=== PATIENT | female | born 1945 | race Caucasian/White ===

== ENCOUNTER 2016-05-02 00:48 | Inpatient (IN) | payer MEDICARE, BC ==
[~2016-05-02] VITALS: Ht 157.5 cm; Wt 67.0 kg
[~2016-05-02 00:48] MED LIST: ALUM5LIQ PO; CHOL50006 PO; CYAN1000P IM; ESTR1TAB PO; FENT100D TD; FENT25DI TD; LEVO137T2 PO; LORTA5 PO; SERT-129 PO
[2016-05-02 00:53] VITALS: BP 225/103; PULSE 70; RESP 16; TEMP 98.1; O2SAT 98
[2016-05-02] MEDS ORDERED: DIATRIZOATE MEGLUM/DIATRIZOATE SOD 9 ML CUP ONE (02:18)
[2016-05-02] MEDS ORDERED: ONDANSETRON HCL 4 MG/2 ML VIAL IVP ONE (02:45)
[2016-05-02] MEDS ORDERED: MORPHINE SULFATE 4 MG/ML INJ IV ONE (02:45)
--- NOTE | 2016-05-02 02:46 | PD ---
HPI Chief Complaint: GI Complaint Time Seen by Provider: 02:13 Travel History International Travel<30 days: No Contact w/Intl Traveler<30days: No Traveled to known affect area: No History of Present Illness HPI 70-year-old female presents with nausea and sharp abdominal pain. Location is central [place]. She states this feels like prior abdominal blockage. She states she's had frequent history of this with last couple months ago. She states all of her hospitalizations have been through our hospital. Quality pain is sharp. Severity is severe. She denies specific modifying factors. She denies other concurrent complaints. 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)) Cardiovascular Problems: Yes (HX OF TACHYCARDIA) Chemotherapy: Yes (last chemo -/GETS HYDRATION THERAPY) Chest Pain: No Congestive Heart Failure: No COPD: No Cerebrovascular Accident: No Diabetes: No Diminished Hearing: No Endocrine: Yes Gastrointestinal Disorders: Yes (HX OF COLON CA, ILEOSTOMY/ DEHYDRATION, CHRONIC IRRITATION ILEOSTOMY SITE) GERD: No Genitourinary: Yes (HX BLADDER CANCER/"KIDNEY FUNCTION ABOUT 25% NORMAL", HOA NEPHROSTOMY TUBES) Headaches: No Hepatitis: No Hiatal Hernia: No Heparin Induced Thrombocytopen: No Hypertension: No Immune Disorder: No Implanted Vascular Access Dvce: Yes (RIGHT SIDED POWER PORT) Kidney Stones: No Medical other: Yes (ANEMIA) Musculoskeletal: Yes (C5-6 HNP, ARTHRITIS) Neurologic: No Psychiatric: No (HX OF DEPRESSION, ANXIETY) Reproductive: No Respiratory: No Immunizations Current: Yes Migraines: No Radiation Therapy: Yes () Renal Failure: Yes (HX OF DIALYSIS PRIOR TO NEPHROSTOMY TUBES ) Seizures: No Sickle Cell Disease: No Sleep Apnea: No Thyroid Disease: Yes (HX OF THYROID CA,TOTAL THYROIDECTOMY 2003) Ulcer: No Tetanus Vaccination: < 5 Years Influenza Vaccination: Yes Menopausal: Yes : 0 Para: 0 Miscarriage: 0 : 0 Past Surgical History Abdominal Surgery: Yes (COLON CA SX/COLOSTOMY 1994,BOWEL OBSTRUCTION ", SACRAL MASS , CHEMO/RAD) AICD: No Appendectomy: Yes Arteriovenous Shunt: No Body Medical Devices: NEPHROSTOMY TUBES, POWER PORT Cardiac Surgery: No Ear Surgery: No Endocrine Surgery: Yes (THYROIDECTOMY 2004, IMPLANTED PARATHYROID IN L UPPER ARM) Eye Surgery: No Genitourinary Surgery: Yes (URETER STENTS -->NEPHROSTOMY TUBES 2010) Gynecologic Surgery: Yes (HYSTERECTOMY) Hysterectomy: Yes Insulin Pump: No Joint Replacement: No Neurologic Surgery: No Oral Surgery: No Pacemaker: No Thoracic Surgery: No Other Surgery: Yes (SKIN CANCER REMOVAL, RIGHT SIDE PORT) Social History Alcohol Use: Yes (SOCIALLY) Tobacco Use: No Substance Use: No Allergies-Medications (Allergen,Severity, Reaction): Coded Allergies: No Known Allergies (Unverified , 05/02/16) Reported Meds & Prescriptions Reported Meds & Active Scripts Active Reported Sertraline (Sertraline HCl) 100 Mg Tab 100 Mg PO HS Levothyroxine (Levothyroxine Sodium) 125 Mcg Tab 125 Mcg PO DAILY [place] (Hydrocodone-Acetaminophen) 5-325 mg Tab 1 Tab PO Q4H PRN Estradiol 1 Mg Tab 1 Mg PO HS Cyanocobalamin Inj (Cyanocobalamin) 1,000 Mcg/Ml Inj 1,000 Mcg IM Q30D Calcitriol 0.25 Mcg Cap 0.25 Mcg PO DAILY Vitamin D (Cholecalciferol) 1,000 Unit Tab 5,000 Units PO DAILY Fentanyl Patch 72 HR (Fentanyl) 25 Mcg/Hr Patch 25 Mcg T-DERMAL Q72H Fentanyl Patch 72 HR (Fentanyl) 100 Mcg/Hr Patch 100 Mcg T-DERMAL Q72H Remove old patch when new one placed. Review of Systems Except as stated in HPI: all other systems reviewed are Neg Physical Exam Narrative GENERAL: Well-nourished, well-developed patient. SKIN: Warm and dry. HEAD: Normocephalic and atraumatic. EYES: No injection or drainage. ENT: No nasal drainage noted. NECK: Supple, trachea midline. CARDIOVASCULAR: Regular rate and rhythm RESPIRATORY: Breath sounds equal bilaterally. No accessory muscle use. GASTROINTESTINAL: Abdomen soft, diffusely tender, nondistended. Colostomy noted NEUROLOGICAL: Awake. Motor and sensory grossly within normal limits. Normal speech. Data Data Last Documented VS Vital Signs Date Time Temp Pulse Resp B/P Pulse Ox O2 Delivery O2 Flow Rate FiO2 05/02/16 03:46 64 18 125/67 97 Room Air 05/02/16 00:53 98.1 Orders Complete Blood Count With Diff (05/02/16 02:13) Comprehensive Metabolic Panel (05/02/16 02:13) Urinalysis - C+S If Indicated (05/02/16 02:13) Lipase (05/02/16 02:13) Iv Access Insert/Monitor (05/02/16 02:13) Oximetry (05/02/16 02:13) Oral Contrast - Adult (05/02/16 02:15) Diatrizoate Liq ( Gastroquirino Liq) (05/02/16 02:18) Morphine Inj (Morphine Inj) (05/02/16 02:45) Ondansetron Inj (Zofran Inj) (05/02/16 02:45) Sodium Chlor 0.9% 1000 Ml Inj (Ns 1000 M (05/02/16 03:30) Ct Abd/Pel W/O Iv Contrast (05/02/16 ) Admit Order (Ed Use Only) (05/02/16 05:02) Consult Colorectal Surgery (05/02/16 ) Consult Urology (05/02/16 ) Labs Laboratory Tests Test 05/02/16 05/02/16 02:35 04:57 White Blood Count 10.2 TH/MM3 Red Blood Count 3.36 MIL/MM3 Hemoglobin 10.5 GM/DL Hematocrit 31.4 % Mean Corpuscular Volume 93.2 FL Mean Corpuscular Hemoglobin 31.3 PG Mean Corpuscular Hemoglobin 33.6 % Concent Red Cell Distribution Width 13.5 % Platelet Count 235 TH/MM3 Mean Platelet Volume 8.7 FL Neutrophils (%) (Auto) 92.2 % Lymphocytes (%) (Auto) 4.4 % Monocytes (%) (Auto) 2.9 % Eosinophils (%) (Auto) 0.1 % Basophils (%) (Auto) 0.4 % Neutrophils # (Auto) 9.4 TH/MM3 Lymphocytes # (Auto) 0.5 TH/MM3 Monocytes # (Auto) 0.3 TH/MM3 Eosinophils # (Auto) 0.0 TH/MM3 Basophils # (Auto) 0.0 TH/MM3 CBC Comment DIFF FINAL Differential Comment Sodium Level 144 MEQ/L Potassium Level 4.3 MEQ/L Chloride Level 113 MEQ/L Carbon Dioxide Level 19.9 MEQ/L Anion Gap 11 MEQ/L Blood Urea Nitrogen 31 MG/DL Creatinine 2.87 MG/DL Estimat Glomerular Filtration 16 ML/MIN Rate Random Glucose 111 MG/DL Calcium Level 8.8 MG/DL Total Bilirubin 0.3 MG/DL Aspartate Amino Transf 16 U/L (AST/SGOT) Alanine Aminotransferase 12 U/L (ALT/SGPT) Alkaline Phosphatase 90 U/L Total Protein 7.7 GM/DL Albumin 2.9 GM/DL Lipase 152 U/L Urine Color LIGHT-YELLOW Urine Turbidity HAZY Urine pH 5.0 Urine Specific [place] 1.010 Urine Protein 30 mg/dL Urine Glucose (UA) NEG mg/dL Urine Ketones NEG mg/dL Urine Occult Blood MOD Urine Nitrite NEG Urine Bilirubin NEG Urine Urobilinogen LESS THAN 2.0 MG/DL Urine Leukocyte Esterase LARGE Urine RBC 6 /hpf Urine WBC 180 /hpf Urine WBC Clumps FEW Urine Squamous Epithelial <1 /hpf Cells Urine Bacteria OCC /hpf Urine Yeast (Budding) RARE Microscopic Urinalysis Comment CULTURE INDICATED MDM Medical Decision Making Medical Screen Exam Complete: Yes Emergency Medical Condition: Yes Medical Record Reviewed: Yes (past history confirmed) Interpretation(s) CBC & BMP Diagram 05/02/16 02:35 Last 24 hours Impressions Abdomen/Pelvis CT 05/02/16 0000 Signed Impressions: Service Date/Time: Monday, May 02, 2016 03:26 - CONCLUSION: Prominent bilateral hydronephrosis. Mild nonspecific distention of small bowel are and small volume of free peritoneal fluid. Small lower abdominal incisional hernia defect containing a knuckle of small bowel. Spencer Sandoval MD ua with uti Differential Diagnosis Obstruction, stone, colitis, diverticulitis, adhesions... Narrative Course Will check blood work, urinalysis, CT scan and dose with morphine and Zofran and reevaluate ed workup with acute renal failure, UTI, hydronephrosis, incisional hernia defect without bowel obstruction, will discuss with her specialist and admit to the hospital Physician Communication Physician Communication spencer de anda states to admit to dr lucy gil states to admit with iv antibiotics and consult IR for percutaneous drain on right later today as she can't wait to have done tuesday now Diagnosis Primary Impression: Acute renal failure Qualified Code: N17.9 - Acute renal failure, unspecified acute renal failure type Additional Impressions: Hydronephrosis Qualified Code: N13.30 - Hydronephrosis, unspecified hydronephrosis type UTI (urinary tract infection) Qualified Code: N39.0 - Urinary tract infection without hematuria, site unspecified Incisional hernia Qualified Code: K43.2 - Incisional hernia, without obstruction or gangrene Admitting Information Admitting Physician Requests: it Omayra Rider MD May 02, 2016 02:46
[2016-05-02 02:50] LABS: AUTOMATED NEUTROPHIL # 9.4 TH/MM3 (1.8-7.7); BASOPHIL % 0.4 % (0.0-2.0); EOSINOPHIL % 0.1 % (0.0-4.0); HEMATOCRIT 31.4 % (35.0-46.0); HEMO FLAGS DIFF FINAL; LYMPH % 4.4 % (9.0-44.0); LYMPHOCYTE # 0.5 TH/MM3 (1.0-4.8); MEAN CELL VOLUME 93.2 FL (80.0-100.0); MEAN CORPUSCULAR HEMOGLOBIN 31.3 PG (27.0-34.0); MEAN CORPUSCULAR HGB CONC 33.6 % (32.0-36.0); MONO % 2.9 % (0.0-8.0); NEUT % 92.2 % (16.0-70.0); PLATELET COUNT 235 TH/MM3 (150-450); RED BLOOD COUNT 3.36 MIL/MM3 (4.00-5.30); RED CELL DISTRIBUTION WIDTH 13.5 % (11.6-17.2); WHITE BLOOD COUNT 10.2 TH/MM3 (4.0-11.0)
[2016-05-02 03:10] LABS: ALT (GPT) 12 U/L (10-53); ANION GAP 11 MEQ/L (5-15); AST (GOT) 16 U/L (15-37); BICARBONATE 19.9 MEQ/L (21.0-32.0); BLOOD UREA NITROGEN 31 MG/DL (7-18); CHLORIDE 113 MEQ/L (98-107); GLOMERULAR FILTRATION RATE 16 ML/MIN (>89); POTASSIUM 4.3 MEQ/L (3.5-5.1); SODIUM (NA) 144 MEQ/L (136-145)
[2016-05-02 03:12] LABS: ALKALINE PHOSPHATASE 90 U/L (45-117); TOTAL BILIRUBIN ADULT 0.3 MG/DL (0.2-1.0)
[2016-05-02] MEDS ORDERED: SODIUM CHLOR 0.9% 1000 ML INJ 1,000 ML IV ONE (03:30)
[2016-05-02 03:46] VITALS: BP 125/67; PULSE 64; RESP 18; O2SAT 97
[2016-05-02] MEDS ORDERED: FENT25DI T-DERMAL (04:44)
[2016-05-02] MEDS ORDERED: FENT100D T-DERMAL (04:44)
--- NOTE | 2016-05-02 04:52 | RADRPT ---
EXAM DATE/TIME: 05/02/2016 03:26 [facility] COMPARISON: CT ABDOMEN & PELVIS W/O CONTRAST, July 06, 2014, 20:20. CT ABDOMEN W/O CONTRAST, October 07, 2015, 17: 58. INDICATIONS : Patient complains of abdominal pain, nausea, and vomiting. ORAL CONTRAST: Prescribed oral contrast ingested. RADIATION DOSE: 8.90 CTDIvol (mGy) MEDICAL HISTORY : Carcinoma, bladder. Carcinoma, colon. Carcinoma, thyroid.Renal failure SURGICAL HISTORY : Thyroidectomy. Appendectomy.Hysterectomy.Ileostomy, nephrostomy tubes ENCOUNTER: Initial ACUITY: 1 day PAIN SCALE: 8/10 LOCATION: Bilateral abdomen TECHNIQUE: Volumetric scanning of the abdomen and pelvis was performed. Using automated exposure control and ad justment of the mA and/or kV according to patient size, radiation dose was kept as low as reasonably achievable to obtain optimal diagnostic quality images. FINDINGS: There is prominent bilateral hydronephrosis and hydroureter. A ureteral stent is present on the right side appears to be in satisfactory position. Urinary bladder is minimally distended. The liver, spleen, pancreas and adrenals are stable and benign. A left lower quadrant ostomy is present. A small hernia defect is present along the inferior aspect o f a midline incision. The defect contains a knuckle of small bowel. There is mild distention of small bowel throughout the abdomen. The colon is nondilated. There is a small volume of nonspecific free p eritoneal fluid best seen in the right paracolic gutter. No evidence of pneumoperitoneum. Presacral surgical clips, scarring and calcification is unchanged. The vascular structures are normal in caliber. There is no retroperitoneal adenopathy. Bony elements are stable and benign. CONCLUSION: Prominent bilateral hydronephrosis. Mild nonspecific distention of small bowel are and small volume of free peritoneal fluid. Small lower abdominal incisional hernia defect containing a knuckle of small bowel. Joseluis Sandoval MD on May 02, 2016 at 4:37 Board Certified Radiologist. This report was verified electronically.
[2016-05-02] MEDS ORDERED: NALOXONE HCL 0.4 MG/ML AMP IV PRN (05:15)
[2016-05-02] MEDS ORDERED: ONDANSETRON HCL 4 MG/2 ML VIAL IVP PRN (05:15)
[2016-05-02] MEDS ORDERED: ACETAMINOPHEN 325 MG TAB PO PRN (05:15)
[2016-05-02] MEDS ORDERED: MORPHINE SULFATE 4 MG/ML INJ IV PRN (05:15)
[2016-05-02 05:21] LABS: BACTERIA, URINE OCC /hpf; BLOOD, URINE MOD (NEG); COMMENT (UR) CULTURE INDICATED; CULTURE IF INDICATED CULTURE INDICATED; GLUCOSE,URINE NEG (NEG); KETONE, URINE NEG (NEG); NITRITE,URINE NEG (NEG); SQUAMOUS EPITHELIAL CELL URINE <1 /hpf (0-5); URINE COLOR LIGHT-YELLOW (YELLW/STRAW)
[2016-05-02] MEDS ORDERED: SERT-129 PO (05:41)
[2016-05-02] MEDS ORDERED: CYAN1000P IM (05:41)
[2016-05-02] MEDS ORDERED: LEVO125T4 PO (05:41)
[2016-05-02] MEDS ORDERED: CALC0.25 PO (05:41)
[2016-05-02] MEDS ORDERED: NORC5TAB PO (05:41)
[2016-05-02] MEDS ORDERED: ESTR1TAB PO (05:41)
[2016-05-02] MEDS ORDERED: VITA100064 PO (05:41)
[2016-05-02] MEDS ORDERED: cefTRIAXone INJ 1,000 MG in SODIUM CHLORIDE 0.9% INJ 100 ML IV ONE (05:45)
[2016-05-02] MEDS: SODIUM CHLOR 0.9% 1000 ML INJ 1,000 ML IV SCH ×3 (06:22→15:24)
[2016-05-02 06:33] LABS: APTT (PATIENT) 30.3 SEC (24.3-30.1); PROTHROMBIN TIME - PATIENT 11.5 SEC (9.8-11.6)
[2016-05-02] MEDS: HEPARIN SODIUM - SQ 10,000 UNITS/ML VIAL SQ SCH ×2 (06:43→17:14)
[2016-05-02 08:00] VITALS: BP 136/69; PULSE 59; RESP 17; TEMP 98.1; O2SAT 99
[2016-05-02] MEDS: SODIUM CHLORIDE 0.9% FLUSH 5 ML FLUSH FLUSH SCH ×3 (08:25→21:00)
[2016-05-02] MEDS: SODIUM CHLORIDE 0.9% FLUSH 5 ML FLUSH FLUSH PRN ×2 (08:59→18:34)
[2016-05-02] MEDS: MORPHINE SULFATE 4 MG/ML INJ IV PRN ×5 (08:59→21:44)
--- NOTE | 2016-05-02 11:04 | MB ---
cc: MARCUS BUNN MD DATE OF CONSULTATION: 05/02/2016 REASON FOR CONSULTATION: HISTORY OF PRESENT ILLNESS: The patient is a 70 year-old with a complex surgical history including abdominal perineal resection years ago for rectal cancer. The surgery was performed elsewhere. She developed local recurrence and was treated with a second resection combined with radiation and chemotherapy. 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 She has had subsequent surgeries with creation of ileostomy and then reversal of the ileostomy. She continues to have poorly formed stools and has chronic dehydration and receives intravenous fluids three times a week as an outpatient. 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 She has an indwelling stent in the right kidney. The left kidney is unstented. Her creatinine is chronically elevated. She is followed by Dr. Kitchen. In the past three days she has developed onset of crampy abdominal pain which feels like obstructions that she has had in the past. Her stomal output ceased. She had nausea and vomiting. Since coming to the hospital last evening she has felt better. She has less cramping. No vomiting, and some stool has moved into her ostomy bag this morning. CT scan on admission showed some moderately dilated small bowel and stomach extending to the site of the ventral hernia and and the low midline incision which contained a loop of small bowel. The bowel appears to be collapsed distal to the hernia. On exam she is alert without distress. She is afebrile. Normal vital signs. Her respirations are normal. Skin is warm and dry. Abdomen is soft. There is some mild tenderness around the hernia site in the lower abdomen. The hernia is not tense at this time. It feels as though it may be reduced. The stoma is normal in appearance. The stool is light colored and mushy. Digital exam of the stoma reveals a parastomal hernia. LABORATORY DATA: Normal white blood cell count. Creatinine is chronically elevated at 2.8. Urinalysis shows urinary tract infection. ASSESSMENT: Episode of small bowel obstruction which may be due to a small bowel hernia in her midline incision. The symptoms appear to be resolving at this time. The patient does have a urinary tract infection. PLAN The patient is admitted to hospital for IV fluids and antibiotics for UTI. She does not have an NG tube at this time, but if there is further vomiting an NG may be required. MD FADY Barrett/POLLO /9:48 AM /10:44 AM TIM
[2016-05-02 12:00] VITALS: BP 134/68; PULSE 58; RESP 16; TEMP 96.3; O2SAT 99
--- NOTE | 2016-05-02 12:58 | HHI.HP ---
HPI Service [facility] Primary Care Physician Addy Oakley MD Admission Diagnosis renal failure, hydronephrosis Diagnoses: Travel History International Travel<30 Days: No Contact w/Intl Traveler <30 Da: No Traveled to Known Affected Are: No History of Present Illness This is a 70 year old female known to the undersigned from previous admission with history significant for colorectal cancer with colostomy reversal and ileostomy, she's had recurrence of cancer and had a second resection combined radiation chemotherapy. She had subsequent complications secondary to surgery. On July 11, 2014 she underwent exploratory lap with lysis of adhesions resection ileostomy and ileocolostomy per Dr. Douglas. Prior to that she had an ileostomy revision on June 19, 2014. She's has continued to have problems with her ostomy, and dehydration. She goes for weekly hydration therapy at Dr. Swanson's office her oncologist at [facility]. 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 She's had indwelling stents to the right kidney, which she had replaced on February 10, 2016 per . According to the patient this was a catheter that is better for long-term. Renal function has been monitored very closely. According to the patient, she had been in to see her urologist this past Tuesday as her creatinine had been increasing and she was concerned that her stent needed to be revised. She was actually scheduled to have procedure done in interventional radiology and the plan was to externalize stent to monitor output. Yesterday she started to have subjective fever, no chills. A few days ago she started to have sharp mid abdominal pain that worsened yesterday associated with nausea and vomiting. Indicates vomitus was foamy, no blood. She's had very little intake. Her ostomy output decreased. She has noted decrease in urine output as well. She presented to the hospital for evaluation. In the emergency room, she had laboratory workup completed. CBC was unremarkable other than chronic anemia. No WBC elevation. She was noted with the line of 31, creatinine of 2.87 and GFR of 16. Which appears worse than in previous admissions. Urinalysis was positive for leukocyte esterase and WBC. Blood pressure was noted initially in the 200s which has now stabilized. She had an abdomen and pelvis CT that show prominent bilateral hydronephrosis, mild nonspecific distention small bowel and small volume of free peritoneal fluid. Small lower abdominal incisional hernia defect containing a knuckle of small bowel. Urologist Dr. Manning was called from the emergency room and requested the patient be admitted for IV antibiotics and to consult interventional radiology for percutaneous drain of the right ureter later today. Patient is not evaluated, complains of mid abdominal discomfort that has improved. She's no longer having any nausea or vomiting. She has been evaluated by Dr. Vergara who is covering for Dr. Douglas. At this time the plan is to continue with conservative management and Dr. Douglas will follow up with her in the morning. Patient is admitted for further evaluation and treatment Review of Systems Constitutional: COMPLAINS OF: Fever (subjective fever ), Chills, DENIES: Diaphoretic episodes, Fatigue, Weight gain, Weight loss, Dizziness, Change in appetite, Night Sweats Endocrine: DENIES: Abnorml menstrual pattern, Heat/cold intolerance, Polydipsia , Polyuria, Polyphagia Eyes: DENIES: Blurred vision, Diplopia, Eye inflammation, Eye pain, Vision loss , Photosensitivity, Double Vision Ears, nose, mouth, throat: DENIES: Tinnitus, Hearing loss, Vertigo, Nasal discharge, Oral lesions, Throat pain, Hoarseness, Ear Pain, Running Nose, Epistaxis, Sinus Pain, Toothache, Odynophagia Respiratory: DENIES: Apneas, Cough, Snoring, Wheezing, Hemoptysis, Sputum production, Shortness of breath Cardiovascular: DENIES: Chest pain, Palpitations, Syncope, Dyspnea on Exertion , PND, Lower Extremity Edema, Orthopnea, Claudication Gastrointestinal: COMPLAINS OF: Abdominal pain, Nausea, Vomiting, DENIES: Black stools, Bloody stools, Constipation, Diarrhea, Difficulty Swallowing, Anorexia Genitourinary: DENIES: Abnormal vaginal bleeding, Dysmenorrhea, Dyspareunia, Sexual dysfunction, Urinary frequency, Urinary incontinence, Urgency, Hematuria , Dysuria, Nocturia, Vaginal discharge Musculoskeletal: DENIES: Joint pain, Muscle aches, Stiffness, Joint Swelling, Back pain, Neck pain Integumentary: DENIES: Abnormal pigmentation, Pruritus, Rash, Nail changes, Breast masses, Breast skin changes, Nipple discharge Hematologic/lymphatic: DENIES: Bruising, Lymphadenopathy Immunologic/allergic: DENIES: Eczema, Urticaria Neurologic: DENIES: Abnormal gait, Headache, Localized weakness, Paresthesias, Seizures, Speech Problems, Tremor, Poor Balance Psychiatric: DENIES: Anxiety, Confusion, Mood changes, Depression, Hallucinations, Agitation, Suicidal Ideation, Homicidal Ideation, Delusions Past Family Social History Past Medical History 1. Colorectal cancer diagnosed in 1994 with recurrence to the sacrum in 1996. She underwent chemotherapy, radiation and resection. Colostomy reversed and had an ileostomy created in 2010. 2. Prior admission for dehydration. 3. Bowel obstruction. 4. 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 5. Hypothyroidism. 6. Depression. 7. Skin cancer. 8. Thyroid cancer 2003. 9. Bladder cancer. 10. Gout. 11. Indwelling bilateral nephro-ureteral catheters secondary to bilateral ureteral strictures, placed October of [address] Villalta, with recent exchanged in December 2013 and February 2014. 12. Recurrent urinary tract infections, currently being treated for Pseudomonas in the urine with Zosyn and Cipro. 13. PORT-A-CATH insertion. 14. Tachycardia. 15. Hysterectomy. 16. Appendectomy. 17. Previous dialysis. 18. Hydration therapy which she has done frequently at Dr. Swanson's office. 19. Thyroidectomy. 20. Bowel obstruction that did not require surgical intervention. 21. Status post ileostomy revision 06/19/2014 22. Status post exploratory lap, lysis of adhesions, resection of ileostomy and ileocolostomy July 11, 2014 23. Left nephrostomy tube removal 24. Right nephrostomy tube exchange February 10, 2016 Reported Medications Reported Meds & Active Scripts Active Reported Sertraline (Sertraline HCl) 100 Mg Tab 100 Mg PO HS Levothyroxine (Levothyroxine Sodium) 125 Mcg Tab 125 Mcg PO DAILY [place] (Hydrocodone-Acetaminophen) 5-325 mg Tab 1 Tab PO Q4H PRN Estradiol 1 Mg Tab 1 Mg PO HS Cyanocobalamin Inj (Cyanocobalamin) 1,000 Mcg/Ml Inj 1,000 Mcg IM Q30D Calcitriol 0.25 Mcg Cap 0.25 Mcg PO DAILY Vitamin D (Cholecalciferol) 1,000 Unit Tab 5,000 Units PO DAILY Fentanyl Patch 72 HR (Fentanyl) 25 Mcg/Hr Patch 25 Mcg T-DERMAL Q72H Fentanyl Patch 72 HR (Fentanyl) 100 Mcg/Hr Patch 100 Mcg T-DERMAL Q72H Remove old patch when new one placed. Allergies: Coded Allergies: No Known Allergies (Unverified , 05/02/16) Active Ordered Medications Inpatient Medications Acetaminophen (Tylenol) 650 mg Q6H PRN PO PAIN SCALE 1 TO 2; Start 05/02/16 at 05:15 Ceftriaxone Sodium/Sodium Chloride (Rocephin Inj/NS Inj) 100 ml @ 200 mls/hr ONCE ONCE IV Last administered on 05/02/16 06:22; Start 05/02/16 at 05:45; Stop 05/02/16 at 06:14; Status DC Heparin Sodium (Porcine) (Heparin Inj) 5,000 units Q12H SQ Last administered on 05/02/16 06:43; Start 05/02/16 at 05:15 IV Flush (NS Flush) 2 ml BID FLUSH Last administered on 05/02/16 08:27; Start 05/02/16 at 09:00 Morphine Sulfate (Morphine Inj) 4 mg Q3H PRN IV Pain 6-10;if unable to take PO Last administered on 05/02/16 12:22; Start 05/02/16 at 05:15 Naloxone HCl 0.4 mg 0.4 mg UNSCH PRN IV SEE LABEL COMMENTS; Start 05/02/16 at 05 :15 Ondansetron HCl (Zofran Inj) 4 mg Q6H PRN IVP NAUSEA OR VOMITING Last administered on 05/02/16 08:27; Start 05/02/16 at 05:15 Ondansetron HCl 4 mg 4 mg ONCE ONCE IVP Last administered on 05/02/16 03:25; Start 05/02/16 at 02:45; Stop 05/02/16 at 02:46; Status DC Sodium Chloride (NS 1000 ml Inj) 1,000 ml @ 125 mls/hr Q8H IV Last administered on 05/02/16 12:23; Start 05/02/16 at 05:06 Family History Reviewed and noncontributory. Social History The patient is , has no children. 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 There is no tobacco, very rare alcohol use. No substance abuse. Physical Exam Vital Signs Vital Signs Date Time Temp Pulse Resp B/P Pulse Ox O2 Delivery O2 Flow Rate FiO2 05/02/16 12:00 96.3 58 16 134/68 99 05/02/16 08:00 98.1 59 17 136/69 99 05/02/16 03:46 64 18 125/67 97 Room Air 05/02/16 00:53 98.1 70 16 225/103 98 Physical Exam GENERAL: This is a well-nourished, well-developed patient, in no apparent distress. SKIN: No rashes, ecchymoses or lesions. Cool and dry. HEAD: Atraumatic. Normocephalic. No temporal or scalp tenderness. EYES: Pupils equal round and reactive. Extraocular motions intact. No scleral icterus. No injection or drainage. ENT: Nose without bleeding, purulent drainage or septal hematoma. Throat without erythema, tonsillar hypertrophy or exudate. Uvula midline. Airway patent. NECK: Trachea midline. No JVD or lymphadenopathy. Supple, nontender, no meningeal signs. CARDIOVASCULAR: Regular rate and rhythm without murmurs, gallops, or rubs. Port noted to right chest wall. RESPIRATORY: Clear to auscultation. Breath sounds equal bilaterally. No wheezes , rales, or rhonchi. GASTROINTESTINAL: Abdomen soft, mildly tender to mid abdomen. Small hernia noted mid abdomen, soft. She has a colostomy to the left lower abdomen with small amount of soft, mushy stool. MUSCULOSKELETAL: Extremities without clubbing, cyanosis, or edema. No joint tenderness, effusion, or edema noted. No calf tenderness. Negative Homans sign bilaterally. NEUROLOGICAL: Awake and alert. Cranial nerves II through XII intact. Motor and sensory grossly within normal limits. Five out of 5 muscle strength in all muscle groups. Normal speech. Laboratory Laboratory Tests Test 05/02/16 05/02/16 05/02/16 02:35 04:57 06:17 White Blood Count 10.2 Red Blood Count 3.36 Hemoglobin 10.5 Hematocrit 31.4 Mean Corpuscular Volume 93.2 Mean Corpuscular Hemoglobin 31.3 Mean Corpuscular Hemoglobin 33.6 Concent Red Cell Distribution Width 13.5 Platelet Count 235 Mean Platelet Volume 8.7 Neutrophils (%) (Auto) 92.2 Lymphocytes (%) (Auto) 4.4 Monocytes (%) (Auto) 2.9 Eosinophils (%) (Auto) 0.1 Basophils (%) (Auto) 0.4 Neutrophils # (Auto) 9.4 Lymphocytes # (Auto) 0.5 Monocytes # (Auto) 0.3 Eosinophils # (Auto) 0.0 Basophils # (Auto) 0.0 CBC Comment DIFF FINAL Differential Comment Sodium Level 144 Potassium Level 4.3 Chloride Level 113 Carbon Dioxide Level 19.9 Anion Gap 11 Blood Urea Nitrogen 31 Creatinine 2.87 Estimat Glomerular Filtration 16 Rate Random Glucose 111 Calcium Level 8.8 Total Bilirubin 0.3 Aspartate Amino Transf 16 (AST/SGOT) Alanine Aminotransferase 12 (ALT/SGPT) Alkaline Phosphatase 90 Total Protein 7.7 Albumin 2.9 Lipase 152 Urine Color LIGHT-YELLOW Urine Turbidity HAZY Urine pH 5.0 Urine Specific [place] 1.010 Urine Protein 30 Urine Glucose (UA) NEG Urine Ketones NEG Urine Occult Blood MOD Urine Nitrite NEG Urine Bilirubin NEG Urine Urobilinogen LESS THAN 2.0 Urine Leukocyte Esterase LARGE Urine RBC 6 Urine WBC 180 Urine WBC Clumps FEW Urine Squamous Epithelial <1 Cells Urine Bacteria OCC Urine Yeast (Budding) RARE Microscopic Urinalysis Comment CULTURE INDICATED Prothrombin Time 11.5 Prothromb Time International 1.0 Ratio Activated Partial 30.3 Thromboplast Time Date/Time Procedure Status Source Growth 05/02/16 04:57 Urine Culture Received Urine Clean Catch Pending Result Diagram: 05/02/16 0235 05/02/16 0235 Imaging Last Impressions Abdomen/Pelvis CT 05/02/16 0000 Signed Impressions: Service Date/Time: Monday, May 02, 2016 03:26 - CONCLUSION: Prominent bilateral hydronephrosis. Mild nonspecific distention of small bowel are and small volume of free peritoneal fluid. Small lower abdominal incisional hernia defect containing a knuckle of small bowel. Joseluis Sandoval MD Assessment and Plan Problem List: (1) SBO (small bowel obstruction) (2) Hydronephrosis (3) Incisional hernia (4) UTI (urinary tract infection) (5) Acute renal failure (6) Chronic bilateral ureteral strictures (7) CKD (chronic kidney disease) (8) History of colorectal cancer (9) Nephrostomy tubes, chronic Plan: only has one left now in the right (10) Chronic pain Assessment and Plan Admit to Dr. White 70-year-old female with history of multiple bowel surgeries secondary to colon cancer, with colostomy reversal and ileostomy. 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 She had subsequent complications secondary to surgery. 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 Has an indwelling right nephrostomy tube in place. Presented to the emergency room with complaint of abdominal pain nausea vomiting decreased ostomy output. CT findings of small bowel obstruction with a small lower abdominal incisional hernia defect. -Consult colorectal surgeon, Dr. Douglas. Patient has been evaluated per Dr. Vergara. Continue with conservative management at this time. 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 Has indwelling right nephrostomy tube in place. Noted were worsening kidney function. -Urology has been consulted for evaluation, the plan is for interventional radiology to place a percutaneous drain to the right Acute on chronic kidney disease, patient is usually stage III -Continue with IV fluids Repeat BMP in the morning Avoid nephrotoxic agents Recurrent UTI Continue with antibiotics -Follow urine culture Chronic pain Resume home medications, patient on fentanyl patch Home medications reviewed, initiated as indicated SCDs/Heparin for DVT prophylaxis Plan of care has been discussed with the patient, attending and registered nurse. Further management of the patient will be dependent on the hospital course This patient was seen by myself and Dr. White, this H&P is written on her behalf Physician Certification 2 Midnight Certification Type: Admission for Inpatient Services Order for Inpatient Services The services are ordered in accordance with Medicare regulations or non- Medicare payer requirements, as applicable. In the case of services not specified as inpatient-only, they are appropriately provided as inpatient services in accordance with the 2-midnight benchmark. Estimated LOS (days): 2 2 days is the estimated time the patient will need to remain in the hospital, assuming treatment plan goals are met and no additional complications. Post-Hospital Plan: Home Problem Qualifiers (1) Hydronephrosis: Qualified Code: N13.30 - Hydronephrosis, unspecified hydronephrosis type (2) Incisional hernia: Qualified Code: K43.2 - Incisional hernia, without obstruction or gangrene (3) UTI (urinary tract infection): Qualified Code: N39.0 - Urinary tract infection without hematuria, site unspecified (4) Acute renal failure: Qualified Code: N17.9 - Acute renal failure, unspecified acute renal failure type (5) CKD (chronic kidney disease): Qualified Code: N18.3 - CKD (chronic kidney disease), stage 3 (moderate) (6) Chronic pain: Qualified Code: G89.4 - Chronic pain syndrome Briseida Don May 02, 2016 12:58
[2016-05-02 16:00] VITALS: BP 132/67; PULSE 58; RESP 17; TEMP 96.8; O2SAT 98
[2016-05-02] MEDS ORDERED: fentaNYL 100 MCG/HR PATCH TD SCH (17:00)
[2016-05-02] MEDS ORDERED: fentaNYL 25 MCG/HR PATCH TD SCH (17:00)
[2016-05-02 20:00] VITALS: BP 125/65; PULSE 65; RESP 20; TEMP 98.7; O2SAT 98
[2016-05-02] MEDS: SERTRALINE HCL 100 MG TAB PO SCH (21:00)
[2016-05-02] MEDS: ESTRADIOL 1 MG TAB PO SCH (21:00)
[2016-05-03 02:45] VITALS: BP 125/58; PULSE 57; RESP 18; TEMP 99; O2SAT 96
[2016-05-03] MEDS: LEVOTHYROXINE SODIUM 125 MCG TAB PO SCH (06:11)
[2016-05-03] MEDS: SODIUM CHLOR 0.9% 1000 ML INJ 1,000 ML IV SCH ×3 (06:13→20:35)
[2016-05-03] MEDS: HEPARIN SODIUM - SQ 10,000 UNITS/ML VIAL SQ SCH (06:13)
[2016-05-03 06:38] LABS: AUTOMATED NEUTROPHIL # 5.4 TH/MM3 (1.8-7.7); BASOPHIL % 0.4 % (0.0-2.0); EOSINOPHIL # 0.1 TH/MM3 (0-0.4); EOSINOPHIL % 1.8 % (0.0-4.0); HEMATOCRIT 27.1 % (35.0-46.0); HEMO FLAGS DIFF FINAL; LYMPH % 13.1 % (9.0-44.0); LYMPHOCYTE # 0.9 TH/MM3 (1.0-4.8); MEAN CELL VOLUME 94.1 FL (80.0-100.0); MEAN CORPUSCULAR HEMOGLOBIN 31.8 PG (27.0-34.0); MEAN CORPUSCULAR HGB CONC 33.8 % (32.0-36.0); MONO % 6.7 % (0.0-8.0); PLATELET COUNT 198 TH/MM3 (150-450); RED BLOOD COUNT 2.88 MIL/MM3 (4.00-5.30); RED CELL DISTRIBUTION WIDTH 13.6 % (11.6-17.2); WHITE BLOOD COUNT 6.9 TH/MM3 (4.0-11.0)
[2016-05-03 07:24] LABS: BICARBONATE 18.4 MEQ/L (21.0-32.0); POTASSIUM 4.1 MEQ/L (3.5-5.1)
[2016-05-03] MEDS: CHOLECALCIFEROL (VIT D3) 5000 UNIT CAP PO SCH (07:57)
[2016-05-03] MEDS: SODIUM CHLORIDE 0.9% FLUSH 5 ML FLUSH FLUSH SCH ×2 (07:57→20:35)
[2016-05-03] MEDS: CALCITRIOL 0.25 MCG CAP PO SCH (07:57)
[2016-05-03 08:00] VITALS: BP 128/60; PULSE 62; RESP 16; TEMP 97.7; O2SAT 95
[2016-05-03] MEDS: MORPHINE SULFATE 4 MG/ML INJ IV PRN ×3 (11:24→21:48)
[2016-05-03 12:00] VITALS: BP 134/65; PULSE 61; RESP 16; TEMP 96.7; O2SAT 96
--- NOTE | 2016-05-03 12:21 | HHI.PR ---
Subjective Remarks anxious to leave, wants to get procedure done and be discharged no cp no sob minimal abd. discomfort passing gas very little ostomy output no n/v afebrile Objective Objective Results - Vital Signs Date Time Temp Pulse Resp B/P Pulse Ox O2 Delivery O2 Flow Rate FiO2 05/03/16 08:00 97.7 62 16 128/60 95 05/03/16 02:45 99.0 57 18 125/58 96 05/02/16 20:00 98.7 65 20 125/65 98 05/02/16 16:00 96.8 58 17 132/67 98 05/02/16 15:31 16 I/O 05/02/16 05/02/16 05/02/16 05/03/16 05/03/16 05/03/16 07:00 15:00 23:00 07:00 15:00 23:00 Intake Total 1125 ml 817 ml 556 ml Output Total 250 ml 600 ml 700 ml Balance 875 ml 217 ml -144 ml Intake Oral 120 ml 120 ml 0 ml IV Total 1005 ml 697 ml 556 ml Output Urine Total 250 ml 600 ml 700 ml # Bowel Movements 0 Result Diagram: 05/03/16 0620 05/03/16 0620 Imaging Last Impressions Abdomen/Pelvis CT 05/02/16 0000 Signed Impressions: Service Date/Time: Monday, May 02, 2016 03:26 - CONCLUSION: Prominent bilateral hydronephrosis. Mild nonspecific distention of small bowel are and small volume of free peritoneal fluid. Small lower abdominal incisional hernia defect containing a knuckle of small bowel. Joseluis Sandoval MD Other Results Laboratory Tests Test 05/03/16 06:20 White Blood Count 6.9 Red Blood Count 2.88 Hemoglobin 9.2 Hematocrit 27.1 Mean Corpuscular Volume 94.1 Mean Corpuscular Hemoglobin 31.8 Mean Corpuscular Hemoglobin 33.8 Concent Red Cell Distribution Width 13.6 Platelet Count 198 Mean Platelet Volume 8.8 Neutrophils (%) (Auto) 78.0 Lymphocytes (%) (Auto) 13.1 Monocytes (%) (Auto) 6.7 Eosinophils (%) (Auto) 1.8 Basophils (%) (Auto) 0.4 Neutrophils # (Auto) 5.4 Lymphocytes # (Auto) 0.9 Monocytes # (Auto) 0.5 Eosinophils # (Auto) 0.1 Basophils # (Auto) 0.0 CBC Comment DIFF FINAL Differential Comment Sodium Level 144 Potassium Level 4.1 Chloride Level 115 Carbon Dioxide Level 18.4 Anion Gap 11 Blood Urea Nitrogen 25 Creatinine 2.74 Estimat Glomerular Filtration 17 Rate Random Glucose 64 Calcium Level 7.5 Date/Time Procedure Status Source Growth 05/02/16 04:57 Urine Culture - Final Complete Urine Clean Catch 50-100,000 CFU/ML MIXED GRAM POSITIVE... ROS General: No: Fatigue, Weakness HEENT: No: Sore Throat, Dysphagia Cardiac: No: Chest Pain, Edema, Palpitations Pulmonary: No: Cough, SOB, Wheezing GI: Abdominal Pain, No: BM, Diarrhea, N/V, Other /HALAL BUTCHER: No: Dysuria, Urgency Neuro/MS: No: Lightheaded, Confusion Psych: No: Anxiety, Depression Skin: No: Itching, Rash Physical Exam Physical Exam PHYSICAL EXAMINATION GENERAL: This is a well-developed, well-nourished female who appears to be in no acute distress. She is alert and awake, []. HEAD: Normocephalic without any lesion or mass noted. Facial features appear symmetric. EYES: Perrla, Normal eye movement, [] Icterus. [] Conj congestion. OROPHARYNGEAL: Oropharynx without erythema or edema. MOUTH/THROAT: Tongue midline []. Buccal mucosa is moist []. NECK: Supple. No nuchal rigidity or lymphadenopathy. Trachea midline without deviation. Thyroid not palpable, no bruits appreciated. CARDIAC: Regular rhythm, regular rate, S1 and S2 are heard. Murmur []; no gallops or rubs. LUNGS: Clear to auscultation bilaterally. [] wheeze, [] rhonchi or [] rale. No use of accessory muscles on inspiration or expiration. ABDOMEN: Soft, nontender, no organomegaly or masses. Bowel sounds are heard in all four quadrants. No rebound. No guarding. EXTREMITIES: [] edema. Pulses equal bilateral. [] cyanosis. NEUROLOGICAL: Patient mood and affect appropriate. Cranial nerves II through XII grossly intact. Muscle strength 5/5 in the upper and lower extremities bilaterally. Deep tendon reflexes are 2+ in the upper and lower extremities bilaterally. SKIN:Warm and moist PSYCH: Mood and affect appropriate Urinary Catheter: No Vascular Central Line Catheter: No A/P Diagnosis: (1) SBO (small bowel obstruction) (2) Hydronephrosis (3) Incisional hernia (4) UTI (urinary tract infection) (5) Acute renal failure (6) Chronic bilateral ureteral strictures (7) CKD (chronic kidney disease) (8) History of colorectal cancer (9) Nephrostomy tubes, chronic Plan: only has one left now in the right (10) Chronic pain Assessment and Plan 70-year-old female with history of multiple bowel surgeries secondary to colon cancer, with colostomy reversal and ileostomy. 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 She had subsequent complications secondary to surgery. 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 Has an indwelling right nephrostomy tube in place. Presented to the emergency room with complaint of abdominal pain nausea vomiting decreased ostomy output. CT findings of small bowel obstruction with a small lower abdominal incisional hernia defect. -Consult colorectal surgeon, Dr. Douglas. Patient has been evaluated per Dr. Vergara. Continue with conservative management at this time. 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 Has indwelling right nephrostomy tube in place. Noted were worsening kidney function. -Urology has been consulted for evaluation, the plan is for interventional radiology to place a percutaneous drain to the right today -waiting to go Acute on chronic kidney disease, patient is usually stage III -Continue with IV fluids Repeat BMP in the morning Avoid nephrotoxic agents Recurrent UTI -states she follows up with ID as OP, urine is chronically dirty, but she's asymptomatic, no fever, no chills Continue with antibiotics -Follow urine culture-mixed GPC Chronic pain -Continue home medications, patient on fentanyl patch SCDs/Heparin for DVT prophylaxis Appears improving in regards to inc. hernia, continue as above for drain today Labs reviewed D/W RN D/W pt D/W Dr. Adame This patient was seen by myself and Dr. Adame, this note is written on her behalf Problem Qualifiers (1) Hydronephrosis: Qualified Code: N13.30 - Hydronephrosis, unspecified hydronephrosis type (2) Incisional hernia: Qualified Code: K43.2 - Incisional hernia, without obstruction or gangrene (3) UTI (urinary tract infection): Qualified Code: N39.0 - Urinary tract infection without hematuria, site unspecified (4) Acute renal failure: Qualified Code: N17.9 - Acute renal failure, unspecified acute renal failure type (5) CKD (chronic kidney disease): Qualified Code: N18.3 - CKD (chronic kidney disease), stage 3 (moderate) (6) Chronic pain: Qualified Code: G89.4 - Chronic pain syndrome Briseida Don [facility] May 03, 2016 12:20
[2016-05-03 16:00] VITALS: BP 131/66; PULSE 75; RESP 16; TEMP 95.6; O2SAT 99
--- NOTE | 2016-05-03 16:05 | HHI.PR ---
Subjective Remarks C/R Surg afebrile, VSS UO good stoma little Objective - Vital Signs Date Time Temp Pulse Resp B/P Pulse Ox O2 Delivery O2 Flow Rate FiO2 05/03/16 15:38 20 05/03/16 12:00 96.7 61 134/65 96 05/02/16 03:46 Room Air Result Diagram: 05/03/16 0620 05/03/16 0620 Objective Remarks PE alert Abd - soft, no tympany, non-tender, hernia reduced A/P Assessment and Plan Imp: incr PO OOB renal stent/percut tube to be placed Daniel Douglas MD May 03, 2016 16:05
[2016-05-03 20:00] VITALS: BP 154/71; PULSE 71; RESP 21; TEMP 96.2; O2SAT 99
[2016-05-03] MEDS: SERTRALINE HCL 100 MG TAB PO SCH (20:35)
[2016-05-03] MEDS: ESTRADIOL 1 MG TAB PO SCH (20:35)
[2016-05-04] VITALS (7 sets, daily range): BP systolic 122–178; BP diastolic 63–96; PULSE 65–89; RESP 16–20; TEMP 97.3–98.8; O2SAT 94–99
[2016-05-04] MEDS: SODIUM CHLOR 0.9% 1000 ML INJ 1,000 ML IV SCH ×2 (05:20→13:21)
[2016-05-04] MEDS: LEVOTHYROXINE SODIUM 125 MCG TAB PO SCH (05:20)
[2016-05-04] MEDS: SODIUM CHLORIDE 0.9% FLUSH 5 ML FLUSH FLUSH SCH (08:59)
[2016-05-04] MEDS: CALCITRIOL 0.25 MCG CAP PO SCH (08:59)
[2016-05-04] MEDS: CHOLECALCIFEROL (VIT D3) 5000 UNIT CAP PO SCH (08:59)
[2016-05-04] MEDS ORDERED: fentaNYL CITRATE 250 MCG/5 ML AMP ONE (10:12)
[2016-05-04] MEDS ORDERED: ceFAZolin 2 GM PREMIX 50 ML ONE (10:12)
[2016-05-04] MEDS ORDERED: MIDAZOLAM HCL 5 MG/5 ML VIAL ONE (10:12)
--- NOTE | 2016-05-04 11:12 | PD.RAD ---
Post Procedure Progress Note Pre Procedure Diagnosis: (1) Acute renal failure Post Procedure Diagnosis: (1) Acute on chronic kidney disease, stage 3 Procedure Date: May 04, 2016 Supervising Radiologist: Pro Perez Proceduralist/Assist: Kimmie Xiao, RT(R)(CV), Isabelle Dan RT(R) Anesthesia: Conscious Sedation Plan of Activity Patient to Unit: Nursing Unit Patient Condition: Good See PACS Report for procedural detail/treatment Drainage Procedure Procedure 1 Side: Right Procedure Type: Nephrostomy Procedure: Placement Fluid Description: Pro Tejeda MD May 04, 2016 11:12
[2016-05-04] MEDS ORDERED: IOHEXOL 350 MG/ML 50 ML BTL (for RAD DIAG) ONE (11:16)
[2016-05-04] MEDS: MORPHINE SULFATE 4 MG/ML INJ IV PRN (13:15)
--- NOTE | 2016-05-04 16:23 | HHI.PR ---
Subjective Remarks had perc nephro tube placed anxious to go home no pain, no abd pain no n/v no fever draining well from drain Objective Objective Results - Vital Signs Date Time Temp Pulse Resp B/P Pulse Ox O2 Delivery O2 Flow Rate FiO2 05/04/16 16:00 98.8 89 19 178/81 99 05/04/16 13:20 17 05/04/16 12:25 70 18 160/78 97 05/04/16 12:00 77 16 168/88 98 05/04/16 12:00 97.3 78 18 176/90 97 05/04/16 11:30 65 16 122/63 95 05/04/16 11:15 98.4 82 18 163/96 94 05/04/16 08:00 97.8 68 17 128/69 96 05/04/16 00:00 98.7 76 20 166/89 96 05/03/16 20:00 96.2 71 21 154/71 99 I/O 05/03/16 05/03/16 05/03/16 05/04/16 05/04/16 05/04/16 07:00 15:00 23:00 07:00 15:00 23:00 Intake Total 556 ml 815 ml 885 ml 1214 ml 863 ml Output Total 700 ml 800 ml 566 ml Balance -144 ml 15 ml 885 ml 1214 ml 297 ml Intake Oral 0 ml 570 ml 120 ml 120 ml 300 ml IV Total 556 ml 245 ml 765 ml 1094 ml 563 ml Output Urine Total 700 ml 800 ml Drainage Total 566 ml # Voids 2 2 1 # Bowel Movements 0 1 0 0 Result Diagram: 05/03/16 0620 05/03/16 0620 Imaging Last Impressions Abdomen/Pelvis CT 05/02/16 0000 Signed Impressions: Service Date/Time: Monday, May 02, 2016 03:26 - CONCLUSION: Prominent bilateral hydronephrosis. Mild nonspecific distention of small bowel are and small volume of free peritoneal fluid. Small lower abdominal incisional hernia defect containing a knuckle of small bowel. Joseluis Sandoval MD Other Results Date/Time Procedure Status Source Growth 05/02/16 04:57 Urine Culture - Final Complete Urine Clean Catch 50-100,000 CFU/ML MIXED GRAM POSITIVE... ROS General: No: Fatigue, Weakness HEENT: No: Sore Throat, Dysphagia Cardiac: No: Chest Pain, Edema, Palpitations Pulmonary: No: Cough, SOB, Wheezing GI: No: Abdominal Pain, BM, Diarrhea, N/V /VEHICLE DAMAGE APPRAISER: No: Dysuria, Urgency Neuro/MS: No: Lightheaded, Confusion Psych: No: Anxiety, Depression Skin: No: Itching, Rash Physical Exam Physical Exam GENERAL: This is a well-nourished, well-developed patient, in no apparent distress. SKIN: No rashes, ecchymoses or lesions. Cool and dry. HEAD: Atraumatic. Normocephalic. No temporal or scalp tenderness. EYES: Pupils equal round and reactive. Extraocular motions intact. No scleral icterus. No injection or drainage. ENT: Nose without bleeding, purulent drainage or septal hematoma. Throat without erythema, tonsillar hypertrophy or exudate. Uvula midline. Airway patent. NECK: Trachea midline. No JVD or lymphadenopathy. Supple, nontender, no meningeal signs. CARDIOVASCULAR: Regular rate and rhythm without murmurs, gallops, or rubs. Port noted to right chest wall. RESPIRATORY: Clear to auscultation. Breath sounds equal bilaterally. No wheezes , rales, or rhonchi. GASTROINTESTINAL: Abdomen soft, mildly tender to mid abdomen. Small hernia noted mid abdomen, soft. She has a colostomy to the left lower abdomen with small amount of soft, mushy stool. : Right ext. nephro tube with tam urine, draining well MUSCULOSKELETAL: Extremities without clubbing, cyanosis, or edema. No joint tenderness, effusion, or edema noted. No calf tenderness. Negative Homans sign bilaterally. NEUROLOGICAL: Awake and alert. Cranial nerves II through XII intact. Motor and sensory grossly within normal limits. Five out of 5 muscle strength in all muscle groups. Normal speech. Urinary Catheter: No Vascular Central Line Catheter: No A/P Diagnosis: (1) SBO (small bowel obstruction) (2) Hydronephrosis (3) Incisional hernia (4) UTI (urinary tract infection) (5) Acute renal failure (6) Chronic bilateral ureteral strictures (7) CKD (chronic kidney disease) (8) History of colorectal cancer (9) Nephrostomy tubes, chronic Plan: only has one left now in the right (10) Chronic pain Assessment and Plan 70-year-old female with history of multiple bowel surgeries secondary to colon cancer, with colostomy reversal and ileostomy. 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 She had subsequent complications secondary to surgery. 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 Has an indwelling right nephrostomy tube in place. Presented to the emergency room with complaint of abdominal pain nausea vomiting decreased ostomy output. CT findings of small bowel obstruction with a small lower abdominal incisional hernia defect. -Consult colorectal surgeon, Dr. Douglas. Conservative tx -Adv regular diet -Continue with IV fluid -Monitor ostomy output -Pain management Hydronephrosis secondary to chronic bilateral ureteral stricture secondary to radiation. Has indwelling right nephrostomy tube in place. Noted were worsening kidney function. -S/P placement of right nephro tube per IR 05/04, tolerated well Acute on chronic kidney disease, patient is usually stage III -IVF -renal function same Avoid nephrotoxic agents Recurrent UTI -states she follows up with ID as OP, urine is chronically dirty, but she's asymptomatic, no fever, no chills Continue with antibiotics -Follow urine culture-mixed GPC Chronic pain -Continue home medications, patient on fentanyl patch SCDs/Heparin for DVT prophylaxis will see how she tolerates diet, if she does well-discharge today F/U Dr Manning, Oncology, PCP Diet-as tolerated Activity-as tolerated D/W RN D/W pt D/W Dr. Adame This patient was seen by myself and Dr. Adame, this note is written on her behalf Problem Qualifiers (1) Hydronephrosis: Qualified Code: N13.30 - Hydronephrosis, unspecified hydronephrosis type (2) Incisional hernia: Qualified Code: K43.2 - Incisional hernia, without obstruction or gangrene (3) UTI (urinary tract infection): Qualified Code: N39.0 - Urinary tract infection without hematuria, site unspecified (4) Acute renal failure: Qualified Code: N17.9 - Acute renal failure, unspecified acute renal failure type (5) CKD (chronic kidney disease): Qualified Code: N18.3 - CKD (chronic kidney disease), stage 3 (moderate) (6) Chronic pain: Qualified Code: G89.4 - Chronic pain syndrome Briseida Don 7, 2017 16:23
[2016-05-04] MEDS ORDERED: cloNIDine HCL 0.1 MG TAB PO PRN (16:30)
--- NOTE | 2016-05-04 18:02 | HHI.PR ---
Subjective Remarks C/R Surg afebrile, VSS UO good - percut tube placed stoma better output Objective - Vital Signs Date Time Temp Pulse Resp B/P Pulse Ox O2 Delivery O2 Flow Rate FiO2 05/04/16 16:00 98.8 89 19 178/81 99 05/02/16 03:46 Room Air Result Diagram: 05/03/16 0620 05/03/16 0620 Objective Remarks PE alert Abd - soft, no tympany, non-tender, hernia reduced A/P Assessment and Plan Imp: incr PO OOB renal stent/percut tube placed dc later today Daniel Douglas MD May 04, 2016 18:02
--- NOTE | 2016-05-05 14:09 | RADRPT ---
EXAM DATE/TIME: 05/04/2016 10:25 [facility] COMPARISON: NEPHROSTOMY, RIGHT, August 07, 2014, 15:04. INDICATIONS : Patient complains of abdominal pain,nausea and vomiting. MEDICAL HISTORY : 1.Bladder carcinoma, 2. Colon cancer 3. Thyroid cancer 4. Renal cancer SURGICAL HISTORY : 1. Thro;idectomy 2. Appendectomy 3. Hysterectomy 4. Ileostomy 5. Nephrostomy tubes ENCOUNTER: Subsequent ACUITY: >1 year PAIN SCORE: 3/10 LOCATION: Right lower quadrant FLUORO TIME: 4.8 minutes IMAGE SERIES: 1 SEDATION TIME: 30 minutes CONTRAST: 40 cc Omnipaque (iohexol) 350 MEDICATION(S): 1.) 5 mg midazolam (Versed) IV 2.) 250 mcg fentanyl (Sublimaze) IV Prophylactic antibiotics were administered with appropriate pre-procedure timing. DEVICE(S): 1.) 8 Nepali nephrostomy catheter PROCEDURE : 1. Ultrasound-guided puncture of the kidney. 2. Antegrade percutaneous pyelogram. 3. Percutaneous nephrostomy placement. 4. Conscious sedation with continuous EKG and oximetry monitoring. The risks, benefits and alternatives to the procedure were explained and verbal and written consent w as obtained. The site was prepped in sterile fashion. Full sterile technique was used, including ca p, mask, sterile gloves and gown and a large sterile sheet. Hand hygiene and 2% chlorhexidine and/or betadine/alcohol prep was utilized per protocol for cutaneous antisepsis. The skin and subcutaneous tissues were infiltrated with local anesthetic solution. With ultrasound and fluoroscopic guidance the selected kidney was punctured and a percutaneous antegr jan pyelogram was performed demonstrating a dilated collecting system. Serial dilatation was perform ed and a prescribed nephrostomy tube was placed within the renal pelvis and sutured in place. Images demonstrate good position of the catheter with a internal stent in place extending from the ut eropelvic junction to the bladder. Conscious sedation was performed with the prescribed dosages and duration as above in the presence of an independent trained radiology nurse to assist in the monitoring of the patient. EKG and oximetry remained stable throughout the procedure. The patient tolerated the procedure well and there were n o complications. The patient was sent to post anesthesia recovery in stable condition. CONCLUSION: Uncomplicated nephrostomy tube placement as above. Pro Perez MD on May 05, 2016 at 14:07 Board Certified Radiologist. This report was verified electronically.
[2016-05-05] MEDS ORDERED: REMOVE OLD DURAGESIC (FENTANYL) PATCH TD SCH (17:00)
--- NOTE | 2016-06-01 22:26 | HHI.DS ---
Discharge Summary Admission Date May 02, 2016 at 05:04 Discharge Date: May 04, 2016 Admitting Diagnosis renal failure, hydronephrosis (1) SBO (small bowel obstruction) (2) Hydronephrosis (3) Incisional hernia (4) UTI (urinary tract infection) (5) Acute renal failure (6) Chronic bilateral ureteral strictures (7) CKD (chronic kidney disease) (8) History of colorectal cancer (9) Nephrostomy tubes, chronic (10) Chronic pain Imaging Last Impressions Nephrostomy 05/04/16 0000 Signed Impressions: Service Date/Time: Wednesday, May 04, 2016 10:25 - CONCLUSION: Uncomplicated nephrostomy tube placement as above. Pro Perez MD Abdomen/Pelvis CT 05/02/16 0000 Signed Impressions: Service Date/Time: Monday, May 02, 2016 03:26 - CONCLUSION: Prominent bilateral hydronephrosis. Mild nonspecific distention of small bowel are and small volume of free peritoneal fluid. Small lower abdominal incisional hernia defect containing a knuckle of small bowel. Joseluis Sandoval MD Hospital Course This is a 70 year old female known to the undersigned from previous admission with history significant for colorectal cancer with colostomy reversal and ileostomy, she's had recurrence of cancer and had a second resection combined radiation chemotherapy. She had subsequent complications secondary to surgery. On July 11, 2014 she underwent exploratory lap with lysis of adhesions resection ileostomy and ileocolostomy per Dr. Douglas. Prior to that she had an ileostomy revision on June 19, 2014. She's has continued to have problems with her ostomy, and dehydration. She goes for weekly hydration therapy at Dr. Swanson's office her oncologist at [facility]. 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 She's had indwelling stents to the right kidney, which she had replaced on February 10, 2016 per . According to the patient this was a catheter that is better for long-term. Renal function has been monitored very closely. According to the patient, she had been in to see her urologist this past Tuesday as her creatinine had been increasing and she was concerned that her stent needed to be revised. She was actually scheduled to have procedure done in interventional radiology and the plan was to externalize stent to monitor output. Yesterday she started to have subjective fever, no chills. A few days ago she started to have sharp mid abdominal pain that worsened yesterday associated with nausea and vomiting. Indicates vomitus was foamy, no blood. She's had very little intake. Her ostomy output decreased. She has noted decrease in urine output as well. She presented to the hospital for evaluation. In the emergency room, she had laboratory workup completed. CBC was unremarkable other than chronic anemia. No WBC elevation. She was noted with the line of 31, creatinine of 2.87 and GFR of 16. Which appears worse than in previous admissions. Urinalysis was positive for leukocyte esterase and WBC. Blood pressure was noted initially in the 200s which has now stabilized. She had an abdomen and pelvis CT that show prominent bilateral hydronephrosis, mild nonspecific distention small bowel and small volume of free peritoneal fluid. Small lower abdominal incisional hernia defect containing a knuckle of small bowel. Urologist Dr. Manning was called from the emergency room and requested the patient be admitted for IV antibiotics and to consult interventional radiology for percutaneous drain of the right ureter later today. Patient was evaluated, complained of mid abdominal discomfort that had improved. She was no longer having any nausea or vomiting. She had been evaluated by Dr. Vergara who was covering for Dr. Douglas. Patient was admitted for further evaluation and treatment for: (1) SBO (small bowel obstruction) (2) Hydronephrosis (3) Incisional hernia (4) UTI (urinary tract infection) (5) Acute renal failure (6) Chronic bilateral ureteral strictures (7) CKD (chronic kidney disease) (8) History of colorectal cancer (9) Nephrostomy tubes, chronic Plan: only has one left now in the right (10) Chronic pain During the course of the hospitalization, the following took place: 70-year-old female with history of multiple bowel surgeries secondary to colon cancer, with colostomy reversal and ileostomy. 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 She had subsequent complications secondary to surgery. 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 Has an indwelling right nephrostomy tube in place. Presented to the emergency room with complaint of abdominal pain nausea vomiting decreased ostomy output. CT findings of small bowel obstruction with a small lower abdominal incisional hernia defect. -Consulted colorectal surgeon, Dr. Douglas. Conservative tx recommended -Adv regular diet, tolerated -put on IV fluid -Monitored ostomy output -Pain management ordered. Hydronephrosis secondary to chronic bilateral ureteral stricture secondary to radiation. Has indwelling right nephrostomy tube in place. Noted with worsening kidney function. -S/P placement of right nephro tube per IR 05/04, tolerated well -Renal functioned monitored Acute on chronic kidney disease, patient is usually stage III -IVF given -renal function same Avoided nephrotoxic agents Recurrent UTI -stated she follows up with ID as OP, urine is chronically dirty, but she's asymptomatic, no fever, no chills Continued with antibiotics -Followed urine culture-mixed GPC Chronic pain -Continued home medications, patient on fentanyl patch SCDs/Heparin for DVT prophylaxis after procedure, she did well. Tolerated diet. cleared for discharge Instructed to: F/U Dr Manning, Oncology, PCP Diet-as tolerated Activity-as tolerated Pt Condition on Discharge: Stable Discharge Disposition: Discharge Home Discharge Instructions DIET: Follow Instructions for: As Tolerated, No Restrictions Activities you can perform: Weight Bearing as Patrica Follow up Referrals: Urology - 3 Weeks with Butch Kitchen MD Continued Medications: Calcitriol (Calcitriol) 0.25 Mcg Cap 0.25 MCG PO DAILY Calcium Supplement #30 Ref 0 CAP Cholecalciferol (Vitamin D) 1,000 Unit Tab 5000 UNITS PO DAILY Nutritional Supplement #1 Ref 0 BOTTLE Cyanocobalamin Inj (Cyanocobalamin Inj) 1,000 Mcg/Ml Inj 1000 MCG IM Q30D #1 Ref 0 VIAL Estradiol (Estradiol) 1 Mg Tab 1 MG PO HS Estrogen Supplements #30 Ref 0 TAB Fentanyl Patch 72 HR (Fentanyl Patch 72 HR) 100 Mcg/Hr Patch 100 MCG T-DERMAL Q72H Remove old patch when new one placed. Pain Management #10 Ref 0 PATCH Fentanyl Patch 72 HR (Fentanyl Patch 72 HR) 25 Mcg/Hr Patch 25 MCG T-DERMAL Q72H Pain Management #10 Ref 0 PATCH Hydrocodone-Acetaminophen (Towaco) 5-325 mg Tab 1 TAB PO Q4H PRN PAIN Ref 0 TAB Levothyroxine (Levothyroxine) 125 Mcg Tab 125 MCG PO DAILY Thyroid #30 Ref 0 TAB Sertraline (Sertraline) 100 Mg Tab 100 MG PO HS #30 Ref 0 TAB Briseida Don [facility] Jun 01, 2016 22:26
== END 2016-05-04 17:37 | disposition home or self-care (01) | DRG 660 ==
LOC: NEPE 00:48 → NEDA 05:04 → N07A 06:29
PROVIDERS: ADMIT Specialist; ATTEND Specialist
PROC: 0T133JD Bypass Right Kidney Pelvis to Cutaneous with Synthetic Substitute, Percutaneous Approach (ICD-10-PCS; principal; 2016-05-04)
DX: N13.39 Other hydronephrosis (principal); K43.0 Incisional hernia with obstruction, without gangrene; N17.9 Acute kidney failure, unspecified; N39.0 Urinary tract infection, site not specified; N13.5 Crossing vessel and stricture of ureter without hydronephrosis; Z93.6 Other artificial openings of urinary tract status; Y63.3 Inadvertent exposure of patient to radiation during medical care; M10.9 Gout, unspecified; Z93.2 Ileostomy status; N18.3 Chronic kidney disease, stage 3 (moderate); G89.29 Other chronic pain
CPT/HCPCS: 50432; 74176; 80048; 80053; 81001; 83690; 85025; 85610; 85730; 87086; 96361; 96374; 96375; 99152; 99153; C1729; C1769; C1894; J0690; J0696; J1642; J1644; J2250; J2270; J2405; J3010; J7030; Q9963; Q9967

== ENCOUNTER 2016-05-06 09:13 | Day surgery (SDC) | payer MEDICARE, BC ==
[~2016-05-06] VITALS: Ht 157.5 cm; Wt 67.3 kg
[~2016-05-06 09:13] MED LIST changes: -ALUM5LIQ PO; +CALC0.25 PO; -CHOL50006 PO; +FENT100D T-DERMAL; -FENT100D TD; +FENT25DI T-DERMAL; -FENT25DI TD; +LEVO125T4 PO; -LEVO137T2 PO; -LORTA5 PO; +NORC5TAB PO; +VITA100064 PO
[2016-05-06 09:37] VITALS: BP 133/71; PULSE 63; RESP 20; TEMP 98.5; O2SAT 99
[2016-05-06] MEDS ORDERED: Infusaport/Implanted VAD PRN NS Lock Flush IVF (10:30)
[2016-05-06] MEDS ORDERED: SODIUM CHLORIDE 0.9% 1000 ML IV SCH (10:30)
[2016-05-06] MEDS ORDERED: ONDANSETRON HCL 4 MG/2 ML VIAL ONE (11:24)
[2016-05-06] MEDS ORDERED: fentaNYL CITRATE 250 MCG/5 ML AMP ONE (11:24)
[2016-05-06] MEDS ORDERED: MIDAZOLAM HCL 5 MG/5 ML VIAL ONE (11:24)
[2016-05-06] MEDS ORDERED: MIDAZOLAM HCL 2 MG/2 ML VIAL ONE (12:38)
[2016-05-06] MEDS ORDERED: IOHEXOL 350 MG/ML 50 ML BTL (for RAD DIAG) ONE (13:16)
[2016-05-06 13:22] VITALS: BP 180/78; PULSE 52; RESP 18; TEMP 97.5; O2SAT 98
--- NOTE | 2016-05-06 13:24 | PD.RAD ---
Post Procedure Progress Note Pre Procedure Diagnosis: (1) Hydronephrosis Post Procedure Diagnosis: (1) Hydronephrosis Procedure Date: May 06, 2016 Supervising Radiologist: Pro Perez Proceduralist/Assist: Wero Jack RT(R), RT [place](R)() Anesthesia: Conscious Sedation Plan of Activity Patient to Unit: Nursing Unit Patient Condition: Good See PACS Report for procedural detail/treatment Pro Perez MD May 06, 2016 13:24
[2016-05-06 13:37] VITALS: BP 172/80; PULSE 59; RESP 19; O2SAT 97
[2016-05-06 14:07] VITALS: BP 123/74; PULSE 59; RESP 18; O2SAT 99
[2016-05-06 14:37] VITALS: BP 127/79; PULSE 62; RESP 19; O2SAT 99
--- NOTE | 2016-05-06 17:50 | RADRPT ---
EXAM DATE/TIME: 05/06/2016 11:36 [facility] COMPARISON: NEPHROSTOMY, RIGHT, May 04, 2016, 10:25. INDICATIONS : Patient is in need of placement of a right sided neprhostomy tube due to patient pulling it out accid entally. MEDICAL HISTORY : 1.Bladder carcinoma, 2. Colon cancer 3. Thyroid cancer 4. Renal cancer SURGICAL HISTORY : 1. Thyroidectomy 2. Appendectomy 3. Hysterectomy 4. Ileostomy 5. Nephrostomy tubes ENCOUNTER: Subsequent ACUITY: >1 year PAIN SCORE: 4/10 LOCATION: Right lower quadrant FLUORO TIME: 13.2 minutes IMAGE SERIES: 2 SEDATION TIME: 75 minutes CONTRAST: 20 cc Omnipaque (iohexol) 350 MEDICATION(S): 1.) 7 mg midazolam (Versed) IV 2.) 350 mcg fentanyl (Sublimaze) IV 3.) 4 mg ondansetron (Zofran) IV DEVICE(S): 1.) 8 Thai 25cm nephrostomy catheter Flexima PROCEDURE : 1. Ultrasound-guided puncture of the kidney. 2. Antegrade percutaneous pyelogram. 3. Percutaneous nephrostomy placement. 4. Conscious sedation with continuous EKG and oximetry monitoring. The risks, benefits and alternatives to the procedure were explained and verbal and written consent w as obtained. The site was prepped in sterile fashion. Full sterile technique was used, including ca p, mask, sterile gloves and gown and a large sterile sheet. Hand hygiene and 2% chlorhexidine and/or betadine/alcohol prep was utilized per protocol for cutaneous antisepsis. The skin and subcutaneous tissues were infiltrated with local anesthetic solution. With ultrasound and fluoroscopic guidance the selected kidney was punctured and a percutaneous antegr jan pyelogram was performed demonstrating a dilated collecting system. Serial dilatation was perform ed and a prescribed nephrostomy tube was placed within the renal pelvis and sutured in place. Injection of contrast demonstrates good position of the catheter within the renal pelvis. The uretera l stent remains in place Conscious sedation was performed with the prescribed dosages and duration as above in the presence of an independent trained radiology nurse to assist in the monitoring of the patient. EKG and oximetry remained stable throughout the procedure. The patient tolerated the procedure well and there were n o complications. The patient was sent to post anesthesia recovery in stable condition. CONCLUSION: Uncomplicated nephrostomy tube placement as above. Pro Perez MD on May 06, 2016 at 17:48 Board Certified Radiologist. This report was verified electronically.
== END 2016-05-06 15:15 | disposition home or self-care (01) ==
LOC: HROP 09:13 → HRIP 09:14 → HROP 15:15
PROVIDERS: ATTEND Urology
DX: Z46.82 Encounter for fitting and adjustment of non-vascular catheter (principal); N13.30 Unspecified hydronephrosis; Z85.51 Personal history of malignant neoplasm of bladder; Z85.528 Personal history of other malignant neoplasm of kidney; Z85.038 Personal history of other malignant neoplasm of large intestine; Z85.850 Personal history of malignant neoplasm of thyroid
CPT/HCPCS: 50432; 99152; 99153; C1729; C1769; C1894; J2250; J2405; J3010; J7030; Q9967

== ENCOUNTER 2016-06-01 08:32 | Day surgery (SDC) | payer MEDICARE, BC ==
[~2016-06-01] VITALS: Ht 154.9 cm; Wt 67.7 kg
[2016-06-01 08:44] VITALS: BP 139/92; PULSE 77; RESP 20; TEMP 98; O2SAT 96
[2016-06-01] MEDS ORDERED: SODIUM CHLORIDE 0.9% 1000 ML IV SCH (10:00)
[2016-06-01] MEDS ORDERED: LEVOFLOXACIN 500 MG PREMIX 100 ML - nephrostomy tube insertion or exchange IV SCH (10:00)
[2016-06-01] MEDS ORDERED: LEVOFLOXACIN 500 MG TAB PO ONE (10:15)
[2016-06-01 11:10] VITALS: BP 150/93; PULSE 81; RESP 18; TEMP 98.6; O2SAT 98
[2016-06-01] MEDS ORDERED: IOHEXOL 350 MG/ML 50 ML BTL (for RAD DIAG) ONE (11:19)
--- NOTE | 2016-06-01 12:40 | PD.RAD ---
Post Procedure Progress Note Pre Procedure Diagnosis: (1) Nephrostomy tubes, chronic Post Procedure Diagnosis: (1) Nephrostomy tubes, chronic Procedure Date: Jun 01, 2016 Supervising Radiologist: Usama Lopez Proceduralist/Assist: Isabelle Dan, RT(R), Betsey Johnson RT(R)() Plan of Activity Patient to Unit: [facility] Patient Condition: Good See PACS Report for procedural detail/treatment Drainage Procedure Procedure 1 Imaging Guidance: Fluoroscopy Side: Right Procedure Type: Nephrostomy Procedure: Removal, Evaluation Yoruba: 8 Findings: Nephrostomy in good position. No appreciable drainage through double-j stent into bladder. Pt states right kidney poorly functioning and there has been no output from nephrostomy over past few weeks. Patient wanted tube removed. Plan Patient will call if symptoms of obstruction or infection return. Usama Lopez MD Jun 01, 2016 12:40
--- NOTE | 2016-06-02 10:31 | RADRPT ---
EXAM DATE/TIME: 06/01/2016 09:41 [facility] COMPARISON: NEPHROSTOMY TUBE REMOVAL, W/FLUORO, RIGHT, October 15, 2015, 9:49. INDICATIONS : Patient is in need of evlauation and removal of existing right nephrostomy tube. MEDICAL HISTORY : History of colorectal cancer, bladder cancer, thyroid cancer, bilateral ureteral strictures, gout, ta chycardia, bowel obstruction, hypothyroidism. SURGICAL HISTORY : History of colostomy, ileostomy, thyroidectomy, hysterectomy, appendectomy, port placement, bilateral nephrostomy tubes, right ureteral stent. ENCOUNTER: Subsequent ACUITY: >1 year PAIN SCORE: 0/10 FLUORO TIME: 3.6 minutes IMAGE SERIES: 4 CONTRAST: 10 cc Omnipaque (iohexol) 350 PROCEDURE : 1. Antegrade pyelogram. 2. Nephrostomy tube removal. The risks, benefits and alternatives to the procedure were explained and verbal and written consent w as obtained. The site was prepped in sterile fashion. Full sterile technique was used, including ca p, mask, sterile gloves and gown and a large sterile sheet. Hand hygiene and 2% chlorhexidine and/or betadine/alcohol prep was utilized per protocol for cutaneous antisepsis. The skin and subcutaneous tissues were infiltrated with local anesthetic solution. With fluoroscopic guidance, the existing nephrostomy catheter was injected. Contrast injection shows the collecting system to be mildly dilated with a double J stent bridging the right ureter. I did no t see a significant amount of contrast traversing the stent into the bladder. Patient insisted that w e perform the evaluation without anesthetic or sedation and therefore, she was a completely awake for the procedure. I explained to Ms. Lopez that the double J stent appears to be poorly or nonfunctioning however, she insisted that the p ercutaneous access be removed as she has left this drainage catheter capped over the last week and sanchez s been asymptomatic. She claims that the function of the right kidney is extremely limited and she no longer wants the tube. Per the patient's request, the tube was removed after the collecting system w as aspirated dry. She was instructed to call the interventional department or her urologist if she ex periences increasing right flank pain or temperature. There were no complications and the patient was sent to post anesthesia recovery in stable condition. CONCLUSION: Uncomplicated nephrostomy tube removal as above. Usama Lopez MD on June 02, 2016 at 10:24 Board Certified Radiologist. This report was verified electronically.
== END 2016-06-01 11:20 | disposition home or self-care (01) ==
LOC: HROP 08:32 → HRIP 08:35 → HROP 11:20
PROVIDERS: ATTEND Urology
DX: Z43.6 Encounter for attention to other artificial openings of urinary tract (principal); N13.8 Other obstructive and reflux uropathy; M10.9 Gout, unspecified; E03.9 Hypothyroidism, unspecified; Z85.51 Personal history of malignant neoplasm of bladder; Z85.038 Personal history of other malignant neoplasm of large intestine; Z85.850 Personal history of malignant neoplasm of thyroid
CPT/HCPCS: 50389; 50431; Q9967

== ENCOUNTER 2016-08-26 07:50 | Emergency (ER) | payer MEDICARE, BC ==
[~2016-08-26] VITALS: Ht 157.5 cm; Wt 70.0 kg
[2016-08-26 07:52] VITALS: BP 177/99; PULSE 91; RESP 22; TEMP 98.9; O2SAT 99
[2016-08-26] MEDS ORDERED: RANITIDINE HCL SYRUP 150 MG/10 ML UDC PO ONE (08:15)
[2016-08-26] MEDS ORDERED: methylPREDNISolone SOD SUCC 125 MG/2 ML VIAL IM ONE (08:15)
--- NOTE | 2016-08-26 08:18 | PD ---
HPI Chief Complaint: Allergic/Adverse Reaction Time Seen by Provider: 08:18 Travel History International Travel<30 days: No Contact w/Intl Traveler<30days: No Traveled to known affect area: No History of Present Illness HPI 70-year-old female presents to the emergency department complaining of redness and burning sensation to bilateral eyelids, nares, and tingling sensation to the tip of her tongue after trimming a Euphorbia milii plant last night. She does not recall touching her face and only can relate the onset of symptoms to the plant. Denies swelling of the tongue. Denies airway edema, irritation, wheezing, stridor, shortness of breath, cough. Reports clear drainage from bilateral eyes. Denies change in vision. Reports runny nose. Denies fever, vomiting. Has not taken any medications to alleviate her symptoms. Has tried washing her face with soap and water and apply Neosporin with no relief of symptoms. History of chronic kidney disease. No known allergies. Has no other medical complaints. No other modifying factors or associated signs and symptoms. 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)) Cardiovascular Problems: Yes (HX OF TACHYCARDIA) Chemotherapy: Yes (last chemo -/GETS HYDRATION THERAPY) Chest Pain: No Congestive Heart Failure: No COPD: No Cerebrovascular Accident: No Diabetes: No Diminished Hearing: No Endocrine: Yes Gastrointestinal Disorders: Yes (HX OF COLON CA, ILEOSTOMY/ DEHYDRATION, CHRONIC IRRITATION ILEOSTOMY SITE) GERD: No Genitourinary: Yes (HX BLADDER CANCER/"KIDNEY FUNCTION ABOUT 25% NORMAL", HOA NEPHROSTOMY TUBES) Headaches: No Hepatitis: No Hiatal Hernia: No Heparin Induced Thrombocytopen: No Hypertension: No Immune Disorder: No Implanted Vascular Access Dvce: Yes (RIGHT SIDED POWER PORT) Kidney Stones: No Musculoskeletal: Yes (C5-6 HNP, ARTHRITIS) Neurologic: No Psychiatric: No (HX OF DEPRESSION, ANXIETY) Reproductive: No Respiratory: No Immunizations Current: Yes Migraines: No Radiation Therapy: Yes () Renal Failure: Yes (HX OF DIALYSIS PRIOR TO NEPHROSTOMY TUBES ) Seizures: No Sickle Cell Disease: No Sleep Apnea: No Thyroid Disease: Yes (HX OF THYROID CA,TOTAL THYROIDECTOMY 2003) Ulcer: No Menopausal: Yes : 0 Para: 0 Miscarriage: 0 : 0 Past Surgical History Abdominal Surgery: Yes (COLON CA SX/COLOSTOMY 1994,BOWEL OBSTRUCTION ", SACRAL MASS ', CHEMO/RAD) AICD: No Appendectomy: Yes Arteriovenous Shunt: No Body Medical Devices: NEPHROSTOMY TUBES, POWER PORT Cardiac Surgery: No Ear Surgery: No Endocrine Surgery: Yes (THYROIDECTOMY 2003, IMPLANTED PARATHYROID IN L UPPER ARM) Eye Surgery: No Genitourinary Surgery: Yes (URETER STENTS -->NEPHROSTOMY TUBES 2010) Gynecologic Surgery: Yes (HYSTERECTOMY) Hysterectomy: Yes Insulin Pump: No Joint Replacement: No Neurologic Surgery: No Oral Surgery: No Pacemaker: No Thoracic Surgery: No Other Surgery: Yes (SKIN CANCER REMOVAL, RIGHT SIDE PORT) Social History Alcohol Use: Yes (SOCIALLY) Tobacco Use: No Substance Use: No Allergies-Medications (Allergen,Severity, Reaction): Coded Allergies: No Known Allergies (Unverified , 08/26/16) Reported Meds & Prescriptions Reported Meds & Active Scripts Active Zantac (Ranitidine HCl) 150 Mg Tab 150 Mg PO DAILY 5 Days Deltasone (Prednisone) 20 Mg Tab 40 Mg PO DAILY 5 Days start 08/27/2016 Reported Sertraline (Sertraline HCl) 100 Mg Tab 100 Mg PO HS Levothyroxine (Levothyroxine Sodium) 125 Mcg Tab 125 Mcg PO DAILY [place] (Hydrocodone-Acetaminophen) 5-325 mg Tab 1 Tab PO Q4H PRN Estradiol 1 Mg Tab 1 Mg PO HS Cyanocobalamin Inj (Cyanocobalamin) 1,000 Mcg/Ml Inj 1,000 Mcg IM WEEKLY Calcitriol 0.25 Mcg Cap 0.25 Mcg PO DAILY Vitamin D (Cholecalciferol) 1,000 Unit Tab 5,000 Units PO DAILY Fentanyl Patch 72 HR (Fentanyl) 25 Mcg/Hr Patch 25 Mcg T-DERMAL Q72H Fentanyl Patch 72 HR (Fentanyl) 100 Mcg/Hr Patch 100 Mcg T-DERMAL Q72H Remove old patch when new one placed. Review of Systems Except as stated in HPI: all other systems reviewed are Neg Physical Exam Narrative GENERAL: Well-nourished, well-developed female patient, in no acute distress; afebrile, nontoxic-appearing SKIN: Warm and dry. Mild erythema noted to bilateral upper eyelids, bilateral nares. HEAD: Atraumatic. Normocephalic. EYES: Pupils equal and round at 3 mm with brisk reaction. PERRLA. EOMI. bilateral eye without scleral erythema; with bilateral upper mild lid edema and mild erythema. No orbital tenderness, erythema or cellulitis. Bilateral eye without photophobia. No consensual photophobia. No scleral icterus. Clear drainage. Right eye PH 7. Left eye PH 8; pH 7 after normal saline irrigation ENT: Mucosa pink and moist. No erythema or exudates. No uvular edema. No uvular , palatal, or tonsillar deviation. Airway patent. Nasal turbinates appear normal without nasal blood, purulent drainage or septal hematoma. MOUTH: Mucous membranes moist, no lesions, tongue and gums appear normal. Tongue does not appear swollen. NECK: Trachea midline. No lymphadenopathy. CARDIOVASCULAR: Regular rate and rhythm without murmur. RESPIRATORY: No accessory muscle use. Breath sounds clear and equal bilaterally. No wheezing. No retractions or tachypnea. GASTROINTESTINAL: Abdomen soft, non-tender, nondistended. Positive bowel sounds. No hepato-splenomegaly, or palpable masses. No guarding. NEUROLOGICAL: Awake and alert. Oriented 3. No obvious cranial nerve deficits. Motor grossly within normal limits. Normal speech. PSYCHIATRIC: Appropriate mood and affect; insight and judgment normal. Data Data Last Documented VS Vital Signs Date Time Temp Pulse Resp B/P Pulse Ox O2 Delivery O2 Flow Rate FiO2 08/26/16 07:52 98.9 91 22 177/99 99 Room Air Orders Methylprednisolone So Succ Inj (Solumedr (08/26/16 08:15) Ranitidine Liq (Zantac Liq) (08/26/16 08:15) Call Poison Control (08/26/16 08:35) Acetaminophen (Tylenol) (08/26/16 09:00) MDM Medical Decision Making Medical Screen Exam Complete: Yes Emergency Medical Condition: Yes Medical Record Reviewed: Yes Differential Diagnosis Allergic reaction, contact dermatitis, allergic rhinitis Narrative Course 70-year-old female with allergic reaction, with inspection to allergic reaction to Euphorbia Milii. Without retractions or tachypnea. Denies airway edema. Oxygen saturation is 99% on room air. Solu-Medrol, Zantac, Tylenol administered in the ER. Patient is driving and she will take Benadryl at home. Call to poison control ordered. 0845: Poison Control called and they recommended symptom management and to check the pH of bilateral eyes. PH checked and left eye irrigated with a pink normal saline bullet. PH of bilateral eyes 7 after left eye irrigation. See my procedure note for irrigation of left eye. Patient feels comfortable going home. Deltasone, Zantac prescribed for home. Instructed patient to take Benadryl as directed and as needed for rash. Discussed reasons to return to the emergency department. Patient verbalizes understanding and agreement with treatment plan. Patient is medically cleared and stable for discharge. Instructed patient to follow up with primary care provider. Patient agrees with treatment plan. The patients vital signs are stable and the patient is stable for outpatient follow-up and treatment. Patient discharged home, stable and in no acute distress. Diagnosis Primary Impression: Allergic reaction Qualified Code: T78.40XA - Allergic reaction, initial encounter Referrals: Primary Care Physician Patient Instructions: General Allergic Reaction (ED), General Instructions Additional Instructions: Take oral steroids as prescribed [id number] topicals to reduce itch Benadryl as directed and as needed to reduce itch/rash Follow-up with your primary care provider Follow-up with resilient tile installer as needed Return to the emergency department immediately with worsening of symptoms Med/Other Pt SpecificInfo: Prescription(s) given Scripts Ranitidine (Zantac)150 Mg Ovx133 Mg PO DAILY 5 Days Ref 0 Prov:Mayuri Cheung 08/26/16 Prednisone (Deltasone)20 Mg Tab40 Mg PO DAILY 5 Days Ref 0 start 08/27/2016 Prov:Mayuri Cheung 08/26/16 Disposition: DISCHARGE HOME Condition: Stable Mayuri Cheung Aug 26, 2016 08:18
[2016-08-26] MEDS ORDERED: ZANT150T2 PO (08:30)
[2016-08-26] MEDS ORDERED: PRED-503 PO (08:30)
[2016-08-26] MEDS ORDERED: ACETAMINOPHEN 325 MG TAB PO ONE (09:00)
== END 2016-08-26 09:05 | disposition home or self-care (01) ==
LOC: NEPK 07:50
DX: T78.40XA Allergy, unspecified, initial encounter (principal); R20.2 Paresthesia of skin; N18.9 Chronic kidney disease, unspecified; F32.9 Major depressive disorder, single episode, unspecified; Z79.899 Other long term (current) drug therapy
CPT/HCPCS: 96372; 99284; J2930

== ENCOUNTER 2016-09-08 07:29 | Day surgery (SDC) | payer MEDICARE, BC ==
[~2016-09-08] VITALS: Ht 154.9 cm; Wt 67.2 kg
[~2016-09-08 07:29] MED LIST changes: +PRED-503 PO; +ZANT150T2 PO
[2016-09-08 07:57] VITALS: BP 143/85; PULSE 75; RESP 20; TEMP 98.5; O2SAT 97
[2016-09-08 08:23] LABS: AUTOMATED NEUTROPHIL # 8.5 TH/MM3 (1.8-7.7); BASOPHIL % 0.2 % (0.0-2.0); EOSINOPHIL # 0.2 TH/MM3 (0-0.4); EOSINOPHIL % 2.1 % (0.0-4.0); HEMATOCRIT 29.9 % (35.0-46.0); HEMO FLAGS DIFF FINAL; LYMPH % 8.8 % (9.0-44.0); LYMPHOCYTE # 0.9 TH/MM3 (1.0-4.8); MEAN CORPUSCULAR HEMOGLOBIN 29.7 PG (27.0-34.0); MEAN CORPUSCULAR HGB CONC 31.6 % (32.0-36.0); MONO % 8.7 % (0.0-8.0); NEUT % 80.2 % (16.0-70.0); PLATELET COUNT 199 TH/MM3 (150-450); RED BLOOD COUNT 3.18 MIL/MM3 (4.00-5.30); RED CELL DISTRIBUTION WIDTH 14.6 % (11.6-17.2); WHITE BLOOD COUNT 10.7 TH/MM3 (4.0-11.0)
[2016-09-08] MEDS ORDERED: LEVOFLOXACIN 500 MG PREMIX 100 ML - nephrostomy tube insertion or exchange IV SCH (08:30)
[2016-09-08] MEDS ORDERED: SODIUM CHLORIDE 0.9% 1000 ML IV SCH (08:30)
[2016-09-08 08:35] LABS: APTT (PATIENT) 64.6 SEC (24.3-30.1); PROTHROMBIN TIME - PATIENT 10.7 SEC (9.8-11.6)
[2016-09-08 08:53] LABS: BICARBONATE 18.4 MEQ/L (21.0-32.0); POTASSIUM 4.1 MEQ/L (3.5-5.1)
[2016-09-08 09:28] LABS: APTT (PATIENT) 31.3 SEC (24.3-30.1)
[2016-09-08] MEDS ORDERED: MIDAZOLAM HCL 5 MG/5 ML VIAL ONE (09:34)
[2016-09-08] MEDS ORDERED: fentaNYL CITRATE 250 MCG/5 ML AMP ONE (09:34)
[2016-09-08] MEDS ORDERED: ONDANSETRON HCL 4 MG/2 ML VIAL ONE (10:27)
[2016-09-08] MEDS ORDERED: HYDROmorphone HCL PF 2 MG/ML VIAL ONE ×2 (10:27→10:34)
[2016-09-08] MEDS ORDERED: MIDAZOLAM HCL 2 MG/2 ML VIAL ONE (10:50)
--- NOTE | 2016-09-08 11:01 | PD.RAD ---
Post Procedure Progress Note Pre Procedure Diagnosis: (1) CKD (chronic kidney disease) (2) Hydronephrosis Post Procedure Diagnosis: (1) CKD (chronic kidney disease) (2) Hydronephrosis Procedure Date: Sep 08, 2016 Supervising Radiologist: Eirk Berry JR Proceduralist/Assist: Wero Jack, RT(R), Loree Infante RT(R), Daphney Bell RT(R)() Anesthesia: Conscious Sedation Plan of Activity Patient to Unit: ROPU Patient Condition: Good See PACS Report for procedural detail/treatment Drainage Procedure Procedure 1 Imaging Guidance: Fluoroscopy, Ultrasound Side: Bilateral Procedure Type: Nephrostomy Procedure: Placement Vincentian: 8 Drainage: [place] drainage Fluid Description: Clear Findings: Bilateral distal ureteral obstruction. Right sided double J stent allows very little drainage into the bladder. Bilateral PCNs placed without difficulty. Jr. Jamal,Erik Weaver MD Sep 08, 2016 11:01
[2016-09-08 11:10] VITALS: BP 130/78; PULSE 73; RESP 18; TEMP 98.5; O2SAT 98
[2016-09-08] MEDS ORDERED: IOHEXOL 350 MG/ML 50 ML BTL (for RAD DIAG) ONE (11:16)
[2016-09-08 11:25] VITALS: BP 147/86; PULSE 73; RESP 18; O2SAT 97
[2016-09-08 11:55] VITALS: BP 147/87; PULSE 81; RESP 18; O2SAT 97
[2016-09-08 12:25] VITALS: BP 140/94; PULSE 80; RESP 16; O2SAT 99
--- NOTE | 2016-09-08 12:33 | RADRPT ---
EXAM DATE/TIME: 09/08/2016 09:25 [facility] COMPARISON: No previous studies available for comparison. INDICATIONS : Patient with history of bladder cancer in need of bilateral nephrostomy tube placement. MEDICAL HISTORY : 1.Bladder carcinoma 2. Colon cancer 3. Thyroid cancer 4. Renal cancer SURGICAL HISTORY : 1. Thyroidectomy 2. Appendectomy 3. Hysterectomy 4. Ileostomy 5. Nephrostomy tubes ENCOUNTER: Subsequent ACUITY: >1 year PAIN SCORE: 0/10 FLUORO TIME: 4.0 minutes IMAGE SERIES: 1 SEDATION TIME: 60 minutes CONTRAST: 45 cc Omnipaque (iohexol) 350 MEDICATION(S): 1.) 6 mg midazolam (Versed) IV 2.) 250 mcg fentanyl (Sublimaze) IV 3.) 3 mg hydromorphone (Dilaudid) IV DEVICE(S): 1.) 8 [place] nephrostomy catheter PROCEDURE : 1. Ultrasound-guided puncture of the kidney. 2. Antegrade percutaneous pyelogram. 3. Percutaneous left nephrostomy placement. 4. Conscious sedation with continuous EKG and oximetry monitoring. The risks, benefits and alternatives to the procedure were explained and verbal and written consent w as obtained. The site was prepped in sterile fashion. Full sterile technique was used, including ca p, mask, sterile gloves and gown and a large sterile sheet. Hand hygiene and 2% chlorhexidine and/or betadine/alcohol prep was utilized per protocol for cutaneous antisepsis. The skin and subcutaneous tissues were infiltrated with local anesthetic solution. With ultrasound and fluoroscopic guidance the left kidney was punctured and a percutaneous antegrade pyelogram was performed demonstrating a dilated collecting system. Serial dilatation was performed a nd a prescribed nephrostomy tube was placed within the renal pelvis and sutured in place. Conscious sedation was performed with the prescribed dosages and duration as above in the presence of an independent trained radiology nurse to assist in the monitoring of the patient. EKG and oximetry remained stable throughout the procedure. The patient tolerated the procedure well and there were n o complications. The patient was sent to post anesthesia recovery in stable condition. CONCLUSION: Uncomplicated left nephrostomy tube placement as above. Erik Berry Jr., MD on September 08, 2016 at 12:31 Board Certified Radiologist. This report was verified electronically.
--- NOTE | 2016-09-08 12:33 | RADRPT ---
EXAM DATE/TIME: 09/08/2016 09:25 [facility] COMPARISON: No previous studies available for comparison. INDICATIONS : Patient with history of bladder cancer in need of bilateral nephrostomy tube placement. Has bilateral hydronephrosis despite right-sided double J stent. MEDICAL HISTORY : 1.Bladder carcinoma 2. Colon cancer 3. Thyroid cancer 4. Renal cancer SURGICAL HISTORY : 1. Thyroidectomy 2. Appendectomy 3. Hysterectomy 4. Ileostomy 5. Nephrostomy tubes ENCOUNTER: Subsequent ACUITY: >1 year PAIN SCORE: 0/10 FLUORO TIME: 4.0 minutes IMAGE SERIES: 1 SEDATION TIME: 60 minutes CONTRAST: 45 cc Omnipaque (iohexol) 350 MEDICATION(S): 1.) 6 mg midazolam (Versed) IV 2.) 250 mcg fentanyl (Sublimaze) IV 3.) 3 mg hydromorphone (Dilaudid) IV DEVICE(S): 1.) 8 [place] nephrostomy catheter PROCEDURE : 1. Ultrasound-guided puncture of the kidney. 2. Antegrade percutaneous pyelogram. 3. Percutaneous right nephrostomy placement. 4. Conscious sedation with continuous EKG and oximetry monitoring. The risks, benefits and alternatives to the procedure were explained and verbal and written consent w as obtained. The site was prepped in sterile fashion. Full sterile technique was used, including ca p, mask, sterile gloves and gown and a large sterile sheet. Hand hygiene and 2% chlorhexidine and/or betadine/alcohol prep was utilized per protocol for cutaneous antisepsis. The skin and subcutaneous tissues were infiltrated with local anesthetic solution. With ultrasound and fluoroscopic guidance the right kidney was punctured and a percutaneous antegrade pyelogram was performed demonstrating a dilated collecting system. The double J stent is largely occ luded. A minimal amount of contrast is seen coursing to the urinary bladder. Serial dilatation was pe rformed and a prescribed nephrostomy tube was placed within the renal pelvis and sutured in place. Conscious sedation was performed with the prescribed dosages and duration as above in the presence of an independent trained radiology nurse to assist in the monitoring of the patient. EKG and oximetry remained stable throughout the procedure. The patient tolerated the procedure well and there were n o complications. The patient was sent to post anesthesia recovery in stable condition. CONCLUSION: Uncomplicated right nephrostomy tube placement as above. The existing double J stent only allows mini mal amounts of contrast to the urinary bladder. Erik Berry Jr., MD on September 08, 2016 at 11:53 Board Certified Radiologist. This report was verified electronically.
== END 2016-09-08 13:15 | disposition home or self-care (01) ==
LOC: HROP 07:29 → HRIP 07:32 → HROP 13:15
PROVIDERS: ATTEND Urology
DX: N13.30 Unspecified hydronephrosis (principal); N18.9 Chronic kidney disease, unspecified; Z85.038 Personal history of other malignant neoplasm of large intestine; Z85.850 Personal history of malignant neoplasm of thyroid; Z85.528 Personal history of other malignant neoplasm of kidney; Z01.818 Encounter for other preprocedural examination
CPT/HCPCS: 50432; 80048; 85025; 85610; 85730; 99152; 99153; C1729; C1769; C1894; J1170; J1642; J2250; J2405; J3010; J7030; Q9967

== ENCOUNTER 2016-10-08 09:31 | Day surgery (SDC) | payer MEDICARE, BC ==
[~2016-10-08] VITALS: Ht 154.9 cm; Wt 66.0 kg
[~2016-10-08 09:31] MED LIST changes: -PRED-503 PO; -ZANT150T2 PO
[2016-10-08 09:44] VITALS: BP 142/85; PULSE 95; RESP 20; TEMP 97.9; O2SAT 97
[2016-10-08] MEDS ORDERED: LEVOFLOXACIN 500 MG PREMIX 100 ML - nephrostomy tube insertion or exchange IV SCH (10:00)
[2016-10-08] MEDS ORDERED: SODIUM CHLORIDE 0.9% 1000 ML IV SCH (10:00)
[2016-10-08] MEDS ORDERED: fentaNYL CITRATE 250 MCG/5 ML AMP ONE (11:10)
[2016-10-08] MEDS ORDERED: MIDAZOLAM HCL 2 MG/2 ML VIAL ONE ×3 (11:10→11:44)
[2016-10-08 12:15] VITALS: BP 123/75; PULSE 81; RESP 16; TEMP 97.8; O2SAT 98
[2016-10-08 12:17] VITALS: BP 127/84; PULSE 72; RESP 18; TEMP 97.8; O2SAT 98
[2016-10-08 12:30] VITALS: BP 122/75; PULSE 81; RESP 16; O2SAT 98
[2016-10-08 13:00] VITALS: BP 137/72; PULSE 80; RESP 16; O2SAT 98
--- NOTE | 2016-10-08 13:08 | PD.RAD ---
Post Procedure Progress Note Pre Procedure Diagnosis: (1) Nephrostomy tubes, chronic Post Procedure Diagnosis: (1) Nephrostomy tubes, chronic Procedure Date: Oct 08, 2016 Supervising Radiologist: Usama Lopez Proceduralist/Assist: Wero Jack RT(R), Berny Daniels RT(R) Anesthesia: Local, Analgesia, Conscious Sedation Plan of Activity Patient to Unit: ROPU Patient Condition: Good See PACS Report for procedural detail/treatment Drainage Procedure Procedure 1 Imaging Guidance: Fluoroscopy Side: Bilateral Procedure Type: Nephrostomy Procedure: Replacement [place]: 8 Drainage: [place] drainage Fluid Description: Usama Ibarra MD Oct 08, 2016 13:08
[2016-10-08 13:30] VITALS: BP 132/72; PULSE 76; RESP 16; O2SAT 98
[2016-10-08] MEDS ORDERED: IOHEXOL 350 MG/ML 50 ML BTL (for RAD DIAG) OTHER ONE (16:48)
--- NOTE | 2016-10-14 23:05 | RADRPT ---
EXAM DATE/TIME: 10/08/2016 11:14 [facility] COMPARISON: CHANGE OF NEPHROSTOMY CATH, RT, December 04, 2014, 8:23.wwq INDICATIONS : Patient with a history of bladder cancer, needs nephrostomy tubes changed. MEDICAL HISTORY : Colorectal cancer diagnosed in 1994 Bowel obstruction. 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 Hypothyroidism. Depression. Skin cancer. Thyroid cancer 2003. Bladder cancer. Gout. Recurrent urinary tract infections Tachycardia. Previous dialysis. Hydration therapy Bowel obstruction that did not require surgical intervention. SURGICAL HISTORY : She underwent chemotherapy, radiation and resection Colostomy reversed and had an ileostomy created in 2010. Indwelling bilateral nephro-ureteral catheters PORT-A-CATH insertion. Hysterectomy. Appendectomy. Thyroidectomy. Status post exploratory lap, lysis of adhesions, resection of ileostomy and ileocolostomy July 11 Left nephrostomy Right nephrostomy ENCOUNTER: Subsequent ACUITY: >1 year PAIN SCORE: 0/10 FLUORO TIME: 3.0 minutes IMAGE SERIES: 3 SEDATION TIME: 45 minutes CONTRAST: 25 cc Omnipaque (iohexol) 350 MEDICATION(S): 1.) 5 mg midazolam (Versed) IV 2.) 250 mcg fentanyl (Sublimaze) IV DEVICE(S): 1.) 8 [place] nephrostomy catheter PROCEDURE : 1. Antegrade pyelogram. 2. Nephrostomy tube exchange. 3. Conscious sedation with continuous EKG and oximetry monitoring. The risks, benefits and alternatives to the procedure were explained and verbal and written consent w as obtained. The site was prepped in sterile fashion. Full sterile technique was used, including ca p, mask, sterile gloves and gown and a large sterile sheet. Hand hygiene and 2% chlorhexidine and/or betadine/alcohol prep was utilized per protocol for cutaneous antisepsis. The skin and subcutaneous tissues were infiltrated with local anesthetic solution. With fluoroscopic guidance antegrade pyelo gram was performed. Over a guidewire the prescribed nephrostomy tube was placed. Injection of positive contrast demonstra sly good position of the catheter within the collecting system. Conscious sedation was performed with the prescribed dosages and duration as above in the presence of an independent trained radiology nurse to assist in the monitoring of the patient. EKG and oximetry remained stable throughout the procedure. The patient tolerated the procedure well and there were n o complications. The patient was sent to post anesthesia recovery in stable condition. CONCLUSION: Uncomplicated nephrostomy tube exchange as above. Usama Lopez MD on October 14, 2016 at 23:03 Board Certified Radiologist. This report was verified electronically.
--- NOTE | 2016-10-14 23:06 | RADRPT ---
EXAM DATE/TIME: 10/08/2016 11:14 [facility] COMPARISON: CHANGE OF NEPHROSTOMY CATH, LT, May 29, 2014, 12:01. INDICATIONS : Patient with a history of bladder cancer, needs nephrostomy tubes changed. MEDICAL HISTORY : Colorectal cancer diagnosed in 1994 Bowel obstruction. 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 Hypothyroidism. Depression. Skin cancer. Thyroid cancer 2003. Bladder cancer. Gout. Recurrent urinary tract infections Tachycardia. Previous dialysis. Hydration therapy Bowel obstruction that did not require surgical intervention. SURGICAL HISTORY : She underwent chemotherapy, radiation and resection. Colostomy reversed and had an ileostomy created in 2010. Indwelling bilateral nephro-ureteral catheters secondary to bilateral ureteral strictures PORT-A-CATH insertion. Tachycardia. Hysterectomy. Appendectomy. Thyroidectomy. Bowel obstruction that did not require surgical intervention. Status post ileostomy revision 06/19/2014 Status post exploratory lap, lysis of adhesions, resection of ileostomy and ileocolostomy July 11 5 Left nephrostomy tube removal Right nephrostomy tube exchange February 10, 2016 Reported Medications ENCOUNTER: Subsequent ACUITY: >1 year PAIN SCORE: 0/10 FLUORO TIME: 3.0 minutes IMAGE SERIES: 3 SEDATION TIME: 45 minutes CONTRAST: 25 cc Omnipaque (iohexol) 350 MEDICATION(S): 1.) 5 mg midazolam (Versed) IV 2.) 250 mcg fentanyl (Sublimaze) IV DEVICE(S): 1.) 8 [place] nephrostomy catheter PROCEDURE : 1. Antegrade pyelogram. 2. Nephrostomy tube exchange. 3. Conscious sedation with continuous EKG and oximetry monitoring. The risks, benefits and alternatives to the procedure were explained and verbal and written consent w as obtained. The site was prepped in sterile fashion. Full sterile technique was used, including ca p, mask, sterile gloves and gown and a large sterile sheet. Hand hygiene and 2% chlorhexidine and/or betadine/alcohol prep was utilized per protocol for cutaneous antisepsis. The skin and subcutaneous tissues were infiltrated with local anesthetic solution. With fluoroscopic guidance antegrade pyelo gram was performed. Over a guidewire the prescribed nephrostomy tube was placed. Injection of positive contrast demonstra sly good position of the catheter within the collecting system. Conscious sedation was performed with the prescribed dosages and duration as above in the presence of an independent trained radiology nurse to assist in the monitoring of the patient. EKG and oximetry remained stable throughout the procedure. The patient tolerated the procedure well and there were n o complications. The patient was sent to post anesthesia recovery in stable condition. CONCLUSION: Uncomplicated nephrostomy tube exchange as above. Usama Lopez MD on October 14, 2016 at 23:04 Board Certified Radiologist. This report was verified electronically.
== END 2016-10-08 14:00 | disposition home or self-care (01) ==
LOC: HRIP 09:31 → HROP 09:31
PROVIDERS: ATTEND Urology
DX: Z43.6 Encounter for attention to other artificial openings of urinary tract (principal); Z85.51 Personal history of malignant neoplasm of bladder; Z85.528 Personal history of other malignant neoplasm of kidney
CPT/HCPCS: 50435; 99152; 99153; C1729; C1769; C1887; J1642; J1956; J2250; J3010; J7030; Q9967

== ENCOUNTER 2016-11-30 06:53 | Day surgery (SDC) | payer MEDICARE, BC ==
[~2016-11-30] VITALS: Ht 154.9 cm; Wt 67.3 kg
[2016-11-30] MEDS ORDERED: IOHEXOL 350 MG/ML 50 ML BTL (for RAD DIAG) OTHER ONE (06:54)
[2016-11-30 07:10] VITALS: BP 141/87; PULSE 78; RESP 20; TEMP 97.7; O2SAT 97
[2016-11-30] MEDS ORDERED: LEVOFLOXACIN 500 MG PREMIX 100 ML - nephrostomy tube insertion or exchange IV SCH (07:15)
[2016-11-30] MEDS ORDERED: SODIUM CHLORIDE 0.9% FLUSH 10 ML FLUSH IV FLUSH PRN (07:30)
[2016-11-30] MEDS ORDERED: MIDAZOLAM HCL 2 MG/2 ML VIAL ONE ×2 (08:24→09:06)
[2016-11-30 09:30] VITALS: BP 141/89; PULSE 76; RESP 16; TEMP 97.4; O2SAT 98
[2016-11-30 09:45] VITALS: BP 122/76; PULSE 69; RESP 18; O2SAT 98
[2016-11-30 10:15] VITALS: BP 131/79; PULSE 58; RESP 16; O2SAT 98
--- NOTE | 2016-11-30 10:28 | PD.RAD ---
Post Procedure Progress Note Pre Procedure Diagnosis: (1) Nephrostomy tubes, chronic (2) Chronic pain Post Procedure Diagnosis: (1) Nephrostomy tubes, chronic (2) Chronic pain Procedure Date: Nov 30, 2016 Supervising Radiologist: Usama Lopez Proceduralist/Assist: Wero Jack, RT(R), Berny Daniels RT(R) Anesthesia: Local, Analgesia, Conscious Sedation Plan of Activity Patient to Unit: ROPU See PACS Report for procedural detail/treatment Drainage Procedure Procedure 1 Imaging Guidance: Fluoroscopy Side: Bilateral Procedure Type: Nephrostomy Procedure: Exchange, Evaluation [place]: 10 Drainage: [place] drainage Fluid Description: Yellow Findings: Calcific concretions in both tubes. Upsized from 8.3 to 10.3 fr due to leaking around tubes. Usama Lopez MD Nov 30, 2016 10:28
[2016-11-30 10:45] VITALS: BP 126/78; PULSE 67; RESP 18; O2SAT 97
--- NOTE | 2016-11-30 15:29 | RADRPT ---
EXAM DATE/TIME: 11/30/2016 00:00 [facility] COMPARISON: CHANGE OF NEPHROSTOMY CATH, LT, October 08, 2016, 11:14. INDICATIONS : Patient presents with bladder cancer in need of bilateral nephrostomy tube exchange due to obstructio n. MEDICAL HISTORY : Colorectal cancer diagnosed in 1994 Bowel obstruction. 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 Hypothyroidism. Depression. Skin cancer. Thyroid cancer 2003. Bladder cancer. Gout. Recurrent urinary tract infections Tachycardia. Previous dialysis. Hydration therapy Bowel obstruction that did not require surgical intervention. SURGICAL HISTORY : Colostomy reversed and had an ileostomy created in 2010. Indwelling bilateral nephro-ureteral catheters secondary to bilateral Ureteral strictures PORT-A-CATH insertion. Tachycardia. Hysterectomy. Appendectomy. Thyroidectomy. Bowel obstruction that did not require surgical intervention. Status post ileostomy revision 06/19/2014 Status post exploratory lap, lysis of adhesions, resection of ileostomy and ileocolostomy July 11 5 Left nephrostomy tube removal Right nephrostomy tube exchange February 10, 2016 ENCOUNTER: Subsequent ACUITY: 3 months PAIN SCORE: 8/10 LOCATION: Bilateral flank FLUORO TIME: 3.7 minutes IMAGE SERIES: 4 SEDATION TIME: 40 minutes CONTRAST: 35 cc Omnipaque (iohexol) 350 MEDICATION(S): 1.) 6 mg midazolam (Versed) IV 2.) 300 mcg fentanyl (Sublimaze) IV DEVICE(S): 1.) 10 [place] 25CM EXPEL PROCEDURE : 1. Antegrade pyelogram. 2. Nephrostomy tube exchange. 3. Conscious sedation with continuous EKG and oximetry monitoring. The risks, benefits and alternatives to the procedure were explained and verbal and written consent w as obtained. The site was prepped in sterile fashion. Full sterile technique was used, including ca p, mask, sterile gloves and gown and a large sterile sheet. Hand hygiene and 2% chlorhexidine and/or betadine/alcohol prep was utilized per protocol for cutaneous antisepsis. The skin and subcutaneous tissues were infiltrated with local anesthetic solution. With fluoroscopic guidance antegrade pyelo gram was performed. Contrast was injected into the existing catheter which showed the [place] loop to be withdrawn into the lower pole calyceal system but still adequately positioned. Wire was advanced through the lumen Over a guidewire the prescribed nephrostomy tube was placed. Injection of positive contrast demonstra sly good position of the catheter within the collecting system. Conscious sedation was performed with the prescribed dosages and duration as above in the presence of an independent trained radiology nurse to assist in the monitoring of the patient. EKG and oximetry remained stable throughout the procedure. The patient tolerated the procedure well and there were n o complications. The patient was sent to post anesthesia recovery in stable condition. CONCLUSION: Uncomplicated nephrostomy tube exchange as above. Tube was upsized to 10.3 [place] due to some reported leakage around the tube itself. Usama Lopez MD on November 30, 2016 at 15:25 Board Certified Radiologist. This report was verified electronically.
--- NOTE | 2016-11-30 15:30 | RADRPT ---
EXAM DATE/TIME: 11/30/2016 00:00 [facility] COMPARISON: CHANGE OF NEPHROSTOMY CATH, RT, October 08, 2016, 11:14. INDICATIONS : Patient presents with bladder cancer in need of bilateral nephrostomy tube exchange due to obstructio n. MEDICAL HISTORY : Colorectal cancer diagnosed in 1994 Bowel obstruction. 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 Hypothyroidism. Depression. Skin cancer. Thyroid cancer 2003. Bladder cancer. Gout. Recurrent urinary tract infections Tachycardia. Previous dialysis. Hydration therapy Bowel obstruction that did not require surgical intervention. SURGICAL HISTORY : Colostomy reversed and had an ileostomy created in 2010. Indwelling bilateral nephro-ureteral catheters secondary to bilateral Ureteral strictures PORT-A-CATH insertion. Tachycardia. Hysterectomy. Appendectomy. Thyroidectomy. Bowel obstruction that did not require surgical intervention. Status post ileostomy revision 06/19/2014 Status post exploratory lap, lysis of adhesions, resection of ileostomy and ileocolostomy July 11 5 Left nephrostomy tube removal Right nephrostomy tube exchange February 10, 2016 ENCOUNTER: Subsequent ACUITY: 3 months PAIN SCORE: 8/10 LOCATION: Bilateral flank FLUORO TIME: 3.7 minutes IMAGE SERIES: 4 SEDATION TIME: 40 minutes CONTRAST: 35 cc Omnipaque (iohexol) 350 MEDICATION(S): 1.) 6 mg midazolam (Versed) IV 2.) 300 mcg fentanyl (Sublimaze) IV 3.) DEVICE(S): 1.) 10 [place] 25CM EXPEL PROCEDURE : 1. Antegrade pyelogram. 2. Nephrostomy tube exchange. 3. Conscious sedation with continuous EKG and oximetry monitoring. The risks, benefits and alternatives to the procedure were explained and verbal and written consent w as obtained. The site was prepped in sterile fashion. Full sterile technique was used, including ca p, mask, sterile gloves and gown and a large sterile sheet. Hand hygiene and 2% chlorhexidine and/or betadine/alcohol prep was utilized per protocol for cutaneous antisepsis. The skin and subcutaneous tissues were infiltrated with local anesthetic solution. With fluoroscopic guidance antegrade pyelo gram was performed. Over a guidewire the prescribed nephrostomy tube was placed. Injection of positive contrast demonstra sly good position of the catheter within the collecting system. Conscious sedation was performed with the prescribed dosages and duration as above in the presence of an independent trained radiology nurse to assist in the monitoring of the patient. EKG and oximetry remained stable throughout the procedure. The patient tolerated the procedure well and there were n o complications. The patient was sent to post anesthesia recovery in stable condition. CONCLUSION: Uncomplicated nephrostomy tube exchange as above. Tube was upsized to 10.3 [place] due to some reported leakage around the tube itself. Usama Lopez MD on November 30, 2016 at 15:27 Board Certified Radiologist. This report was verified electronically.
== END 2016-11-30 11:24 | disposition home or self-care (01) ==
LOC: HROP 06:53 → HRIP 06:54 → HROP 11:24
PROVIDERS: ATTEND Urology
DX: N99.528 Other complication of incontinent external stoma of urinary tract (principal); G89.29 Other chronic pain; C67.9 Malignant neoplasm of bladder, unspecified; E03.9 Hypothyroidism, unspecified; N18.9 Chronic kidney disease, unspecified; F32.9 Major depressive disorder, single episode, unspecified; Z85.038 Personal history of other malignant neoplasm of large intestine; Z85.850 Personal history of malignant neoplasm of thyroid; Z85.828 Personal history of other malignant neoplasm of skin
CPT/HCPCS: 50435; 99152; 99153; C1729; C1769; J1642; J1956; J2250; J3010; Q9967

== ENCOUNTER 2016-12-14 08:24 | Day surgery (SDC) | payer MEDICARE, BC ==
[~2016-12-14] VITALS: Ht 154.9 cm; Wt 67.3 kg
[2016-12-14 08:37] VITALS: BP 136/75; PULSE 72; RESP 20; TEMP 98.1; O2SAT 97
[2016-12-14] MEDS ORDERED: LEVOFLOXACIN 500 MG PREMIX 100 ML - nephrostomy tube insertion or exchange IV SCH (08:45)
[2016-12-14] MEDS ORDERED: SODIUM CHLORIDE 0.9% FLUSH 10 ML FLUSH IV FLUSH PRN (09:00)
== END 2016-12-14 10:10 | disposition home or self-care (01) ==
LOC: HROP 08:24 → HRIP 08:28 → HROP 10:10
PROVIDERS: ATTEND Internal Medicine Hematology
DX: K91.2 Postsurgical malabsorption, not elsewhere classified (principal)
CPT/HCPCS: G0463; J1642; 99213

== ENCOUNTER 2017-04-14 08:31 | Day surgery (SDC) | payer MEDICARE, BC ==
[~2017-04-14] VITALS: Ht 165.1 cm; Wt 68.2 kg
[2017-04-14] MEDS ORDERED: IOHEXOL 350 MG/ML 50 ML BTL (for RAD DIAG) OTHER ONE (08:32)
[2017-04-14 08:52] VITALS: BP 140/87; PULSE 74; RESP 20; TEMP 98.3; O2SAT 99
[2017-04-14] MEDS ORDERED: MIDAZOLAM HCL 2 MG/2 ML VIAL ONE (10:03)
[2017-04-14] MEDS ORDERED: LEVOFLOXACIN 500 MG PREMIX INJ 100 ML IV ONE (10:04)
[2017-04-14 11:05] VITALS: BP_SYST 135; BP_DIAS 58; BP_DIAS 88; PULSE 71; RESP 16; RESP 20; TEMP 98.1; O2SAT 100
--- NOTE | 2017-04-14 11:18 | PD.RAD ---
Post Procedure Progress Note Pre Procedure Diagnosis: (1) Chronic bilateral ureteral strictures (2) Nephrostomy tubes, chronic Post Procedure Diagnosis: (1) Chronic bilateral ureteral strictures (2) Nephrostomy tubes, chronic Procedure Date: Apr 14, 2017 Supervising Radiologist: Usama Lopez Proceduralist/Assist: Elizabeth Hampton, RT(R), Wero Jack, RT(R) Anesthesia: Analgesia, Conscious Sedation Plan of Activity Patient to Unit: ROPU Patient Condition: Good See PACS Report for procedural detail/treatment Drainage Procedure Procedure 1 Imaging Guidance: Fluoroscopy Side: Bilateral Procedure Type: Nephrostomy Procedure: Exchange Urdu: 10 Drainage: [place] drainage Fluid Description: Usama Ibarra MD Apr 14, 2017 11:18
[2017-04-14 11:20] VITALS: BP 127/60; PULSE 70; RESP 20; O2SAT 100
[2017-04-14 11:50] VITALS: BP 137/58; PULSE 70; RESP 20; O2SAT 100
[2017-04-14 12:20] VITALS: BP 140/60; PULSE 70; RESP 20; O2SAT 100
[2017-04-14 12:50] VITALS: BP 132/60; PULSE 70; RESP 20; O2SAT 100
--- NOTE | 2017-04-15 14:43 | RADRPT ---
EXAM DATE/TIME: 04/14/2017 10:13 [facility] COMPARISON: CHANGE OF NEPHROSTOMY CATH, RT, November 30, 2016, 0:00. INDICATIONS : Patient with a history of obstruction needs change of nephrostomy. MEDICAL HISTORY : colorectal cancer bowel obstruction CKD hypothyroidism thyroid cancer skin cancer gout tackycardia SURGICAL HISTORY : Colostomy reversed and had an ileostomy created in 2010 indwelling bilateral nephroureteral catheters [id number] hysterectomy appendectomy throidectomy ENCOUNTER: Subsequent ACUITY: >1 year PAIN SCORE: 0/10 FLUORO TIME: 2.7 minutes IMAGE SERIES: 4 SEDATION TIME: 30 minutes CONTRAST: 15 cc Omnipaque (iohexol) 350 MEDICATION(S): 1.) 4 mg midazolam (Versed) IV 2.) 100 mcg fentanyl (Sublimaze) IV DEVICE(S): 1.) 10 [place] nephrostomy catheter PROCEDURE : 1. Antegrade pyelogram. 2. Nephrostomy tube exchange. 3. Conscious sedation with continuous EKG and oximetry monitoring. The risks, benefits and alternatives to the procedure were explained and verbal and written consent w as obtained. The site was prepped in sterile fashion. Full sterile technique was used, including ca p, mask, sterile gloves and gown and a large sterile sheet. Hand hygiene and 2% chlorhexidine and/or betadine/alcohol prep was utilized per protocol for cutaneous antisepsis. The skin and subcutaneous tissues were infiltrated with local anesthetic solution. With fluoroscopic guidance antegrade pyelo gram was performed. Over a guidewire the prescribed nephrostomy tube was placed. Injection of positive contrast demonstra sly good position of the catheter within the collecting system. Conscious sedation was performed with the prescribed dosages and duration as above in the presence of an independent trained radiology nurse to assist in the monitoring of the patient. EKG and oximetry remained stable throughout the procedure. The patient tolerated the procedure well and there were n o complications. The patient was sent to post anesthesia recovery in stable condition. CONCLUSION: Uncomplicated nephrostomy tube exchange as above. Usama Lopez MD on April 15, 2017 at 14:41 Board Certified Radiologist. This report was verified electronically.
--- NOTE | 2017-04-15 14:46 | RADRPT ---
EXAM DATE/TIME: 04/14/2017 10:13 [facility] COMPARISON: CHANGE OF NEPHROSTOMY CATH, LT, November 30, 2016, 0:00. INDICATIONS : Patient with a history of obstruction needs change of nephrostomy. MEDICAL HISTORY : colorectal cancer bowel obstruction CKD hypothyroidism thyroid cancer skin cancer gout tackycardia SURGICAL HISTORY : Colostomy reversed and had an ileostomy created in 2010 indwelling bilateral nephroureteral catheters [id number] hysterectomy appendectomy throidectomy ENCOUNTER: Subsequent ACUITY: >1 year PAIN SCORE: 0/10 FLUORO TIME: 2.7 minutes IMAGE SERIES: 4 SEDATION TIME: 30 minutes CONTRAST: 15 cc Omnipaque (iohexol) 350 MEDICATION(S): 1.) 4 mg midazolam (Versed) IV 2.) 100 mcg fentanyl (Sublimaze) IV DEVICE(S): 1.) 10 [place] nephrostomy catheter PROCEDURE : 1. Antegrade pyelogram. 2. Nephrostomy tube exchange. 3. Conscious sedation with continuous EKG and oximetry monitoring. The risks, benefits and alternatives to the procedure were explained and verbal and written consent w as obtained. The site was prepped in sterile fashion. Full sterile technique was used, including ca p, mask, sterile gloves and gown and a large sterile sheet. Hand hygiene and 2% chlorhexidine and/or betadine/alcohol prep was utilized per protocol for cutaneous antisepsis. With fluoroscopic guidan ce antegrade pyelogram was performed. Over a guidewire the prescribed nephrostomy tube was placed. Injection of positive contrast demonstra sly good position of the catheter within the collecting system. Conscious sedation was performed with the prescribed dosages and duration as above in the presence of an independent trained radiology nurse to assist in the monitoring of the patient. EKG and oximetry remained stable throughout the procedure. The patient tolerated the procedure well and there were n o complications. The patient was sent to post anesthesia recovery in stable condition. CONCLUSION: Uncomplicated nephrostomy tube exchange as above. Usama Lopez MD on April 15, 2017 at 14:41 Board Certified Radiologist. This report was verified electronically.
== END 2017-04-14 13:00 | disposition home or self-care (01) ==
LOC: HROP 08:31 → HRIP 08:34 → HROP 13:00
PROVIDERS: ATTEND Urology
DX: N13.8 Other obstructive and reflux uropathy (principal); N18.9 Chronic kidney disease, unspecified; N13.1 Hydronephrosis with ureteral stricture, not elsewhere classified
CPT/HCPCS: 50435; 99152; 99153; C1729; C1769; C1887; J1642; J1956; J2250; J3010; Q9967

== ENCOUNTER 2017-06-28 06:47 | Day surgery (SDC) | payer MEDICARE, BC ==
[~2017-06-28] VITALS: Ht 154.9 cm; Wt 66.8 kg
[2017-06-28] MEDS ORDERED: IOHEXOL 350 MG/ML 50 ML BTL (for RAD DIAG) OTHER ONE (06:48)
[2017-06-28 07:12] VITALS: BP 124/72; PULSE 72; RESP 18; TEMP 97.7; O2SAT 96
[2017-06-28] MEDS ORDERED: SODIUM CHLORIDE 0.9% 1000 ML IV SCH (07:45)
[2017-06-28] MEDS ORDERED: IMPLANTED VASCULAR ACCESS PORT - SODIUM CHLORIDE FLUSH IV FLUSH SCH (08:00)
[2017-06-28] MEDS ORDERED: IMPLANTED VASCULAR ACCESS PORT - SODIUM CHLORIDE FLUSH PRN IV FLUSH (08:00)
[2017-06-28] MEDS ORDERED: LEVOFLOXACIN 500 MG PREMIX 100 ML - nephrostomy tube insertion or exchange IV SCH (08:00)
[2017-06-28] MEDS ORDERED: MIDAZOLAM HCL 2 MG/2 ML VIAL ONE ×2 (10:27→11:13)
--- NOTE | 2017-06-28 11:41 | PD.RAD ---
Post Procedure Progress Note Pre Procedure Diagnosis: (1) Nephrostomy tubes, chronic (2) Hydronephrosis Post Procedure Diagnosis: (1) Nephrostomy tubes, chronic (2) Hydronephrosis Procedure Date: June 28, 2017 Supervising Radiologist: Luis Villalta Estimated blood loss: 3cc Plan of Activity Patient to Unit: ROPU Patient Condition: Good Additional Comments: Left nephrostomy exchanged for an internal ureteral stent. Attempted exchange on the right. No residual right ureter remaining. 10french nephrostomy in place Full dictated report to follow See PACS Report for procedural detail/treatment Luis Villalta MD June 28, 2017 11:41
[2017-06-28 11:50] VITALS: BP 147/94; PULSE 74; RESP 18; TEMP 97.7; O2SAT 98
[2017-06-28 12:03] VITALS: BP 153/87; PULSE 73; RESP 17; O2SAT 96
[2017-06-28 12:20] VITALS: BP 154/90; PULSE 77; RESP 16; O2SAT 98
[2017-06-28 12:50] VITALS: BP 149/89; PULSE 76; RESP 16; O2SAT 97
[2017-06-28 13:20] VITALS: BP 138/74; PULSE 75; RESP 16; O2SAT 98
[2017-06-28] MEDS ORDERED: ACETAMINOPHEN/HYDROcodone 325 MG/7.5 MG TAB PO ONE (13:45)
--- NOTE | 2017-06-29 15:15 | RADRPT ---
EXAM DATE/TIME: 06/28/2017 10:23 [facility] COMPARISON: ANTEGRADE PYELOGRAM, RIGHT, June 28, 2017, 0:00. INDICATIONS : Patient with history of bladder cancer, unable to internalize with stent. MEDICAL HISTORY : 1.Bladder carcinoma 2. Colon cancer 3. Thyroid cancer 4. Renal cancer SURGICAL HISTORY : 1. Thyroidectomy 2. Appendectomy 3. Hysterectomy 4. Ileostomy 5. Nephrostomy tubes ENCOUNTER: Subsequent ACUITY: 2 months PAIN SCORE: 0/10 FLUORO TIME: 24.8 minutes IMAGE SERIES: 3 SEDATION TIME: 35 minutes CONTRAST: 30 cc Omnipaque (iohexol) 350 MEDICATION(S): 1.) 6 mg midazolam (Versed) IV 2.) 300 mcg fentanyl (Sublimaze) IV DEVICE(S): 1.) 10 [place] nephrostomy catheter PROCEDURE : 1. Antegrade pyelogram. 2. Nephrostomy tube exchange. 3. Conscious sedation with continuous EKG and oximetry monitoring. The risks, benefits and alternatives to the procedure were explained and verbal and written consent w as obtained. The site was prepped in sterile fashion. Full sterile technique was used, including ca p, mask, sterile gloves and gown and a large sterile sheet. Hand hygiene and 2% chlorhexidine and/or betadine/alcohol prep was utilized per protocol for cutaneous antisepsis. The skin and subcutaneous tissues were infiltrated with local anesthetic solution. With fluoroscopic guidance antegrade pyelo gram was performed. Multiple catheter and wire combinations were used in an attempt to reestablish communication from the distal right ureter to the bladder. Despite numerous attempts this was not successful. A new 10 [place] nephrostomy tube was placed over a guidewire through the existing tract. Injection of positive contrast demonstrates good position of the catheter within the collecting system. Conscious sedation was performed with the prescribed dosages and duration as above in the presence of an independent trained radiology nurse to assist in the monitoring of the patient. EKG and oximetry remained stable throughout the procedure. The patient tolerated the procedure well and there were n o complications. The patient was sent to post anesthesia recovery in stable condition. CONCLUSION: Uncomplicated nephrostomy tube exchange as above. Luis Villalta MD on June 29, 2017 at 15:11 Board Certified Radiologist. This report was verified electronically.
--- NOTE | 2017-06-29 16:17 | RADRPT ---
EXAM DATE/TIME: 06/28/2017 10:23 [facility] COMPARISON: ANTEGRADE PYELOGRAM, RIGHT, June 28, 2017, 0:00. INDICATIONS : Patient with history of bladder cancer here for internalization of nephrostomy tube. MEDICAL HISTORY : 1.Bladder carcinoma 2. Colon cancer 3. Thyroid cancer 4. Renal cancer SURGICAL HISTORY : 1. Thyroidectomy 2. Appendectomy 3. Hysterectomy 4. Ileostomy 5. Nephrostomy tubes ENCOUNTER: Subsequent ACUITY: 2 months PAIN SCORE: 0/10 FLUORO TIME: 24.8 minutes IMAGE SERIES: 3 SEDATION TIME: 35 minutes CONTRAST: 30 cc Omnipaque (iohexol) 350 MEDICATION(S): 1.) 6 mg midazolam (Versed) IV 2.) 300 mcg fentanyl (Sublimaze) IV DEVICE(S): 1.) 8 [place] Pol[place] catheter 8F 22cm PROCEDURE : 1. Antegrade percutaneous pyelogram. 2. Percutaneous ureteral stent placement. 3. Conscious sedation with continuous EKG and oximetry monitoring. The risks, benefits and alternatives to the procedure were explained and verbal and written consent w as obtained. The site was prepped in sterile fashion. Full sterile technique was used, including ca p, mask, sterile gloves and gown and a large sterile sheet. Hand hygiene and 2% chlorhexidine and/or betadine/alcohol prep was utilized per protocol for cutaneous antisepsis. The skin and subcutaneous tissues were infiltrated with local anesthetic solution. A small injection of contrast was administered into the collecting system. This demonstrated mild dil ation of the collecting system with complete occlusion of the distal left ureter. The existing nephro stomy tube was removed without difficulty. A 0.035 angle Glidewire and single renal glide catheter were manipulated from the collecting system d own to the bladder. The length was measured. A 22 cm internal ureteral stent was advanced over a 0.035 angle Glidewire an d deployed without difficulty. The ureteral stent above was placed over with the proximal portion within the renal pelvis and the di stal extent in the urinary bladder. The patient tolerated the procedure well and there were no compl ications. Conscious sedation was performed with the prescribed dosages and duration as above in the presence of an independent trained radiology nurse to assist in the monitoring of the patient. EKG and oximetry remained stable throughout the procedure. The patient tolerated the procedure well and there were no complications. The patient was sent to post anesthesia recovery in stable condition. CONCLUSION: Uncomplicated left ureteral stent placement as above. Luis Villalta MD on June 29, 2017 at 16:13 Board Certified Radiologist. This report was verified electronically.
== END 2017-06-28 14:20 | disposition home or self-care (01) ==
LOC: HROP 06:47 → HRIP 06:49 → HROP 14:20
PROVIDERS: ATTEND Urology
DX: Z43.6 Encounter for attention to other artificial openings of urinary tract (principal); N13.30 Unspecified hydronephrosis; C67.9 Malignant neoplasm of bladder, unspecified; Z85.038 Personal history of other malignant neoplasm of large intestine; Z85.850 Personal history of malignant neoplasm of thyroid; Z85.528 Personal history of other malignant neoplasm of kidney
CPT/HCPCS: 50384; 50389; 50435; 50693; 99152; 99153; C1729; C1769; C1887; C2617; J1642; J1956; J2250; J3010; J7030; Q9967

== ENCOUNTER 2017-07-24 03:06 | Inpatient (IN) | payer MEDICARE, BC ==
[~2017-07-24] VITALS: Ht 154.9 cm; Wt 71.4 kg
[~2017-07-24 03:06] MED LIST changes: -CYAN1000P IM
[2017-07-24 03:09] VITALS: BP 196/88; PULSE 82; RESP 20; TEMP 99.2; O2SAT 99
[2017-07-24] MEDS ORDERED: SODIUM CHLOR 0.9% 1000 ML INJ 1,000 ML IV ONE (05:30)
[2017-07-24] MEDS ORDERED: MORPHINE SULFATE 4 MG/ML INJ IV PUSH ONE (05:30)
[2017-07-24 05:41] LABS: BASOPHIL % 0.2 % (0.0-2.0); EOSINOPHIL # 0.2 TH/MM3 (0-0.4); EOSINOPHIL % 1.5 % (0.0-4.0); HEMATOCRIT 36.7 % (35.0-46.0); HEMOGLOBIN 12.1 GM/DL (11.6-15.3); LYMPH % 6.6 % (9.0-44.0); LYMPHOCYTE # 0.8 TH/MM3 (1.0-4.8); MEAN CELL VOLUME 91.2 FL (80.0-100.0); MEAN CORPUSCULAR HEMOGLOBIN 30.1 PG (27.0-34.0); MEAN PLATELET VOLUME 8.6 FL (7.0-11.0); MONOCYTE # 0.8 TH/MM3 (0-0.9); NEUT % 85.7 % (16.0-70.0); PLATELET COUNT 282 TH/MM3 (150-450); RED BLOOD COUNT 4.02 MIL/MM3 (4.00-5.30); WHITE BLOOD COUNT 12.9 TH/MM3 (4.0-11.0)
[2017-07-24 05:49] LABS: BACTERIA, URINE MANY /hpf; BILIRUBIN, URINE NEG (NEG); BLOOD, URINE LARGE (NEG); GLUCOSE,URINE NEG (NEG); KETONE, URINE NEG (NEG); NITRITE,URINE NEG (NEG); SQUAMOUS EPITHELIAL CELL URINE 4 /hpf (0-5); URINE COLOR YELLOW (YELLW/STRAW); URINE LEUKOCYTE ESTERASE LARGE (NEG); WHITE BLOOD CELL CLUMPS MANY
[2017-07-24 05:55] LABS: ALBUMIN 3.2 GM/DL (3.4-5.0); ALT (GPT) 18 U/L (10-53); AST (GOT) 20 U/L (15-37); BICARBONATE 20.7 MEQ/L (21.0-32.0); BLOOD UREA NITROGEN 32 MG/DL (7-18); CALCIUM 8.8 MG/DL (8.5-10.1); CHLORIDE 109 MEQ/L (98-107); CREATININE 2.78 MG/DL (0.50-1.00); GLOMERULAR FILTRATION RATE 17 ML/MIN (>89); GLUCOSE,RANDOM 98 MG/DL (74-106); SODIUM (NA) 140 MEQ/L (136-145)
[2017-07-24 05:58] LABS: ALKALINE PHOSPHATASE 100 U/L (45-117); TOTAL BILIRUBIN ADULT 0.3 MG/DL (0.2-1.0); TOTAL PROTEIN 7.9 GM/DL (6.4-8.2)
--- NOTE | 2017-07-24 06:59 | PD ---
HPI Chief Complaint: Flank/Kidney Pain Time Seen by Provider: 05:20 Travel History International Travel<30 days: No Contact w/Intl Traveler<30days: No Traveled to known affect area: No History of Present Illness HPI Patient is a 71-year-old female with a complicated urological history complaining of left flank pain. She has a right ureteral stent exiting to a bag. Her left stent was removed a week and a half ago. Patient has a history of chronic renal failure as well. 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)) Cardiovascular Problems: Yes (HX OF TACHYCARDIA) Chemotherapy: Yes (last chemo -/GETS HYDRATION THERAPY) Chest Pain: No Congestive Heart Failure: No COPD: No Cerebrovascular Accident: No Diabetes: No Diminished Hearing: No Endocrine: Yes Gastrointestinal Disorders: Yes (HX OF COLON CA, ILEOSTOMY/ DEHYDRATION, CHRONIC IRRITATION ILEOSTOMY SITE) GERD: No Genitourinary: Yes (HX BLADDER CANCER/"KIDNEY FUNCTION ABOUT 25% NORMAL", HOA NEPHROSTOMY TUBES) Headaches: No Hepatitis: No Hiatal Hernia: No Heparin Induced Thrombocytopen: No Hypertension: No Immune Disorder: No Implanted Vascular Access Dvce: Yes (RIGHT SIDED POWER PORT) Kidney Stones: No Medical other: Yes (ANEMIA) Musculoskeletal: Yes (C5-6 HNP, ARTHRITIS) Neurologic: No Psychiatric: Yes (HX OF DEPRESSION, ANXIETY) Reproductive: No Respiratory: No Immunizations Current: Yes Migraines: No Radiation Therapy: Yes () Renal Failure: Yes (HX OF DIALYSIS PRIOR TO NEPHROSTOMY TUBES ) Seizures: No Sickle Cell Disease: No Sleep Apnea: No Thyroid Disease: Yes (HX OF THYROID CA,TOTAL THYROIDECTOMY 2003) Ulcer: No ?: Not Menopausal: Yes : 0 Para: 0 Miscarriage: 0 : 0 Past Surgical History Abdominal Surgery: Yes (COLON CA SX/COLOSTOMY 1994,BOWEL OBSTRUCTION ", SACRAL MASS , CHEMO/RAD) AICD: No Appendectomy: Yes Arteriovenous Shunt: No Body Medical Devices: POWER PORT Cardiac Surgery: No Ear Surgery: No Endocrine Surgery: Yes (THYROIDECTOMY 2003, IMPLANTED PARATHYROID IN L UPPER ARM) Eye Surgery: No Genitourinary Surgery: Yes (URETER STENTS -->NEPHROSTOMY TUBES 2010) Gynecologic Surgery: Yes (HYSTERECTOMY) Hysterectomy: Yes Insulin Pump: No Joint Replacement: No Neurologic Surgery: No Oral Surgery: No Pacemaker: No Thoracic Surgery: No Other Surgery: Yes (SKIN CANCER REMOVAL, RIGHT SIDE PORT) Social History Alcohol Use: Yes (SOCIALLY) Tobacco Use: No Substance Use: No Allergies-Medications (Allergen,Severity, Reaction): Coded Allergies: No Known Allergies (Verified Allergy, Unknown, 07/24/17) Reported Meds & Prescriptions Reported Meds & Active Scripts Active Reported Sertraline (Sertraline HCl) 100 Mg Tab 100 Mg PO HS Levothyroxine (Levothyroxine Sodium) 125 Mcg Tab 125 Mcg PO DAILY [place] (Hydrocodone-Acetaminophen) 5-325 mg Tab 1 Tab PO Q4H PRN Estradiol 1 Mg Tab 1 Mg PO HS Calcitriol 0.25 Mcg Cap 0.25 Mcg PO DAILY Vitamin D3 (Cholecalciferol) 1,000 Unit Tab 5,000 Units PO DAILY Fentanyl Patch 72 HR (Fentanyl) 25 Mcg/Hr Patch 25 Mcg T-DERMAL Q72H Fentanyl Patch 72 HR (Fentanyl) 100 Mcg/Hr Patch 100 Mcg T-DERMAL Q72H Remove old patch when new one placed. Review of Systems Except as stated in HPI: all other systems reviewed are Neg General / Constitutional: No: Fever Respiratory: No: Cough Gastrointestinal: No: Nausea, Vomiting, Diarrhea, Abdominal Pain Genitourinary: Positive: Flank Pain (left) Physical Exam Narrative GENERAL: 71-year-old female in mild distress secondary to pain SKIN: Focused skin assessment warm/dry. HEAD: Atraumatic. Normocephalic. EYES: Pupils equal and round. No scleral icterus. No injection or drainage. ENT: No nasal bleeding or discharge. Mucous membranes pink and moist. NECK: Trachea midline. No JVD. CARDIOVASCULAR: Regular rate and rhythm. No murmur appreciated. RESPIRATORY: No accessory muscle use. Clear to auscultation. Breath sounds equal bilaterally. Port noted right chest GASTROINTESTINAL: Abdomen soft nontender left flank pain noted with palpation left CVA tenderness. MUSCULOSKELETAL: No obvious deformities. No clubbing. No cyanosis. No edema. Data Data Last Documented VS Vital Signs Date Time Temp Pulse Resp B/P (MAP) Pulse Ox O2 Delivery O2 Flow Rate FiO2 07/24/17 13:07 17 07/24/17 13:01 80 134/74 (94) 97 Room Air 07/24/17 07:43 99.5 Orders Orders Complete Blood Count With Diff (07/24/17 05:20) Comprehensive Metabolic Panel (07/24/17 05:20) Phosphorus (Po4) (07/24/17 05:20) Urinalysis - C+S If Indicated (07/24/17 05:20) Us Kidney/Renal/Bladder (07/24/17 ) Sodium Chlor 0.9% 1000 Ml Inj (Ns 1000 M (07/24/17 05:30) Morphine Inj (Morphine Inj) (07/24/17 05:30) Urine Culture (07/24/17 05:00) Ceftriaxone Inj (Rocephin Inj) (07/24/17 07:00) Ct Abd/Pel W/O Iv Contrast (07/24/17 ) Oxycodone-Acetamin 5-325 Mg (Percocet (07/24/17 10:45) Admit Order (Ed Use Only) (07/24/17 ) Labs Laboratory Tests Test 07/24/17 05:00 07/24/17 05:25 Urine Color YELLOW Urine Turbidity CLOUDY Urine pH 6.0 Urine Specific [place] 1.017 Urine Protein 300 mg/dL Urine Glucose (UA) NEG mg/dL Urine Ketones NEG mg/dL Urine Occult Blood LARGE Urine Nitrite NEG Urine Bilirubin NEG Urine Urobilinogen LESS THAN 2.0 MG/DL Urine Leukocyte Esterase LARGE Urine RBC /hpf Urine WBC /hpf Urine WBC Clumps MANY Urine Squamous Epithelial Cells 4 /hpf Urine Bacteria MANY /hpf Microscopic Urinalysis Comment CULTURE INDICATED White Blood Count 12.9 TH/MM3 Red Blood Count 4.02 MIL/MM3 Hemoglobin 12.1 GM/DL Hematocrit 36.7 % Mean Corpuscular Volume 91.2 FL Mean Corpuscular Hemoglobin 30.1 PG Mean Corpuscular Hemoglobin Concent 33.0 % Red Cell Distribution Width 14.0 % Platelet Count 282 TH/MM3 Mean Platelet Volume 8.6 FL Neutrophils (%) (Auto) 85.7 % Lymphocytes (%) (Auto) 6.6 % Monocytes (%) (Auto) 6.0 % Eosinophils (%) (Auto) 1.5 % Basophils (%) (Auto) 0.2 % Neutrophils # (Auto) 11.0 TH/MM3 Lymphocytes # (Auto) 0.8 TH/MM3 Monocytes # (Auto) 0.8 TH/MM3 Eosinophils # (Auto) 0.2 TH/MM3 Basophils # (Auto) 0.0 TH/MM3 CBC Comment DIFF FINAL Differential Comment Blood Urea Nitrogen 32 MG/DL Creatinine 2.78 MG/DL Random Glucose 98 MG/DL Total Protein 7.9 GM/DL Albumin 3.2 GM/DL Calcium Level 8.8 MG/DL Alkaline Phosphatase 100 U/L Aspartate Amino Transf (AST/SGOT) 20 U/L Alanine Aminotransferase (ALT/SGPT) 18 U/L Total Bilirubin 0.3 MG/DL Sodium Level 140 MEQ/L Potassium Level 4.7 MEQ/L Chloride Level 109 MEQ/L Carbon Dioxide Level 20.7 MEQ/L Anion Gap 10 MEQ/L Estimat Glomerular Filtration Rate 17 ML/MIN Phosphorus Level 4.2 MG/DL MDM Medical Decision Making Medical Screen Exam Complete: Yes Emergency Medical Condition: Yes Differential Diagnosis UTI, pyelonephritis, hydronephrosis Narrative Course Patient was seen and evaluated in the emergency department. She was found to have urinary tract infection and was awaiting ultrasound for evaluation of her left kidney. She was signed out at shift change awaiting disposition Diagnosis Primary Impression: UTI (urinary tract infection) Qualified Codes: N30.00 - Acute cystitis without hematuria Te Avila DO July 24, 2017 06:59
[2017-07-24] MEDS ORDERED: cefTRIAXone INJ 1,000 MG in SODIUM CHLORIDE 0.9% INJ 100 ML IV ONE (07:00)
[2017-07-24 07:43] VITALS: BP 186/82; PULSE 81; RESP 19; TEMP 99.5; O2SAT 96
--- NOTE | 2017-07-24 10:20 | RADRPT ---
EXAM DATE: 07/24/2017 9:32 AM EDT AGE/SEX: 71 years / Female INDICATIONS: Left flank pain. CLINICAL DATA: This is the patient's initial encounter. Patient reports that signs and symptoms have been present for 2 days and indicates a pain score of 4/10. MEDICAL/SURGICAL HISTORY: . Tachycardia. Thyroid cancer. Colon cancer. Bladder cancer. Righ t ureteral stent. Left ureteral stent removed >1 week ago. . Thyroidectomy. Hysterectomy. COMPARISON: [facility], CT ABDOMEN AND PELVIS W/O CONTRAST, 02/01/2017. . [facility], 7 2016-08-27 MULTIPLE PRIORS AVAILABLE MEASUREMENTS: Right Kidney:__8.7 x 4.2 x 4.0 cm Left Kidney:__11.7 x 5.3 x 4.9 cm FINDINGS: Right Kidney: There is evidence of hydronephrosis involving the right kidney. There is thinning of th e renal parenchyma throughout the right kidney. There is a right nephrostomy catheter in place. The p reviously noted right internal ureteral stent appears to been removed. Left Kidney: There is evidence of hydronephrosis involving the left kidney. There is thinning of the renal parenchyma. The previously noted left nephrostomy has been removed. However, there appears to b e a left internal ureteral stent in place. Bladder: Within normal limits given the degree of distension. There is a left ureteral stent in place within the urinary bladder. CONCLUSION: 1. There is hydronephrosis bilaterally, left greater than right with thinning of the renal parenchym a bilaterally. 2. Right nephrostomy catheter in place. 3. Left internal ureteral stent in place. Electronically signed by: Aajy Carlson MD 07/24/2017 10:19 AM EDT
[2017-07-24] MEDS ORDERED: oxyCODONE/ACETAMINOPHEN 5 MG/325 MG TAB PO ONE (10:45)
[2017-07-24 13:01] VITALS: BP 134/74; PULSE 80; RESP 17; O2SAT 97
--- NOTE | 2017-07-24 13:39 | RADRPT ---
EXAM DATE: 07/24/2017 1:17 PM EDT AGE/SEX: 71 years / Female INDICATIONS: Left flank pain today. CLINICAL DATA: This is the patient's initial encounter. Patient reports that signs and symptoms have been present for 1 day and indicates a pain score of 9/10. MEDICAL/SURGICAL HISTORY: Carcinoma, colon. Carcinoma, bladder. Renal failure, chronic. Appen dectomy. Hysterectomy. renal stent placement RADIATION DOSE: 7.67 CTDI (mGy) COMPARISON: May 02, 2016 CT the abdomen and pelvis. TECHNIQUE: Multiple contiguous axial images were obtained through the abdomen. Images were obtained using multiple row detector helical technique. Using dose reduction techniques, radiation dose was ke pt as low as reasonably achievable to obtain optimal diagnostic quality images. FINDINGS: Lower Lungs: The visualized lower lungs are clear. Liver: The liver has a homogeneous density without space-occupying lesion. There is no dilation of th e biliary tree. Gallbladder is unremarkable. Spleen: Homogeneous density without enlargement. Pancreas: Unremarkable without mass or calcification. Kidneys: The right kidney is atrophic and contains a nephrostomy tube. No hydronephrosis on this chiquis e. The left kidney shows moderate hydronephrosis despite a double-J stent. The double-J stent courses from the UPJ down to the urinary bladder. There is stranding surrounding the left kidney. No calculi . No perinephric fluid collections. The hydronephrosis is similar to the prior study where the left k idney did not have a double-J stent.. Adrenal Glands: Unremarkable. Aorta: The aorta and proximal iliac vessels are grossly unremarkable without aneurysmal dilation. Bowel/Mesentery: Prior colectomy with left lower quadrant colostomy. A moderate amount of stool seen throughout a normal caliber colon. Surgical clips are seen associated with the hepatic flexure. Smal l bowel and stomach are unremarkable. No free air or free fluid. High density material is seen involv ing the presacral space which is unchanged from the prior exam. There are some surgical clips associa azar with this material. The appearance is stable. Abdominal Wall: There is a small incisional hernia containing loops of small bowel. No obstruction or incarceration. Retroperitoneum: No evidence of adenopathy in the retrocrural, para-aortic, or deep pelvic regions. Bladder: Contours are smooth. Reproductive Organs: No abnormal masses or calcifications seen. Inguinal: The inguinal region is unremarkable without evidence of adenopathy. Bony Structures: Degenerative changes involving the lumbar spine and SI joints.. CONCLUSION: 1. Significant hydronephrosis on the left despite a double-J stent. This suggests stent dysfunction. 2. Atrophy of the right kidney with a right nephrostomy tube and no hydronephrosis on that side. 3. Postsurgical changes involving the colon with left lower quadrant colostomy. 4. Incisional hernia containing a loop of small bowel. No obstruction or incarceration observed. Electronically signed by: Erik Berry MD 07/24/2017 1:38 PM EDT
--- NOTE | 2017-07-24 15:31 | PD ---
Physical Exam Narrative Patient Dr. Sandoval. Please see his documentation for complete details. Briefly, patient is a 71-year-old female comes in complaining of left flank pain. She had a nephrostomy tube that was removed a week and a half ago, and a ureteral stent was placed at that time. She says she was feeling fine until last night when she developed the pain. Exam shows left CVA tenderness. Data Data Last Documented VS Vital Signs Date Time Temp Pulse Resp B/P (MAP) Pulse Ox O2 Delivery O2 Flow Rate FiO2 07/24/17 13:07 17 07/24/17 13:01 80 134/74 (94) 97 Room Air 07/24/17 07:43 99.5 Orders Orders Complete Blood Count With Diff (07/24/17 05:20) Comprehensive Metabolic Panel (07/24/17 05:20) Phosphorus (Po4) (07/24/17 05:20) Urinalysis - C+S If Indicated (07/24/17 05:20) Us Kidney/Renal/Bladder (07/24/17 ) Sodium Chlor 0.9% 1000 Ml Inj (Ns 1000 M (07/24/17 05:30) Morphine Inj (Morphine Inj) (07/24/17 05:30) Urine Culture (07/24/17 05:00) Ceftriaxone Inj (Rocephin Inj) (07/24/17 07:00) Ct Abd/Pel W/O Iv Contrast (07/24/17 ) Oxycodone-Acetamin 5-325 Mg (Percocet (07/24/17 10:45) Admit Order (Ed Use Only) (07/24/17 ) Labs Laboratory Tests Test 07/24/17 05:00 07/24/17 05:25 Urine Color YELLOW Urine Turbidity CLOUDY Urine pH 6.0 Urine Specific [place] 1.017 Urine Protein 300 mg/dL Urine Glucose (UA) NEG mg/dL Urine Ketones NEG mg/dL Urine Occult Blood LARGE Urine Nitrite NEG Urine Bilirubin NEG Urine Urobilinogen LESS THAN 2.0 MG/DL Urine Leukocyte Esterase LARGE Urine RBC /hpf Urine WBC /hpf Urine WBC Clumps MANY Urine Squamous Epithelial Cells 4 /hpf Urine Bacteria MANY /hpf Microscopic Urinalysis Comment CULTURE INDICATED White Blood Count 12.9 TH/MM3 Red Blood Count 4.02 MIL/MM3 Hemoglobin 12.1 GM/DL Hematocrit 36.7 % Mean Corpuscular Volume 91.2 FL Mean Corpuscular Hemoglobin 30.1 PG Mean Corpuscular Hemoglobin Concent 33.0 % Red Cell Distribution Width 14.0 % Platelet Count 282 TH/MM3 Mean Platelet Volume 8.6 FL Neutrophils (%) (Auto) 85.7 % Lymphocytes (%) (Auto) 6.6 % Monocytes (%) (Auto) 6.0 % Eosinophils (%) (Auto) 1.5 % Basophils (%) (Auto) 0.2 % Neutrophils # (Auto) 11.0 TH/MM3 Lymphocytes # (Auto) 0.8 TH/MM3 Monocytes # (Auto) 0.8 TH/MM3 Eosinophils # (Auto) 0.2 TH/MM3 Basophils # (Auto) 0.0 TH/MM3 CBC Comment DIFF FINAL Differential Comment Blood Urea Nitrogen 32 MG/DL Creatinine 2.78 MG/DL Random Glucose 98 MG/DL Total Protein 7.9 GM/DL Albumin 3.2 GM/DL Calcium Level 8.8 MG/DL Alkaline Phosphatase 100 U/L Aspartate Amino Transf (AST/SGOT) 20 U/L Alanine Aminotransferase (ALT/SGPT) 18 U/L Total Bilirubin 0.3 MG/DL Sodium Level 140 MEQ/L Potassium Level 4.7 MEQ/L Chloride Level 109 MEQ/L Carbon Dioxide Level 20.7 MEQ/L Anion Gap 10 MEQ/L Estimat Glomerular Filtration Rate 17 ML/MIN Phosphorus Level 4.2 MG/DL MDM Supervised Visit with ALBA: No Narrative Course Ultrasound, ordered by the previous provider shows hydronephrosis. Decision made to obtain CAT scan, which shows obstructive uropathy, likely malfunction of the ureteral stent. Last 24 hours Impressions Renal Ultrasound 07/24/17 Signed Impressions: CONCLUSION: 1. There is hydronephrosis bilaterally, left greater than right with thinning of the renal parenchyma bilaterally. 2. Right nephrostomy catheter in place. 3. Left internal ureteral stent in place. Abdomen/Pelvis CT 07/24/17 Signed Impressions: CONCLUSION: 1. Significant hydronephrosis on the left despite a double-J stent. This sugge sts stent dysfunction. 2. Atrophy of the right kidney with a right nephrostomy tube and no hydronephr osis on that side. 3. Postsurgical changes involving the colon with left lower quadrant colostomy . 4. Incisional hernia containing a loop of small bowel. No obstruction or incar ceration observed. I spoke with Dr. santillan of urology who suggests patient likely needs the nephrostomy tube replaced. Patient given Rocephin for her UTI. Admitted for further management. Diagnosis Primary Impression: UTI (urinary tract infection) Qualified Codes: N30.00 - Acute cystitis without hematuria Additional Impression: Obstructive uropathy Admitting Information Admitting Physician Requests: Admit Stacey Gipson MD July 24, 2017 15:31
[2017-07-24] MEDS ORDERED: BISACODYL 10 MG SUPP RECTAL PRN (15:45)
[2017-07-24] MEDS ORDERED: LACTULOSE SYRUP 20 GM/30 ML CUP PO PRN (15:45)
[2017-07-24] MEDS ORDERED: ACETAMINOPHEN/HYDROcodone 325 MG/10 MG TAB PO PRN (15:45)
[2017-07-24] MEDS ORDERED: MAGNESIUM HYDROXIDE SUSP 30 ML CUP PO PRN (15:45)
[2017-07-24] MEDS ORDERED: NALOXONE HCL 0.4 MG/ML AMP IV PUSH PRN (15:45)
[2017-07-24] MEDS ORDERED: SODIUM CHLORIDE 0.9% FLUSH 10 ML FLUSH IV FLUSH PRN (15:45)
[2017-07-24] MEDS ORDERED: SENNOSIDES 8.6 MG TAB PO PRN (15:45)
[2017-07-24] MEDS ORDERED: MORPHINE SULFATE 2 MG/ML SYRINGE IV PUSH PRN (15:45)
--- NOTE | 2017-07-24 16:06 | HHI.HP ---
[facility] Primary [facility] Physician Addy Oakley MD Admission Diagnosis obstructive uropathy, UTI Diagnoses: Travel History International Travel<30 Days: No Contact w/Intl Traveler <30 Da: No Traveled to Known Affected Are: No History of Present Illness Patient is a 71-year-old female with past medical history of colon cancer, status post chemotherapy, radiation, resection status post ileostomy, CKD, hypothyroidism, depression, bladder cancer, recurrent urinary tract infections, tachycardia, hyperlipidemia presented to the emergency room secondary to excruciating pain on her left flank. It started last night, took some hydrocodone which did not help much and by 11 PM she could not tolerate the pain. She felt very sick, had nausea and vomited a few times and called EMT. At that time her pain was 8-9 out of 10. She states the pain was on her left flank radiated to her mid back then around to the front of her "kidney area ". She denied any fevers or chills. She admits to a mild sinus drainage however is not bothering her at this time. She denies any cough or chest pain. She denies any abdominal pain. Last BM was yesterday. Currently her pain is better controlled. Review of Systems Except as stated in HPI: all other systems reviewed are Neg Past Family Social History Past Medical History Colorectal cancer diagnosed in 1994 with recurrence to the sacrum in 1996. She underwent chemotherapy, radiation and resection. Ileostomy was created in 2010 -hx of Bowel obstruction. -Chronic kidney disease secondary to scarring of ureters. -Thyroid cancer s/p thyroidectomy 2003- secondary Hypothyroidism. -Depression. -Skin cancer. -Bladder cancer. -Recurrent urinary tract infections -Tachycardia. -Previous dialysis 2010. -hyperlipidemia- diet controlled -Goes to her Dr. Singh_oncologist- regularly for IVF hydration on a regular basis Past Surgical History -Status post ileostomy revision 06/19/2014 -PORT-A-CATH insertion. -Status post exploratory lap, lysis of adhesions, resection of ileostomy and ileocolostomy July 11, 2014 -Left nephrostomy tube removal- most recent 2017 -multiple nephrostomy tube exchange -multiple Indwelling bilateral nephro-ureteral catheters exchanged secondary to bilateral ureteral strictures -Hysterectomy. -Appendectomy. Reported Medications Reported Meds & Active Scripts Active Reported Sertraline (Sertraline HCl) 100 Mg Tab 100 Mg PO HS Levothyroxine (Levothyroxine Sodium) 125 Mcg Tab 125 Mcg PO DAILY Myrtle (Hydrocodone-Acetaminophen) 5-325 mg Tab 1 Tab PO Q4H PRN Estradiol 1 Mg Tab 1 Mg PO HS Calcitriol 0.25 Mcg Cap 0.25 Mcg PO DAILY Vitamin D3 (Cholecalciferol) 1,000 Unit Tab 5,000 Units PO DAILY Fentanyl Patch 72 HR (Fentanyl) 25 Mcg/Hr Patch 25 Mcg T-DERMAL Q72H Fentanyl Patch 72 HR (Fentanyl) 100 Mcg/Hr Patch 100 Mcg T-DERMAL Q72H Remove old patch when new one placed. Allergies: Coded Allergies: No Known Allergies (Verified Allergy, Unknown, 07/24/17) Family History Father- CAD, alzheimers Uncle- from heart disease Mother- Healthy Social History Never smoked occasionally drinks alcohol no illegal drug use Physical Exam Vital Signs Vital Signs Date Time Temp Pulse Resp B/P (MAP) Pulse Ox O2 Delivery O2 Flow Rate FiO2 07/24/17 13:07 17 07/24/17 13:01 80 17 134/74 (94) 97 Room Air 07/24/17 07:43 99.5 81 19 186/82 (116) 96 Room Air 07/24/17 06:01 16 07/24/17 03:09 99.2 82 20 196/88 (124) 99 Physical Exam GENERAL: pleasant female, laying in bed, appears comfortable at this time. SKIN: No rashes, ecchymoses or lesions. Cool and dry. HEAD: Atraumatic. Normocephalic. No temporal or scalp tenderness. EYES: Pupils equal round and reactive. Extraocular motions intact. No scleral icterus. No injection or drainage. ENT: Nose without drainage. Throat without erythema, tonsillar hypertrophy or exudate. Uvula midline. Airway patent. NECK: Trachea midline. CARDIOVASCULAR: Regular rate and rhythm without murmurs RESPIRATORY: Clear to auscultation. Breath sounds equal bilaterally. No wheezes GASTROINTESTINAL: Well healed scar noted on her abdomen. Abdomen soft, non- tender, nondistended. ileostomy noted, patent. No CVA tenderness MUSCULOSKELETAL: Extremities without edema. moves extremities NEUROLOGICAL: Awake and alert. Cranial nerves II through XII grossly intact. Normal speech. Laboratory Laboratory Tests Test 07/24/17 05:00 07/24/17 05:25 Urine Color YELLOW Urine Turbidity CLOUDY Urine pH 6.0 Urine Specific [place] 1.017 Urine Protein 300 Urine Glucose (UA) NEG Urine Ketones NEG Urine Occult Blood LARGE Urine Nitrite NEG Urine Bilirubin NEG Urine Urobilinogen LESS THAN 2.0 Urine Leukocyte Esterase LARGE Urine RBC Urine WBC Urine WBC Clumps MANY Urine Squamous Epithelial Cells 4 Urine Bacteria MANY Microscopic Urinalysis Comment CULTURE INDICATED White Blood Count 12.9 Red Blood Count 4.02 Hemoglobin 12.1 Hematocrit 36.7 Mean Corpuscular Volume 91.2 Mean Corpuscular Hemoglobin 30.1 Mean Corpuscular Hemoglobin Concent 33.0 Red Cell Distribution Width 14.0 Platelet Count 282 Mean Platelet Volume 8.6 Neutrophils (%) (Auto) 85.7 Lymphocytes (%) (Auto) 6.6 Monocytes (%) (Auto) 6.0 Eosinophils (%) (Auto) 1.5 Basophils (%) (Auto) 0.2 Neutrophils # (Auto) 11.0 Lymphocytes # (Auto) 0.8 Monocytes # (Auto) 0.8 Eosinophils # (Auto) 0.2 Basophils # (Auto) 0.0 CBC Comment DIFF FINAL Differential Comment Blood Urea Nitrogen 32 Creatinine 2.78 Random Glucose 98 Total Protein 7.9 Albumin 3.2 Calcium Level 8.8 Alkaline Phosphatase 100 Aspartate Amino Transf (AST/SGOT) 20 Alanine Aminotransferase (ALT/SGPT) 18 Total Bilirubin 0.3 Sodium Level 140 Potassium Level 4.7 Chloride Level 109 Carbon Dioxide Level 20.7 Anion Gap 10 Estimat Glomerular Filtration Rate 17 Phosphorus Level 4.2 Date/Time Source Procedure Growth Status 07/24/17 05:00 Urine Clean Catch Urine Culture Pending Received Result Diagram: 07/24/17 0525 07/24/17 0525 Imaging Last Impressions Renal Ultrasound 07/24/17 0000 Signed Impressions: CONCLUSION: 1. There is hydronephrosis bilaterally, left greater than right with thinning of the renal parenchyma bilaterally. 2. Right nephrostomy catheter in place. 3. Left internal ureteral stent in place. Abdomen/Pelvis CT 07/24/17 0000 Signed Impressions: CONCLUSION: 1. Significant hydronephrosis on the left despite a double-J stent. This sugge sts stent dysfunction. 2. Atrophy of the right kidney with a right nephrostomy tube and no hydronephr osis on that side. 3. Postsurgical changes involving the colon with left lower quadrant colostomy . 4. Incisional hernia containing a loop of small bowel. No obstruction or incar ceration observed. Caprini VTE Risk Assessment Caprini VTE Risk Assessment: Mod/High Risk (score >= 2) Caprini Risk Assessment Model Point Value = 1 Point Value = 2 Point Value = 3 Point Value = 5 Age 41-60 Minor surgery BMI > 25 kg/m2 Swollen legs Varicose veins or History of unexplained or recurrent spontaneous Oral contraceptives or hormone replacement Sepsis (< 1 month) Serious lung disease, including pneumonia (< 1 month) Abnormal pulmonary function Acute myocardial infarction Congestive heart failure (< 1 month) History of inflammatory bowel disease Medical patient at bed rest Age 61-74 Arthroscopic surgery Major open surgery (> 45 min) Laparoscopic surgery (> 45 min) Malignancy Confined to bed (> 72 hours) Immobilizing plaster cast Central venous access Age >= 75 History of VTE Family history of VTE Factor V Leiden Prothrombin [id number] Lupus anticoagulant Anticardiolipin antibodies Elevated serum homocysteine Heparin-induced thrombocytopenia Other congenital or acquired thrombophilia Stroke (< 1 month) Elective arthroplasty Hip, pelvis, or leg fracture Acute spinal cord injury (< 1 month) Prophylaxis Regimen Total Risk Factor Score Risk Level Prophylaxis Regimen 0-1 Low Early ambulation 2 Moderate Order ONE of the following: *Sequential Compression Device (SCD) *Heparin 5000 units SQ BID 3-4 Higher Order ONE of the following medications: *Heparin 5000 units SQ TID *Enoxaparin/Lovenox 40 mg SQ daily (WT < 150 kg, CrCl > 30 mL/min) *Enoxaparin/Lovenox 30 mg SQ daily (WT < 150 kg, CrCl > 10-29 mL/min) *Enoxaparin/Lovenox 30 mg SQ BID (WT < 150 kg, CrCl > 30 mL/min) AND/OR *Sequential Compression Device (SCD) 5 or more Highest Order ONE of the following medications: *Heparin 5000 units SQ TID (Preferred with Epidurals) *Enoxaparin/Lovenox 40 mg SQ daily (WT < 150 kg, CrCl > 30 mL/min) *Enoxaparin/Lovenox 30 mg SQ daily (WT < 150 kg, CrCl > 10-29 mL/min) *Enoxaparin/Lovenox 30 mg SQ BID (WT < 150 kg, CrCl > 30 mL/min) AND *Sequential Compression Device (SCD) Assessment and Plan Assessment and Plan Acute left flank pain: Patient recently underwent left nephrostomy exchange for an internal ureteral stent on 06/28/17. They were unable to do the exchange on the right. To Dr. Villalta from IR perform the procedure. Patient presents today with acute left flank pain and CT of the abdomen and pelvis showed significant hydronephrosis on the left despite a double J stent concerning for stent dysfunction. I will place a consult to IR to evaluate the patient and make further recommendations. Per my conversation with ED physician, ED physician was able to speak with on-call urologist who recommended IR consult. Pain medication has been ordered. Bowel regimen in place. UTI: Patient does have a history of multiple recurrent urinary tract infections. Her U/A showed large leukocyte esterase, many WBC, many bacteria. Patient received a dose of Rocephin IV in the emergency room. I will continue IV Rocephin and follow-up urine cultures. N/V: zofran prn Acute on chronic CKD: IV fluids ordered. Cr 2.78 today. baseline 2.5 Other chronic medical problems, home medications have been resumed DVT proph: SCD Code Status full Discussed Condition With ER physician and patient. Brenda De Anda MD July 24, 2017 16:06
[2017-07-24] MEDS: SODIUM CHLOR 0.9% 1000 ML INJ 1,000 ML IV SCH (17:47)
[2017-07-24 20:00] VITALS: BP 153/81; PULSE 92; RESP 20; TEMP 98; O2SAT 98
[2017-07-24] MEDS ORDERED: SERTRALINE HCL 100 MG TAB PO SCH (21:00)
[2017-07-24] MEDS: SODIUM CHLORIDE 0.9% FLUSH 10 ML FLUSH IV FLUSH SCH (21:00)
[2017-07-24] MEDS ORDERED: ESTRADIOL 1 MG TAB PO SCH (21:00)
[2017-07-24] MEDS: DOCUSATE SODIUM 50 MG/SENNA 8.6 MG TAB PO SCH (21:00)
[2017-07-24] MEDS: ACETAMINOPHEN/HYDROcodone 325 MG/7.5 MG TAB PO PRN (21:42)
[2017-07-25] VITALS: BP 135/67; PULSE 74; RESP 18; TEMP 98.4; O2SAT 97
[2017-07-25] MEDS: SODIUM CHLOR 0.9% 1000 ML INJ 1,000 ML IV SCH ×3 (01:36→08:36)
[2017-07-25 04:00] VITALS: BP 136/82; PULSE 73; RESP 20; TEMP 97.7; O2SAT 97
[2017-07-25] MEDS ORDERED: LEVOTHYROXINE SODIUM 125 MCG TAB PO SCH (06:00)
[2017-07-25 06:06] LABS: AUTOMATED NEUTROPHIL # 6.9 TH/MM3 (1.8-7.7); BASOPHIL % 0.5 % (0.0-2.0); EOSINOPHIL # 0.2 TH/MM3 (0-0.4); EOSINOPHIL % 2.2 % (0.0-4.0); HEMATOCRIT 31.4 % (35.0-46.0); HEMOGLOBIN 10.5 GM/DL (11.6-15.3); LYMPH % 11.4 % (9.0-44.0); MEAN CORPUSCULAR HEMOGLOBIN 30.4 PG (27.0-34.0); MEAN CORPUSCULAR HGB CONC 33.4 % (32.0-36.0); MONO % 8.1 % (0.0-8.0); MONOCYTE # 0.7 TH/MM3 (0-0.9); NEUT % 77.8 % (16.0-70.0); PLATELET COUNT 248 TH/MM3 (150-450); RED BLOOD COUNT 3.45 MIL/MM3 (4.00-5.30); WHITE BLOOD COUNT 8.8 TH/MM3 (4.0-11.0)
[2017-07-25 06:34] LABS: BICARBONATE 23.4 MEQ/L (21.0-32.0); CALCIUM 8.4 MG/DL (8.5-10.1); CREATININE 2.32 MG/DL (0.50-1.00)
[2017-07-25] MEDS ORDERED: cefTRIAXone INJ 1,000 MG in SODIUM CHLORIDE 0.9% INJ 100 ML IV SCH (08:00)
[2017-07-25] MEDS: SODIUM CHLORIDE 0.9% FLUSH 10 ML FLUSH IV FLUSH SCH (08:18)
[2017-07-25] MEDS: DOCUSATE SODIUM 50 MG/SENNA 8.6 MG TAB PO SCH (08:20)
[2017-07-25 08:27] VITALS: BP 165/78; PULSE 83; RESP 18; TEMP 98.4; O2SAT 98
--- NOTE | 2017-07-25 08:49 | HHI.PR ---
Subjective Remarks in no acute distress. pain is better today and looks comfortable. no other new complaints. Objective Vitals Vital Signs Date Time Temp Pulse Resp B/P (MAP) Pulse Ox O2 Delivery O2 Flow Rate FiO2 07/25/17 04:00 97.7 73 20 136/82 (100) 97 07/25/17 00:00 98.4 74 18 135/67 (89) 97 07/24/17 20:40 Room Air 07/24/17 20:00 98.0 92 20 153/81 (105) 98 07/24/17 17:35 07/24/17 13:07 17 07/24/17 13:01 80 17 134/74 (94) 97 Room Air I/O 07/24/17 07/24/17 07/24/17 07/25/17 07/25/17 07/25/17 07:00 15:00 23:00 07:00 15:00 23:00 Intake Total 1100 ml 1542 ml Output Total 250 ml Balance 1100 ml 1292 ml Intake Oral 480 ml IV Total 1100 ml 1062 ml Output Drainage Total 250 ml # Voids 1 3 # Bowel Movements 2 Result Diagram: 07/25/17 0545 07/25/17 0545 Imaging Last Impressions Renal Ultrasound 07/24/17 0000 Signed Impressions: CONCLUSION: 1. There is hydronephrosis bilaterally, left greater than right with thinning of the renal parenchyma bilaterally. 2. Right nephrostomy catheter in place. 3. Left internal ureteral stent in place. Abdomen/Pelvis CT 07/24/17 0000 Signed Impressions: CONCLUSION: 1. Significant hydronephrosis on the left despite a double-J stent. This sugge sts stent dysfunction. 2. Atrophy of the right kidney with a right nephrostomy tube and no hydronephr osis on that side. 3. Postsurgical changes involving the colon with left lower quadrant colostomy . 4. Incisional hernia containing a loop of small bowel. No obstruction or incar ceration observed. Objective Remarks GENERAL: This is a well-nourished, well-developed patient, in no apparent distress. CARDIOVASCULAR: Regular rate and regular rhythm without murmurs, gallops, or rubs. RESPIRATORY: Clear to auscultation. Breath sounds equal bilaterally. No wheezes , rales, or rhonchi. GASTROINTESTINAL: Abdomen soft, non-tender, nondistended. Normal, active bowel sounds MUSCULOSKELETAL: Extremities without clubbing, cyanosis, or edema. NEURO: Alert & Oriented x4 to person, place, time, situation. Moves all ext x4 Medications and IVs Inpatient Medications Acetaminophen/ Hydrocodone Bitart (Nichols 7.5-325 Mg) 1 tab Q4H PRN PO PAIN SCALE 6 to 10 Last administered on 07/24/17at 21:42; Start 07/24/17 at 15:45 Acetaminophen/ Hydrocodone Bitart (Nichols 10-325 Mg) 1 tab Q4H PRN PO PAIN SCALE 7 TO 10; Start 07/24/17 at 15:45; Stop 07/24/17 at 18:42; Status DC Bisacodyl (Dulcolax Supp) 10 mg DAILY PRN RECTAL SEVERE CONSITIPATION; Start at 15:45 Calcitriol (Rocaltrol) 0.25 mcg DAILY PO Last administered on 07/25/17at 08:17; Start 07/25/17 at 09:00 Ceftriaxone Sodium 1000 mg/ Sodium Chloride 100 ml @ 200 mls/hr Q24H IV Last administered on 07/25/17at 08:17; Start 07/25/17 at 08:00 Cholecalciferol (Vitamin D3) 5,000 units DAILY PO Last administered on at 08:17; Start 07/25/17 at 09:00 Estradiol (Estradiol) 1 mg HS PO Last administered on 07/24/17at 21:37; Start at 21:00 Fentanyl (Duragesic 25 Mcg Patch.72 Hr) 25 patch Q72H T-DERMAL ; Start at 18:00 Fentanyl (Duragesic 100 Mcg Patch.72 Hr) 1 patch Q72H T-DERMAL ; Start 07/25/17 at 18:00 Lactulose (Lactulose Liq) 30 ml DAILY PRN PO SEVERE CONSITIPATION; Start at 15:45 Levothyroxine Sodium (Synthroid) 125 mcg DAILY@0600 PO Last administered on at 05:41; Start 07/25/17 at 06:00 Magnesium Hydroxide (Milk Of Magnesia Liq) 30 ml Q12H PRN PO Mild constipation ; Start 07/24/17 at 15:45 Morphine Sulfate (Morphine Inj) 1 mg Q4H PRN IV PUSH BREAKTHROUGH PAIN; Start 07/24/17 at 15:45 Naloxone HCl (Narcan Inj) 0.4 mg UNSCH PRN IV PUSH SEE LABEL COMMENTS; Start at 15:45 Oxycodone/ Acetaminophen (Percocet 5-325 Mg) 1 tab ONCE ONCE PO Last administered on 07/24/17at 10:51; Start 07/24/17 at 10:45; Stop 07/24/17 at 10:46 ; Status DC Senna/Docusate Sodium (Bonnie-Colace) 1 tab BID PO ; Start 07/24/17 at 21:00 Sennosides (Senokot) 17.2 mg Q12H PRN PO Moderate constipation; Start 07/24/17 at 15:45 Sertraline HCl (Zoloft) 100 mg HS PO Last administered on 07/24/17at 21:37; Start 07/24/17 at 21:00 Sodium Chloride (NS Flush) 2 ml BID IV FLUSH Last administered on 07/25/17at 08: 18; Start 07/24/17 at 21:00 A/P Assessment and Plan A/P Acute left flank pain: Patient recently underwent left nephrostomy exchange for an internal ureteral stent on 06/28/17. They were unable to do the exchange on the right. CT of the abdomen and pelvis showed significant hydronephrosis on the left despite a double J stent concerning for stent dysfunction. IR consulted. Per the previous hospitalist conversation with ED physician, ED physician was able to speak with on-call urologist who recommended IR consult. Pain medication has been ordered. Bowel regimen in place. UTI: Patient does have a history of multiple recurrent urinary tract infections. Her U/A showed large leukocyte esterase, many WBC, many bacteria. Patient received a dose of Rocephin IV in the emergency room. continue IV Rocephin and follow-up urine cultures. N/V: zofran prn Acute on chronic CKD: IV fluids ordered. Cr 2.78 today. baseline 2.5 Other chronic medical problems, home medications have been resumed DVT proph: SCD Discharge Planning dc home after IR intervention has been completed. Fabricio Moss MD July 25, 2017 08:49
[2017-07-25] MEDS ORDERED: CALCITRIOL 0.25 MCG CAP PO SCH (09:00)
[2017-07-25] MEDS ORDERED: CHOLECALCIFEROL (VIT D3) 1000 UNIT TAB PO SCH (09:00)
[2017-07-25 12:40] VITALS: BP 154/82; PULSE 74; RESP 18; TEMP 97.9; O2SAT 96
[2017-07-25] MEDS: ACETAMINOPHEN/HYDROcodone 325 MG/7.5 MG TAB PO PRN (15:01)
[2017-07-25 16:20] VITALS: BP 144/73; PULSE 70; RESP 18; TEMP 98.2; O2SAT 95
[2017-07-25] MEDS ORDERED: fentaNYL 100 MCG/HR PATCH T-DERMAL SCH (18:00)
[2017-07-25] MEDS ORDERED: fentaNYL 25 MCG/HR PATCH T-DERMAL SCH ×2 (18:00)
[2017-07-25] MEDS ORDERED: CIPR-9 PO (19:14)
--- NOTE | 2017-07-25 19:15 | MB ---
cc: Allan Resendiz MD DATE: 07/25/2017 REASON FOR CONSULTATION: 1. Left hydronephrosis, status post antegrade left ureteral stent insertion. 2. History of bilateral ureteral obstruction secondary to extrinsic compression from radiation changes due to colon cancer. HISTORY OF PRESENT ILLNESS: The patient is a 71-year-old female with a history of colon cancer, status post resection with ileostomy, chemotherapy and radiation, who presented to the emergency room yesterday secondary to excruciating pain in her left flank, 9/10 intensity, described as sharp, stabbing. She said it started last night, took some hydrocodone, which did not help and by 11:00 p.m., she could not tolerate the pain. She felt very sick, had nausea, vomited and called shuttler car. Said the pain which had started in her left flank had radiated to her mid back, around to the front of her kidney area. She denies any fevers, chills, dysuria, hematuria. During evaluation, the patient was found to have a creatinine of 2.7, up from her baseline of 2. A CT abdomen and pelvis without contrast was performed, which showed a right nephrostomy tube in place, but left hydronephrosis with a stent in her proximal ureter/renal pelvis all the way down into her bladder. Due to these findings and worried for a nonfunctioning stent, the patient was admitted and urology was consulted. Overnight, her pain has significantly improved. She has minimal pain at this time. She has only taken 1 pain pill since last night. Her creatinine had gone back tender paper machine to baseline, down to 2.1. She denies any nausea, vomiting, fevers, chills at this time. She has been living with nephrostomy tubes in her kidneys for the last 4 years. They were recently changed out back on 06/[address] nj. He was unable to exchange the right nephrostomy tube for a stent, but was able to do the left side. She is a patient of ____, who she sees on a regular basis due to history of recurrent urinary tract infections and a questionable history of bladder cancer. She denies history of kidney stones, however. REVIEW OF SYSTEMS: See HPI. All other systems reviewed, otherwise negative. PAST MEDICAL HISTORY: Significant for colorectal cancer in 1994, with recurrence to the sacrum in 1996. History of bowel obstruction, skin cancer, recurrent urinary tract infections, hyperlipidemia, depression, thyroid cancer, chronic kidney disease. PAST SURGICAL HISTORY: Status post ileostomy, status post thyroidectomy, status post exploratory laparotomy, lysis of adhesions, resection of ileostomy and ileal colostomy in June 2014, bilateral nephrostomy tube exchanges, hysterectomy, appendectomy. MEDICATIONS: Include estradiol 1 mg p.o. at bedtime, calcitriol, fentanyl patch, Synthroid, sertraline. ALLERGIES: NO KNOWN DRUG ALLERGIES. FAMILY HISTORY: Coronary artery disease and Alzheimer's. No evidence of urolithiasis or genitourinary malignancy. SOCIAL HISTORY: She has never smoked. Occasionally drinks alcohol. Denies illicit drug use. PHYSICAL EXAMINATION: VITAL SIGNS: Temperature 97.9, pulse 74, respirations 18, BP 154/82, sating 96% on room air. GENERAL: She is alert and oriented x 3, no apparent distress, pleasant and cooperative lady, who appears her stated age. HEENT: Head: Normocephalic, atraumatic. Eyes: No scleral icterus. Extraocular muscles intact. Mouth: Mucous membranes pink, warm and moist. NECK: Supple. Trachea is midline. No JVD. SKIN: No ulcers, rashes are visible. LUNGS: Clear to auscultation bilaterally. HEART: Regular rate and rhythm. No murmurs, gallops or rubs. ABDOMEN: Soft, nontender, nondistended, positive bowel sounds. Ileostomy appears to be pink and viable. GENITOURINARY: No CVA tenderness bilaterally. PELVIC EXAM: Not indicated at this time. EXTREMITIES: Nontender. No clubbing, cyanosis or edema. SKIN: No ulcers, rashes are visible. NEUROLOGIC: Cranial nerves 2-12 intact. Strength 5/5 all 4 extremities. PSYCHIATRIC: Normal affect, answers questions appropriately. LABORATORY DATA: White count 8.8, hemoglobin 10.5, hematocrit 31.4, platelet count 248. Sodium 144, potassium 4.5, chloride 23.4, BUN 30, creatinine 2.32, glucose 96. Urine showed large blood, large leukocyte esterase, with many white blood cell clumps. IMAGING: CT abdomen and pelvis without contrast images are reviewed and interpreted by myself. She has a right nephrostomy tube placed, which looks in correct position. Her left, she does have left hydronephrosis, with the proximal portion of the stent in her proximal ureter, extending from her lower pelvis with the distal portion extending half way across her bladder. ASSESSMENT: The patient is a 71-year-old female with a history of colon cancer, status post ileostomy, chemotherapy and radiation, with bilateral ureteral obstruction, with a right nephrostomy tube and status post left antegrade stent insertion with left nephrostomy tube removal, presents with left flank pain and acute on chronic renal failure. PLAN: Since her creatinine has returned back to baseline and she is completely asymptomatic, recommend conservative management. At this time, she can be discharged home and followup with ____ as an outpatient. However, if her symptoms worsen or return, the best long-term solution for her is to have the nephrostomy tube replaced on the left side, as stents tend to become obstructed long-term when they are placed for extrinsic compression. If a nephrostomy tube is needed, this could be placed by Interventional Radiology and the stent can be removed by Urology at a later date. Thank you for this consult. Please call with any questions. Available as needed. MD MELISA Jara/ADRIANNA/allen , 04:21 PM , 05:25 PM
== END 2017-07-25 19:43 | disposition home or self-care (01) | DRG 699 ==
LOC: NEPC 03:06 → NEDA 15:38 → N04A 17:39
PROVIDERS: ADMIT Internal Medicine; ATTEND Internal Medicine
DX: T83.123A Displacement of other urinary stents, initial encounter (principal); N13.1 Hydronephrosis with ureteral stricture, not elsewhere classified; N17.9 Acute kidney failure, unspecified; N39.0 Urinary tract infection, site not specified; M50.222 Other cervical disc displacement at C5-C6 level; F32.9 Major depressive disorder, single episode, unspecified; R00.0 Tachycardia, unspecified; F41.9 Anxiety disorder, unspecified; N26.1 Atrophy of kidney (terminal); E78.5 Hyperlipidemia, unspecified; N18.9 Chronic kidney disease, unspecified; E89.0 Postprocedural hypothyroidism; M19.90 Unspecified osteoarthritis, unspecified site; Z85.850 Personal history of malignant neoplasm of thyroid; Z92.21 Personal history of antineoplastic chemotherapy; Z85.51 Personal history of malignant neoplasm of bladder; Z85.828 Personal history of other malignant neoplasm of skin; Z85.048 Personal history of other malignant neoplasm of rectum, rectosigmoid junction, and anus; Z87.440 Personal history of urinary (tract) infections; Z90.710 Acquired absence of both cervix and uterus; Z93.3 Colostomy status; Z82.49 Family history of ischemic heart disease and other diseases of the circulatory system; Z82.0 Family history of epilepsy and other diseases of the nervous system
CPT/HCPCS: 74176; 76775; 80048; 80053; 81001; 84100; 85025; 87086; 96361; 96365; 96366; 96375; J0696; J2270; J7030

== ENCOUNTER 2017-08-02 03:47 | Inpatient (IN) | payer MEDICARE, BC ==
[~2017-08-02] VITALS: Ht 154.9 cm; Wt 67.0 kg
[2017-08-02] VITALS (13 sets, daily range): BP systolic 141–202; BP diastolic 70–93; PULSE 63–78; RESP 15–19; TEMP 98–100.1; O2SAT 95–100
[~2017-08-02 03:47] MED LIST changes: +CIPR-9 PO
[2017-08-02] MEDS ORDERED: SODIUM CHLORID 0.9% 500 ML INJ 500 ML IV ONE ×2 (05:15→06:15)
[2017-08-02] MEDS ORDERED: MORPHINE SULFATE 4 MG/ML INJ IV PUSH ONE (05:15)
[2017-08-02] MEDS ORDERED: PROCHLORPERAZINE INJ 10 MG/2 ML VIAL IV PUSH ONE (05:15)
--- NOTE | 2017-08-02 05:24 | RADRPT ---
EXAM DATE: 08/02/2017 4:53 AM EDT AGE/SEX: 71 years / Female INDICATIONS: Cough. CLINICAL DATA: This is the patient's initial encounter. Patient reports that signs and symptoms have been present for 2 days and indicates a pain score of 0/10. MEDICAL/SURGICAL HISTORY: . Bladder carcinoma. Colon cancer. Thyroid cancer. Renal cancer. . T hyroidectomy. Appendectomy. Hysterectomy. Ileostomy. Nephrostomy tubes. COMPARISON: [facility] – [place], CHEST SINGLE AP, 02/11/2013. . FINDINGS: A single AP view of the chest demonstrates the lungs to be symmetrically aerated without evidence of mass, infiltrate or effusion. Hyperaeration of both lung amado. The cardiomediastinal contours are u nremarkable. Osseous structures are intact. Right-sided central line in place. No significant lynn es compared to the prior study. CONCLUSION: No acute intrathoracic disease. Stable examination. Electronically signed by: Ajay Carlson MD 08/02/2017 5:23 AM EDT
[2017-08-02 05:25] LABS: AUTOMATED NEUTROPHIL # 9.7 TH/MM3 (1.8-7.7); BASOPHIL % 0.3 % (0.0-2.0); EOSINOPHIL # 0.2 TH/MM3 (0-0.4); HEMATOCRIT 32.8 % (35.0-46.0); HEMOGLOBIN 10.5 GM/DL (11.6-15.3); LYMPH % 6.1 % (9.0-44.0); LYMPHOCYTE # 0.7 TH/MM3 (1.0-4.8); MEAN CELL VOLUME 92.4 FL (80.0-100.0); MEAN CORPUSCULAR HEMOGLOBIN 29.7 PG (27.0-34.0); MEAN CORPUSCULAR HGB CONC 32.2 % (32.0-36.0); MEAN PLATELET VOLUME 8.5 FL (7.0-11.0); MONOCYTE # 0.7 TH/MM3 (0-0.9); NEUT % 85.6 % (16.0-70.0); PLATELET COUNT 272 TH/MM3 (150-450); RED BLOOD COUNT 3.55 MIL/MM3 (4.00-5.30); RED CELL DISTRIBUTION WIDTH 14.6 % (11.6-17.2); WHITE BLOOD COUNT 11.4 TH/MM3 (4.0-11.0)
[2017-08-02 05:27] LABS: AMORPHOUS SEDIMENT, URINE RARE; BACTERIA, URINE MOD /hpf; BILIRUBIN, URINE NEG (NEG); BLOOD, URINE TRACE (NEG); GLUCOSE,URINE NEG (NEG); HYALINE CAST, URINE 2 /lpf (RARE); KETONE, URINE NEG (NEG); MUCUS URINE FEW /lpf (OCC); NITRITE,URINE NEG (NEG); RENAL EPITHELIAL CELLS 2 /hpf; URINE COLOR YELLOW (YELLW/STRAW); URINE LEUKOCYTE ESTERASE LARGE (NEG)
[2017-08-02 05:37] LABS: PROTHROMBIN TIME - PATIENT 10.2 SEC (9.8-11.6)
[2017-08-02 05:50] LABS: ALBUMIN 2.9 GM/DL (3.4-5.0); AST (GOT) 12 U/L (15-37); BLOOD UREA NITROGEN 38 MG/DL (7-18); CALCIUM 8.8 MG/DL (8.5-10.1); CHLORIDE 113 MEQ/L (98-107); GLOMERULAR FILTRATION RATE 13 ML/MIN (>89); GLUCOSE,RANDOM 102 MG/DL (74-106); SODIUM (NA) 141 MEQ/L (136-145)
[2017-08-02 05:51] LABS: ALT (GPT) 13 U/L (10-53)
[2017-08-02 05:53] LABS: ALKALINE PHOSPHATASE 88 U/L (45-117); TOTAL BILIRUBIN ADULT 0.3 MG/DL (0.2-1.0); TOTAL PROTEIN 7.5 GM/DL (6.4-8.2)
[2017-08-02] MEDS ORDERED: HYDROmorphone HCL PF 2 MG/ML VIAL IV PUSH ONE (06:30)
--- NOTE | 2017-08-02 07:28 | PD ---
HPI Chief Complaint: Flank/Kidney Pain Time Seen by Provider: 04:34 Travel History International Travel<30 days: No Contact w/Intl Traveler<30days: No Traveled to known affect area: No History of Present Illness HPI The patient is a 71 year old female who presents to the [facility] emergency department with a history of left-sided flank pain that she reports began again at 9 PM last night. The patient reports that she has a long standing history of ureteral obstruction related to a prior history of radiation therapy that caused radiation damage to her ureters. The patient has had multiple ureteral stents placed as well as nephrostomy tubes placed bilaterally. The patient a month ago elected to have her left nephrostomy tube removed and a stent replaced as she reports that she was tired of having 3 bags to maintain. She reports that at that time she had a colostomy bag related to her partial colectomy from colon cancer, and nephrostomy bags bilaterally. She reports that her urologist agreed to the plan. She reports that she is followed by Dr. Kitchen as an outpatient. She reports that since then she has had recurrent problems. She reports that approximately a week ago she was admitted related to obstruction of the left ureter. She reports that the obstruction seemed to resolve on its own and she did follow-up with her urologist again as an outpatient. She was told that she would likely need the nephrostomy replaced on the left. She reports that since yesterday she has had decreased urine output from her urethra. She reports that she continues to have urine output into the right nephrostomy bag. She reports that she has been moving her bowels regularly. She denies having any known fevers. She reports that she is on a fentanyl patch for her pain as well as hydrocodone, however her pain has been severe in spite of this regimen. On review of systems otherwise, the patient denies having any cough or congestion, neck pain , chest pain, shortness of breath, abdominal pain, diarrhea, urinary symptoms, or neurologic symptoms. The patient reports that she has not had an appetite for the last 24-36 hours. She reports that she has had nausea without vomiting. She did go to her oncologist on yesterday for her regularly scheduled IV fluids. She reports that she receives an IV fluid bolus on Tuesday , Tuesday, and Tuesday. [facility] Past Medical History Narrative Medical The patient's past medical history is significant for colorectal cancer originally diagnosed in 1994 with metastasis to the sacrum status post chemotherapy and radiation therapy. The patient had an ileostomy in 2010. The patient has a prior history of bowel obstruction, chronic renal insufficiency related to scarring of her ureters, history of thyroid cancer status post thyroidectomy in 2003, depression, history of skin cancer, history of bladder cancer, history of recurrent urinary tract infections, tachycardia, and hyperlipidemia. Arthritis: No Asthma: No Autoimmune Disease: No Blood Disorders: No Anxiety: No Depression: Yes Heart Rhythm Problems: Yes (TACHYCARDIA) Cancer: Yes (THYROID AND COLORECTAL, BLADDER, SACRAL MASS(RECURRENCE FROM COLORECTAL)) Cardiovascular Problems: Yes (HX OF TACHYCARDIA) Chemotherapy: Yes (last chemo -/GETS HYDRATION THERAPY) Chest Pain: No Congestive Heart Failure: No COPD: No Cerebrovascular Accident: No Diabetes: No Diminished Hearing: No Endocrine: Yes Gastrointestinal Disorders: Yes (HX OF COLON CA, ILEOSTOMY/ DEHYDRATION, CHRONIC IRRITATION ILEOSTOMY SITE) GERD: No Genitourinary: Yes (HX BLADDER CANCER/"KIDNEY FUNCTION ABOUT 25% NORMAL", HOA NEPHROSTOMY TUBES) Headaches: No Hepatitis: No Hiatal Hernia: No Heparin Induced Thrombocytopen: No Hypertension: No Immune Disorder: No Implanted Vascular Access Dvce: Yes (RIGHT SIDED POWER PORT) Kidney Stones: No Medical other: Yes (ANEMIA) Musculoskeletal: Yes (C5-6 HNP, ARTHRITIS) Neurologic: No Psychiatric: Yes (HX OF DEPRESSION, ANXIETY) Reproductive: No Respiratory: No Immunizations Current: Yes Migraines: No Radiation Therapy: Yes () Renal Failure: Yes (HX OF DIALYSIS PRIOR TO NEPHROSTOMY TUBES ) Seizures: No Sickle Cell Disease: No Sleep Apnea: No Thyroid Disease: Yes (HX OF THYROID CA,TOTAL THYROIDECTOMY 2003) Ulcer: No Menopausal: Yes : 0 Para: 0 Miscarriage: 0 : 0 Past Surgical History Narrative Surgical The patient's past surgical history is significant for Gnreat-i-Tbbr placement, colectomy with ileostomy, ileostomy revision, multiple nephrostomy tube placements, ureteral stent placement, hysterectomy, appendectomy. Abdominal Surgery: Yes (COLON CA SX/COLOSTOMY 1994,BOWEL OBSTRUCTION ", SACRAL MASS , CHEMO/RAD) AICD: No Appendectomy: Yes Arteriovenous Shunt: No Body Medical Devices: POWER PORT Cardiac Surgery: No Ear Surgery: No Endocrine Surgery: Yes (THYROIDECTOMY 2004, IMPLANTED PARATHYROID IN L UPPER ARM) Eye Surgery: No Genitourinary Surgery: Yes (URETER STENTS -->NEPHROSTOMY TUBES 2010) Gynecologic Surgery: Yes (HYSTERECTOMY) Hysterectomy: Yes Insulin Pump: No Joint Replacement: No Neurologic Surgery: No Oral Surgery: No Pacemaker: No Thoracic Surgery: No Other Surgery: Yes (SKIN CANCER REMOVAL, RIGHT SIDE PORT) Social History Alcohol Use: Yes (SOCIALLY) Tobacco Use: No Substance Use: No Allergies-Medications (Allergen,Severity, Reaction): Coded Allergies: No Known Allergies (Verified Allergy, Unknown, 08/02/17) Reported Meds & Prescriptions Reported Meds & Active Scripts Active Reported Sertraline (Sertraline HCl) 100 Mg Tab 100 Mg PO HS Levothyroxine (Levothyroxine Sodium) 125 Mcg Tab 125 Mcg PO DAILY [place] (Hydrocodone-Acetaminophen) 5-325 mg Tab 1 Tab PO Q4H PRN Estradiol 1 Mg Tab 1 Mg PO HS Calcitriol 0.25 Mcg Cap 0.25 Mcg PO DAILY Vitamin D3 (Cholecalciferol) 1,000 Unit Tab 5,000 Units PO DAILY Fentanyl Patch 72 HR (Fentanyl) 25 Mcg/Hr Patch 25 Mcg T-DERMAL Q72H Fentanyl Patch 72 HR (Fentanyl) 100 Mcg/Hr Patch 100 Mcg T-DERMAL Q72H Remove old patch when new one placed. Review of Systems Except as stated in HPI: all other systems reviewed are Neg General / Constitutional: No: Fever Eyes: No: Visual changes HENT: No: Headaches Cardiovascular: No: Chest Pain or Discomfort Respiratory: No: Shortness of Breath Gastrointestinal: Positive: Nausea, No: Vomiting, Diarrhea, Abdominal Pain, Changes in Bowel Habits, Indigestion, Loss of Appetite Genitourinary: Positive: Decreased Urinary Output, Flank Pain (Left side), No: Dysuria Musculoskeletal: No: Pain Skin: No Rash Neurologic: No: Weakness Psychiatric: No: Depression Endocrine: No: Polydipsia Hematologic/Lymphatic: No: Easy Bruising Physical Exam Narrative General: The patient is a well-developed well-nourished female, uncomfortable appearing on examination related to left flank pain. Head and Neck exam: Head is normocephalic atraumatic. Eyes: EOMI, pupils are equal round and reactive to light. Nose: Midline septum with pink mucous membranes Mouth: Dentition unremarkable. Moist mucus membranes. Posterior oropharynx is not erythematous. No tonsillar hypertrophy. Uvula midline. Airway patent. Neck: No palpable lymphadenopathy. No nuchal rigidity. No thyromegaly. Cardiovascular: Regular rate and rhythm without murmurs, gallops, or rubs. No pulse deficit to the extremities on simultaneous auscultation and palpation of her radial artery. Lungs: Clear to auscultation bilaterally. No wheezes, rhonchi, or rales. Abdomen: Soft, without tenderness to palpation in all 4 quadrants of the abdomen. No guarding, rebound, or rigidity. Normal bowel sounds are audible. No tenderness on palpation of McBurney's point. Negative Saeed sign. The patient has a colostomy bag in place in the left side of the abdomen. This is in good repair. There is no surrounding erythema or abnormal drainage. Extremities: No clubbing, cyanosis, or edema. 2+ pulses in all 4 extremities. No calf tenderness on palpation. Back: No spinous process tenderness to palpation. Left-sided CVA tenderness on palpation. The patient has a nephrostomy tube in place on the right side that appears to be in good repair without any surrounding erythema or drainage. The patient has urine output into the right nephrostomy bag. Neurologic Exam: Grossly nonfocal. Skin Exam: No rash noted. Intact skin that is warm and dry. Data Data Last Documented VS Vital Signs Date Time Temp Pulse Resp B/P (MAP) Pulse Ox O2 Delivery O2 Flow Rate FiO2 08/02/17 07:30 98.3 78 16 202/93 (129) 100 Room Air Orders Orders Complete Blood Count With Diff (08/02/17 04:35) Comprehensive Metabolic Panel (08/02/17 04:35) Prothrombin Time / Inr (Pt) (08/02/17 04:35) Act Partial Throm Time (Ptt) (08/02/17 04:35) Lipase (08/02/17 04:35) Urinalysis - C+S If Indicated (08/02/17 04:35) Chest, Single Ap (08/02/17 04:35) Iv Access Insert/Monitor (08/02/17 04:35) Ecg Monitoring (08/02/17 04:35) Oximetry (08/02/17 04:35) Sodium Chlorid 0.9% 500 Ml Inj (Ns 500 M (08/02/17 05:15) Morphine Inj (Morphine Inj) (08/02/17 05:15) Prochlorperazine Inj (Compazine Inj) (08/02/17 05:15) Urine Culture (08/02/17 04:45) Act Partial Throm Time (Ptt) (08/02/17 06:09) Sodium Chlorid 0.9% 500 Ml Inj (Ns 500 M (08/02/17 06:15) Hydromorphone Pf Inj (Dilaudid Pf Inj) (08/02/17 06:30) Ondansetron Odt (Zofran Odt) (08/02/17 07:45) Ceftriaxone Inj (Rocephin Inj) (08/02/17 08:00) Hydromorphone Pf Inj (Dilaudid Pf Inj) (08/02/17 08:30) Admit Order (Ed Use Only) (08/02/17 08:28) Ceftriaxone Inj (Rocephin Inj) (08/03/17 09:00) Nephrostomy (08/02/17 06:13) Labs Laboratory Tests Test 08/02/17 04:45 08/02/17 05:00 08/02/17 06:30 Urine Color YELLOW Urine Turbidity HAZY Urine pH 6.0 Urine Specific [place] 1.011 Urine Protein TRACE mg/dL Urine Glucose (UA) NEG mg/dL Urine Ketones NEG mg/dL Urine Occult Blood TRACE Urine Nitrite NEG Urine Bilirubin NEG Urine Urobilinogen LESS THAN 2.0 MG/DL Urine Leukocyte Esterase LARGE Urine RBC 8 /hpf Urine WBC 31 /hpf Urine Renal Epithelial Cells 2 /hpf Urine Amorphous Sediment RARE Urine Bacteria MOD /hpf Urine Hyaline Casts 2 /lpf Urine Mucus FEW /lpf Microscopic Urinalysis Comment CULTURE INDICATED White Blood Count 11.4 TH/MM3 Red Blood Count 3.55 MIL/MM3 Hemoglobin 10.5 GM/DL Hematocrit 32.8 % Mean Corpuscular Volume 92.4 FL Mean Corpuscular Hemoglobin 29.7 PG Mean Corpuscular Hemoglobin Concent 32.2 % Red Cell Distribution Width 14.6 % Platelet Count 272 TH/MM3 Mean Platelet Volume 8.5 FL Neutrophils (%) (Auto) 85.6 % Lymphocytes (%) (Auto) 6.1 % Monocytes (%) (Auto) 6.0 % Eosinophils (%) (Auto) 2.0 % Basophils (%) (Auto) 0.3 % Neutrophils # (Auto) 9.7 TH/MM3 Lymphocytes # (Auto) 0.7 TH/MM3 Monocytes # (Auto) 0.7 TH/MM3 Eosinophils # (Auto) 0.2 TH/MM3 Basophils # (Auto) 0.0 TH/MM3 CBC Comment DIFF FINAL Differential Comment Prothrombin Time 10.2 SEC Prothromb Time International Ratio 1.0 RATIO Activated Partial Thromboplast Time 138.2 SEC 30.6 SEC Blood Urea Nitrogen 38 MG/DL Creatinine 3.40 MG/DL Random Glucose 102 MG/DL Total Protein 7.5 GM/DL Albumin 2.9 GM/DL Calcium Level 8.8 MG/DL Alkaline Phosphatase 88 U/L Aspartate Amino Transf (AST/SGOT) 12 U/L Alanine Aminotransferase (ALT/SGPT) 13 U/L Total Bilirubin 0.3 MG/DL Sodium Level 141 MEQ/L Potassium Level 4.1 MEQ/L Chloride Level 113 MEQ/L Carbon Dioxide Level 13.0 MEQ/L Anion Gap 15 MEQ/L Estimat Glomerular Filtration Rate 13 ML/MIN Lipase 151 U/L MDM Medical Decision Making Medical Screen Exam Complete: Yes Emergency Medical Condition: Yes Medical Record Reviewed: Yes Differential Diagnosis Recurrent obstruction of left ureteral stent, versus acute on chronic renal failure, versus pyelonephritis Narrative Course During the course of the patient's emergency department visit, the patient's history, examination, and differential diagnosis were reviewed with the patient. The patient was placed on a school bus monitor with oximetry and frequent blood pressure monitoring. The patient had IV access obtained and blood work sent for analysis. The patient was initially provided hydromorphone 0.5 mg IV for pain, Zofran 4 mg IV for nausea, and a normal saline IV fluid bolus. The patient's laboratory studies were reviewed and remarkable for a white count of 11.4, hemoglobin 10.5, platelets 272 with neutrophils 85.6, CMP was remarkable for chloride of 113, CO2 13, BUN 38, creatinine 3.40 which is increased compared to previous values, AST 12, albumin 2.9. Given the patient' s elevated creatinine compared to her last value at this facility there is a concern again for recurrent obstruction of her left ureteral stent. An ultrasound was ordered of the patient's kidneys to further evaluate. Interventional radiology was consulted for nephrostomy tube placement on the left. Urinalysis showed large leukocyte esterase 8 RBCs 31 WBCs, moderate bacteria. Rocephin 1 g was given IV. Radiology studies were reviewed and remarkable for a chest x-ray that showed no acute intrathoracic disease. The patient's ultrasound was pending at the conclusion of my shift. The patient 's case was checked out to the oncoming emergency physician to disposition the patient based on the conclusion of her workup. I anticipate that the patient will require admission for acute on chronic renal failure and pain control. Diagnosis Primary Impression: Obstructive uropathy Additional Impression: Acute on chronic renal failure Qualified Codes: N17.9 - Acute kidney failure, unspecified; N18.9 - Chronic kidney disease, unspecified Amalia Villegas MD Aug 02, 2017 07:28
[2017-08-02] MEDS ORDERED: ONDANSETRON ODT 4 MG TAB PO ONE (07:45)
[2017-08-02] MEDS ORDERED: cefTRIAXone INJ 1,000 MG in SODIUM CHLORIDE 0.9% INJ 100 ML IV ONE (08:00)
--- NOTE | 2017-08-02 08:11 | PD ---
Physical Exam Date Seen by Provider: Aug 02, 2017 Data Data Last Documented VS Vital Signs Date Time Temp Pulse Resp B/P (MAP) Pulse Ox O2 Delivery O2 Flow Rate FiO2 08/02/17 04:14 98.7 70 18 198/91 (126) 99 Room Air Orders Orders Complete Blood Count With Diff (08/02/17 04:35) Comprehensive Metabolic Panel (08/02/17 04:35) Prothrombin Time / Inr (Pt) (08/02/17 04:35) Act Partial Throm Time (Ptt) (08/02/17 04:35) Lipase (08/02/17 04:35) Urinalysis - C+S If Indicated (08/02/17 04:35) Chest, Single Ap (08/02/17 04:35) Iv Access Insert/Monitor (08/02/17 04:35) Ecg Monitoring (08/02/17 04:35) Oximetry (08/02/17 04:35) Sodium Chlorid 0.9% 500 Ml Inj (Ns 500 M (08/02/17 05:15) Morphine Inj (Morphine Inj) (08/02/17 05:15) Prochlorperazine Inj (Compazine Inj) (08/02/17 05:15) Urine Culture (08/02/17 04:45) Act Partial Throm Time (Ptt) (08/02/17 06:09) Invasive Rad Dept Consult (08/02/17 06:13) Sodium Chlorid 0.9% 500 Ml Inj (Ns 500 M (08/02/17 06:15) Hydromorphone Pf Inj (Dilaudid Pf Inj) (08/02/17 06:30) Ondansetron Odt (Zofran Odt) (08/02/17 07:45) Ceftriaxone Inj (Rocephin Inj) (08/02/17 08:00) Ceftriaxone Inj (Rocephin Inj) (08/02/17 08:30) Us Kidney/Renal/Bladder (08/02/17 ) Hydromorphone Pf Inj (Dilaudid Pf Inj) (08/02/17 08:30) Admit Order (Ed Use Only) (08/02/17 08:28) Labs Laboratory Tests Test 08/02/17 04:45 08/02/17 05:00 08/02/17 06:30 Urine Color YELLOW Urine Turbidity HAZY Urine pH 6.0 Urine Specific [place] 1.011 Urine Protein TRACE mg/dL Urine Glucose (UA) NEG mg/dL Urine Ketones NEG mg/dL Urine Occult Blood TRACE Urine Nitrite NEG Urine Bilirubin NEG Urine Urobilinogen LESS THAN 2.0 MG/DL Urine Leukocyte Esterase LARGE Urine RBC 8 /hpf Urine WBC 31 /hpf Urine Renal Epithelial Cells 2 /hpf Urine Amorphous Sediment RARE Urine Bacteria MOD /hpf Urine Hyaline Casts 2 /lpf Urine Mucus FEW /lpf Microscopic Urinalysis Comment CULTURE INDICATED White Blood Count 11.4 TH/MM3 Red Blood Count 3.55 MIL/MM3 Hemoglobin 10.5 GM/DL Hematocrit 32.8 % Mean Corpuscular Volume 92.4 FL Mean Corpuscular Hemoglobin 29.7 PG Mean Corpuscular Hemoglobin Concent 32.2 % Red Cell Distribution Width 14.6 % Platelet Count 272 TH/MM3 Mean Platelet Volume 8.5 FL Neutrophils (%) (Auto) 85.6 % Lymphocytes (%) (Auto) 6.1 % Monocytes (%) (Auto) 6.0 % Eosinophils (%) (Auto) 2.0 % Basophils (%) (Auto) 0.3 % Neutrophils # (Auto) 9.7 TH/MM3 Lymphocytes # (Auto) 0.7 TH/MM3 Monocytes # (Auto) 0.7 TH/MM3 Eosinophils # (Auto) 0.2 TH/MM3 Basophils # (Auto) 0.0 TH/MM3 CBC Comment DIFF FINAL Differential Comment Prothrombin Time 10.2 SEC Prothromb Time International Ratio 1.0 RATIO Activated Partial Thromboplast Time 138.2 SEC 30.6 SEC Blood Urea Nitrogen 38 MG/DL Creatinine 3.40 MG/DL Random Glucose 102 MG/DL Total Protein 7.5 GM/DL Albumin 2.9 GM/DL Calcium Level 8.8 MG/DL Alkaline Phosphatase 88 U/L Aspartate Amino Transf (AST/SGOT) 12 U/L Alanine Aminotransferase (ALT/SGPT) 13 U/L Total Bilirubin 0.3 MG/DL Sodium Level 141 MEQ/L Potassium Level 4.1 MEQ/L Chloride Level 113 MEQ/L Carbon Dioxide Level 13.0 MEQ/L Anion Gap 15 MEQ/L Estimat Glomerular Filtration Rate 13 ML/MIN Lipase 151 U/L [facility] Medical Record Reviewed: Yes Supervised Visit with ALBA: No Interpretation(s) Vital Signs Date Time Temp Pulse Resp B/P (MAP) Pulse Ox O2 Delivery O2 Flow Rate FiO2 08/02/17 04:14 98.7 70 18 198/91 (126) 99 Room Air 08/02/17 03:59 98.6 71 18 202/91 (128) 99 Laboratory Tests Test 08/02/17 04:45 08/02/17 05:00 08/02/17 06:30 Urine Color YELLOW (YELLW/STRAW) Urine Turbidity HAZY (CLEAR) Urine pH 6.0 (5.0-8.5) Urine Specific [place] 1.011 (1.002-1.035) Urine Protein TRACE mg/dL (NEG-TRACE) Urine Glucose (UA) NEG mg/dL (NEG) Urine Ketones NEG mg/dL (NEG) Urine Occult Blood TRACE (NEG) Urine Nitrite NEG (NEG) Urine Bilirubin NEG (NEG) Urine Urobilinogen LESS THAN 2.0 MG/DL (LESS Urine Leukocyte Esterase LARGE (NEG) Urine RBC 8 /hpf (0-3) Urine WBC 31 /hpf (0-5) Urine Renal Epithelial Cells 2 /hpf (NONE) Urine Amorphous Sediment RARE Urine Bacteria MOD /hpf (NONE) Urine Hyaline Casts 2 /lpf (RARE) Urine Mucus FEW /lpf (OCC) Microscopic Urinalysis Comment CULTURE INDICATED White Blood Count 11.4 TH/MM3 (4.0-11.0) Red Blood Count 3.55 MIL/MM3 (4.00-5.30) Hemoglobin 10.5 GM/DL (11.6-15.3) Hematocrit 32.8 % (35.0-46.0) Mean Corpuscular Volume 92.4 FL (80.0-100.0) Mean Corpuscular Hemoglobin 29.7 PG (27.0-34.0) Mean Corpuscular Hemoglobin Concent 32.2 % (32.0-36.0) Red Cell Distribution Width 14.6 % (11.6-17.2) Platelet Count 272 TH/MM3 (150-450) Mean Platelet Volume 8.5 FL (7.0-11.0) Neutrophils (%) (Auto) 85.6 % (16.0-70.0) Lymphocytes (%) (Auto) 6.1 % (9.0-44.0) Monocytes (%) (Auto) 6.0 % (0.0-8.0) Eosinophils (%) (Auto) 2.0 % (0.0-4.0) Basophils (%) (Auto) 0.3 % (0.0-2.0) Neutrophils # (Auto) 9.7 TH/MM3 (1.8-7.7) Lymphocytes # (Auto) 0.7 TH/MM3 (1.0-4.8) Monocytes # (Auto) 0.7 TH/MM3 (0-0.9) Eosinophils # (Auto) 0.2 TH/MM3 (0-0.4) Basophils # (Auto) 0.0 TH/MM3 (0-0.2) CBC Comment DIFF FINAL Differential Comment Prothrombin Time 10.2 SEC (9.8-11.6) Prothromb Time International Ratio 1.0 RATIO Activated Partial Thromboplast Time 138.2 SEC (24.3-30.1) 30.6 SEC (24.3-30.1) Blood Urea Nitrogen 38 MG/DL (7-18) Creatinine 3.40 MG/DL (0.50-1.00) Random Glucose 102 MG/DL (74-106) Total Protein 7.5 GM/DL (6.4-8.2) Albumin 2.9 GM/DL (3.4-5.0) Calcium Level 8.8 MG/DL (8.5-10.1) Alkaline Phosphatase 88 U/L (45-117) Aspartate Amino Transf (AST/SGOT) 12 U/L (15-37) Alanine Aminotransferase (ALT/SGPT) 13 U/L (10-53) Total Bilirubin 0.3 MG/DL (0.2-1.0) Sodium Level 141 MEQ/L (136-145) Potassium Level 4.1 MEQ/L (3.5-5.1) Chloride Level 113 MEQ/L (98-107) Carbon Dioxide Level 13.0 MEQ/L (21.0-32.0) Anion Gap 15 MEQ/L (5-15) Estimat Glomerular Filtration Rate 13 ML/MIN (>89) Lipase 151 U/L (73-393) Microbiology Date/Time Source Procedure Growth Status 08/02/17 04:45 Urine Clean Catch Urine Culture Pending Received Differential Diagnosis UTI, chronic kidney disease, renal failure, renal obstruction Narrative Course Patient was sent out to me by Dr. Villegas at change of shift, please see her chart for full hpi Patient is a 71-year-old female with history of left-sided flank pain which began last night around 9 PM. Patient has history of ureteral obstruction related to radiation therapy, she has subsequently had multiple ureteral stents as well as nephrostomy tubes placed. Patient was recently seen here and admitted to the hospital -at that time, she had her left nephrostomy tube removed as she has bilateral nephrostomies as well as colectomy bag from her colon cancer. Patient did see Dr. Resendiz with urology during last admission as she did have renal insufficience. Patient's renal function did improve with IV fluids, patient was ultimately sent home. If renal function worsened, plan was to have a urostomy placed to left kidney. CBC & BMP Diagram 08/02/17 05:00 Total Protein 7.5, Albumin 2.9 L, Calcium Level 8.8, Alkaline Phosphatase 88, Aspartate Amino Transf (AST/SGOT) 12 L, Alanine Aminotransferase (ALT/SGPT) 13, Total Bilirubin 0.3 Patient's BUN/creatinine currently 38/3.40. This was elevated from July 25, 2017 , when creatinine was 2.32. Initial PTT 138 - repeat ptt 30.8 (initial ptt most likely a lab error) UA is positive for large leuk esterase, 31 white blood cells, moderate bacteria -urine culture was sent. Previous urine cultures were evaluated, patient with no recent positive UAs, patient will be started on IV Rocephin. Given her renal failure as well as her kidney infection, patient will be admitted to the hospital for further management. A renal ultrasound was ordered - patient refusing study at this time due to pain - she did receive a dose of Dilaudid prior to the study. IR has been consulted for urostomy placement by Dr. Villegas Patient is agreeable to admission to hospital. Case reviewed with Dr. Oviedo who accepts pt to her service Physician Communication Physician Communication Case reviewed with Dr. Oviedo who accepts pt to service Diagnosis Primary Impression: Acute renal failure Qualified Codes: N17.9 - Acute kidney failure, unspecified Additional Impressions: UTI (urinary tract infection) Qualified Codes: N30.01 - Acute cystitis with hematuria Anemia Qualified Codes: D64.9 - Anemia, unspecified Admitting Information Admitting Physician Requests: Admit Elizabeth March DO Aug 02, 2017 08:11
[2017-08-02] MEDS ORDERED: HYDROmorphone HCL PF 1 MG/ML VIAL IVS ONE (08:30)
[2017-08-02] MEDS ORDERED: ACETAMINOPHEN 325 MG TAB PO PRN (08:45)
[2017-08-02] MEDS ORDERED: LACTULOSE SYRUP 20 GM/30 ML CUP PO PRN (08:45)
[2017-08-02] MEDS ORDERED: MAGNESIUM HYDROXIDE SUSP 30 ML CUP PO PRN (08:45)
[2017-08-02] MEDS ORDERED: SODIUM CHLORIDE 0.9% FLUSH 10 ML FLUSH IV FLUSH PRN (08:45)
[2017-08-02] MEDS ORDERED: PROCHLORPERAZINE 25 MG SUPP RECTAL PRN (08:45)
[2017-08-02] MEDS ORDERED: NALOXONE HCL 0.4 MG/ML AMP IV PUSH PRN ×2 (08:45)
[2017-08-02] MEDS ORDERED: ENOXAPARIN SODIUM 30 MG/0.3 ML SYRINGE SQ SCH (08:45)
[2017-08-02] MEDS ORDERED: BISACODYL 10 MG SUPP RECTAL PRN (08:45)
[2017-08-02] MEDS ORDERED: SENNOSIDES 8.6 MG TAB PO PRN (08:45)
[2017-08-02] MEDS ORDERED: ACETAMINOPHEN/HYDROcodone 325 MG/5 MG TAB PO PRN (08:45)
[2017-08-02] MEDS: DOCUSATE SODIUM 50 MG/SENNA 8.6 MG TAB PO SCH ×2 (09:00→20:16)
[2017-08-02] MEDS ORDERED: SODIUM CHLOR 0.9% 1000 ML INJ 1,000 ML IV SCH (09:00)
[2017-08-02] MEDS: SODIUM CHLORIDE 0.9% FLUSH 10 ML FLUSH IV FLUSH SCH ×2 (10:05→20:19)
--- NOTE | 2017-08-02 10:53 | PD.PN.STU ---
Subjective Remarks HPI: The pt is a 71-year-old female who presented to the ED this morning for L sided flank pain that began last night around 9pm. The pain is sharp, severe and rated 10/10. It radiates anteriorly through her abdomen. She has a longstanding history of chronic kidney disease and ureteral obstruction after radiation for colorectal cancer w/ sacral metastasis in 1994. The pain is accompanied by nausea, decreased appetite, and dry heaving. She also reports decreased urine output per urethra, denies blood in the urine. She has not eaten since yesterday morning and fluid intake is also decreased. She has had multiple ureteral stents and bilateral nephrostomy tubes in the past. She elected to have the L nephrostomy tube removed 1 month ago. A ureteral stent was replaced at this time. She presented to the ED last week with similar symptoms and was told she had L ureteral obstruction that may require nephrostomy tube replacement in the future. Symptoms improved and she was discharged, but the same type of pain recurred last night and prompted her visit to the ED. She is followed by Dr. Kitchen for urology. She has history of colectomy and ileostomy with placement of colostomy bag. She has had no trouble with BMs. Denies fever, chills, weakness, headache, shortness of breath, cough, diarrhea, constipation. Reports diffuse abdominal tenderness which she attributes to dry heaving. She has chronic severe pain and is prescribed hydrocodone and fentanyl patch but the pain is persistent and severeor neurologic symptoms. She went to her oncologist on yesterday for regularly scheduled IV fluid bolus, which she receives on Tuesday, Tuesday, and Fridays. 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 Thyroid cancer, s/p thyroidectomy (2003) Depression Skin cancer Bladder cancer Recurrent UTIs Hyperlipidemia Anemia Arthritis Dialysis prior to nephrostomy tubes Surgical Hx: Colectomy with ileostomy Ileostomy revision 2011 Total thyroidectomy 2004 Multiple nephrostomy tubes Ureteral stent placement R sided [id number] placement Radiation 1990s Hysterectomy Appendectomy Skin ca removal Social Hx: Never tobacco use Social EtOH use Never illicit drug use Family Hx: No known family history of CA Father with CAD and Alzheimer's Medications: Sertraline (Sertraline HCl) 100 Mg Tab 100 Mg PO HS Levothyroxine (Levothyroxine Sodium) 125 Mcg Tab 125 Mcg PO DAILY [place] (Hydrocodone-Acetaminophen) 5-325 mg Tab 1 Tab PO Q4H PRN Estradiol 1 Mg Tab 1 Mg PO HS Vitamin D3 (Cholecalciferol) 1,000 Unit Tab 5,000 Units PO DAILY Fentanyl Patch 72 HR (Fentanyl) 25 Mcg/Hr Patch 25 Mcg T-DERMAL Q72H Fentanyl Patch 72 HR (Fentanyl) 100 Mcg/Hr Patch 100 Mcg T-DERMAL Q72H Allergies: No known allergies Objective Vitals Vital Signs Date Time Temp Pulse Resp B/P (MAP) Pulse Ox O2 Delivery O2 Flow Rate FiO2 08/02/17 07:30 98.3 78 16 202/93 (129) 100 Room Air 08/02/17 07:30 98.3 78 16 202/93 (129) 100 Room Air 08/02/17 07:30 78 16 08/02/17 04:14 98.7 70 18 198/91 (126) 99 Room Air 08/02/17 03:59 98.6 71 18 202/91 (128) 99 I/O 08/01/17 08/01/17 08/01/17 08/02/17 08/02/17 08/02/17 07:00 15:00 23:00 07:00 15:00 23:00 Intake Total 600 ml Balance 600 ml Intake IV Total 600 ml # Voids 1 Result Diagram: 08/02/17 0500 08/02/17 0500 Other Results Laboratory Tests Test 08/02/17 04:45 08/02/17 05:00 08/02/17 06:30 Urine Color YELLOW Urine Turbidity HAZY Urine pH 6.0 Urine Specific [place] 1.011 Urine Protein TRACE mg/dL Urine Glucose (UA) NEG mg/dL Urine Ketones NEG mg/dL Urine Occult Blood TRACE Urine Nitrite NEG Urine Bilirubin NEG Urine Urobilinogen LESS THAN 2.0 MG/DL Urine Leukocyte Esterase LARGE Urine RBC 8 /hpf Urine WBC 31 /hpf Urine Renal Epithelial Cells 2 /hpf Urine Amorphous Sediment RARE Urine Bacteria MOD /hpf Urine Hyaline Casts 2 /lpf Urine Mucus FEW /lpf Microscopic Urinalysis Comment CULTURE INDICATED White Blood Count 11.4 TH/MM3 Red Blood Count 3.55 MIL/MM3 Hemoglobin 10.5 GM/DL Hematocrit 32.8 % Mean Corpuscular Volume 92.4 FL Mean Corpuscular Hemoglobin 29.7 PG Mean Corpuscular Hemoglobin Concent 32.2 % Red Cell Distribution Width 14.6 % Platelet Count 272 TH/MM3 Mean Platelet Volume 8.5 FL Neutrophils (%) (Auto) 85.6 % Lymphocytes (%) (Auto) 6.1 % Monocytes (%) (Auto) 6.0 % Eosinophils (%) (Auto) 2.0 % Basophils (%) (Auto) 0.3 % Neutrophils # (Auto) 9.7 TH/MM3 Lymphocytes # (Auto) 0.7 TH/MM3 Monocytes # (Auto) 0.7 TH/MM3 Eosinophils # (Auto) 0.2 TH/MM3 Basophils # (Auto) 0.0 TH/MM3 CBC Comment DIFF FINAL Differential Comment Prothrombin Time 10.2 SEC Prothromb Time International Ratio 1.0 RATIO Activated Partial Thromboplast Time 138.2 SEC 30.6 SEC Blood Urea Nitrogen 38 MG/DL Creatinine 3.40 MG/DL Random Glucose 102 MG/DL Total Protein 7.5 GM/DL Albumin 2.9 GM/DL Calcium Level 8.8 MG/DL Alkaline Phosphatase 88 U/L Aspartate Amino Transf (AST/SGOT) 12 U/L Alanine Aminotransferase (ALT/SGPT) 13 U/L Total Bilirubin 0.3 MG/DL Sodium Level 141 MEQ/L Potassium Level 4.1 MEQ/L Chloride Level 113 MEQ/L Carbon Dioxide Level 13.0 MEQ/L Anion Gap 15 MEQ/L Estimat Glomerular Filtration Rate 13 ML/MIN Lipase 151 U/L Imaging Last 24 hours Impressions Chest X-Ray 08/02/17 1462 Signed Impressions: CONCLUSION: No acute intrathoracic disease. Stable examination. Objective Remarks GENERAL: Well-nourished, well-developed elderly female in obvious pain but NAD. SKIN: Warm and dry. HEENT: Normocephalic, atraumatic. No scleral icterus. No injection or drainage. Mucosa pink and moist. NECK: Supple, trachea midline. No JVD or lymphadenopathy. CARDIOVASCULAR: Regular rate and rhythm without murmurs,rubs, or gallops. RESPIRATORY: No accessory muscle use. Breath sounds equal bilaterally. No wheezes, rhonchi, crackles. GASTROINTESTINAL: Abdomen soft, nondistended, diffusely tender to palpation. No guarding or rebound. Bowel sounds present. Colostomy bag present in LLQ with no surrounding erythema. MSK: Extremities with no cyanosis, clubbing, or edema. DP pulses palpable bilaterally. CVA tenderness with light palpation over L flank. NEUROLOGICAL: Awake, alert, and oriented x 3. Speech normal. CN II-XII grossly intact. A/P Assessment and Plan A/P: 71-year-old female with L flank pain since last night around 9 PM. She has an extensive history of chronic renal insufficiency with ureteral obstruction after radiation therapy. She has been treated with multiple ureteral stents and nephrostomy tubes in the past, with most recent intervention 1 month ago when nephrostomy was removed and stent was replaced. She is followed by Dr. Kitchen for outpatient management. She was seen in the ED last week for similar pain and hydronephrosis. She was seen by Dr. Resendiz, who recommended conservative management for the time being and future placement of L nephrostomy tube if renal function worsened and symptoms returned. At the time, intervention was not warranted as renal function improved with IV fluids and she was discharged home. Problem List: 1. Acute renal failure on chronic renal insufficiency Patient's BUN/creatinine is currently 38/ 3.40. This was elevated from July 25, 2017, when creatinine was 2.32. Pt was started on IV fluids in the ED She is prescribed [place] and fentanyl patch for pain as an outpatient. Will continue home pain medications at the time She was given Dilaudid in the ED. Ordered morphine as well IR consulted for urostomy placement by Dr. Villegas Renal U/S was ordered but patient refuses study at this time due to pain. Imaging at most recent ED visit showed hydronephrosis. Consult nephrology Continue to monitor renal function 2. Urinary tract infection WBC elevated at 11.4 UA positive for large leukocyte esterase, WBC 31, moderate bacteria. Pending urine culture No recent positive UAs Started on IV Rocephin in the ED, will continue and await results of urine culture 3. Nausea Likely related to severity of pain and acute renal failure Ordered zofran and compazine 4. Anemia Hb 10.5 L, Hct 32.8 L This appears to be at patient's baseline from prior hospital visits. No indication for transfusion, and patient denies blood in the urine or stool. Will continue to monitor 5. Elevated BP BP at time of admission ~200/90 Patient denies any history of HTN and does not take BP medications. In comparison to recent hospital visits, this is abnormally elevated and likely due to a combination of pain and possibly renal function. Monitor vitals Will start hydralazine Heart healthy diet Lovenox and SCDs for DVT prevention Continue home medications: sertraline, levothyroxine, estradiol, Vitamin D Case discussed at length with Miss Lobato Jesenia MS IV . Note above reviewed and agree with above. Luis Alfredo Ba M3 Aug 02, 2017 10:53 Estrella Oviedo MD Aug 02, 2017 17:08
--- NOTE | 2017-08-02 12:05 | PD.CONS ---
[facility] Service Urology Consult Requested By Dr March Reason for Consult Ureteral obstruction with rising serum creatinine levels Primary Care Physician Addy Oakley MD Diagnosis: History of Present Illness Case of a pleasant 71-year-old female with history bilateral ureteral obstruction related to her treatment for colon cancer that included surgery radiation and chemotherapy. Patient has been managed by Dr. Kitchen with bilateral nephrostomy tubes for quite some time and approximate 1 month ago elected to have a left ureteral stent placed with removal of the left-sided nephrostomy tube. Initially the patient did well however she presented to [place] just over week ago with acute onset left flank pain and rising serum creatinine levels. Patient was evaluated by at that time who recommended conservative management as the patient's symptoms had abated and the creatinine levels were improving. Patient represents now with recurrent severe left flank pain and rising serum creatinine levels now measuring 3.4. She reports that the right nephrostomy tube has been draining well and recently has noticed minimal output via the urethra. She did have a CT scan of the abdomen and pelvis on July 24 of this year that demonstrated left-sided hydronephrosis despite a left ureteral stent that appeared to be in proper position. She also was noted to have an atrophic right kidney with a right nephrostomy tube in place. Review of Systems Constitutional: DENIES: Fever, Chills Cardiovascular: DENIES: Chest pain Gastrointestinal: COMPLAINS OF: Abdominal pain (Left side) Genitourinary: DENIES: Hematuria Musculoskeletal: COMPLAINS OF: Back pain (Left flank) Except as stated in HPI: all other systems reviewed are Neg Past Family Social History Past Medical History Colon cancer diagnosed 1994 Recurrence of colon cancer with sacral involvement 1996 Bowel obstruction Depression Chronic kidney disease Thyroid cancer Skin cancer Past Surgical History Status post bowel resection with colostomy Status post placement of bilateral nephrostomy tubes Status post thyroidectomy Status post exploratory laparotomy with lysis of adhesions Status post hysterectomy Status post appendectomy Reported Medications Refer to EMR Allergies: Coded Allergies: No Known Allergies (Verified Allergy, Unknown, 08/02/17) Active Ordered Medications Refer to EMR Family History Alzheimer's disease Coronary artery disease Social History Denies tobacco history Denies illicit drug use history Occasional alcohol use Physical Exam Vital Signs Date Time Temp Pulse Resp B/P (MAP) Pulse Ox O2 Delivery O2 Flow Rate FiO2 08/02/17 10:56 69 15 181/81 (114) 99 Room Air 08/02/17 07:30 98.3 78 16 (129) 100 Room Air 08/02/17 07:30 98.3 78 16 (129) 100 Room Air 08/02/17 07:30 78 16 08/02/17 04:14 98.7 70 198 (126) 99 Room Air 08/02/17 03:59 98.6 71 (128) 99 Physical Exam GENERAL: This is a well-nourished, well-developed patient, in no apparent distress. SKIN: No rashes, ecchymoses or lesions. Cool and dry. HEAD: Atraumatic. Normocephalic. No temporal or scalp tenderness. EYES: Pupils equal round and reactive. Extraocular motions intact. No scleral icterus. No injection or drainage. ENT: Nose without bleeding, purulent drainage or septal hematoma. Throat without erythema, tonsillar hypertrophy or exudate. Uvula midline. Airway patent. NECK: Trachea midline. No JVD or lymphadenopathy. Supple, nontender, no meningeal signs. GASTROINTESTINAL: Abdomen soft, non-tender, nondistended. GENITOURINARY: Mild left CVA tenderness, right nephrostomy in place and draining well MUSCULOSKELETAL: Extremities without clubbing, cyanosis, or edema. No joint tenderness, effusion, or edema noted. No calf tenderness. Negative Homans sign bilaterally. NEUROLOGICAL: Awake and alert. Cranial nerves II through XII intact. Motor and sensory grossly within normal limits. Five out of 5 muscle strength in all muscle groups. Normal speech. Lab results reviewed: Yes Laboratory Tests Test 08/02/17 04:45 08/02/17 05:00 08/02/17 06:30 Urine Color YELLOW Urine Turbidity HAZY Urine pH 6.0 Urine Specific [place] 1.011 Urine Protein TRACE Urine Glucose (UA) NEG Urine Ketones NEG Urine Occult Blood TRACE Urine Nitrite NEG Urine Bilirubin NEG Urine Urobilinogen LESS THAN 2.0 Urine Leukocyte Esterase LARGE Urine RBC 8 Urine WBC 31 Urine Renal Epithelial Cells 2 Urine Amorphous Sediment RARE Urine Bacteria MOD Urine Hyaline Casts 2 Urine Mucus FEW Microscopic Urinalysis Comment CULTURE INDICATED White Blood Count 11.4 Red Blood Count 3.55 Hemoglobin 10.5 Hematocrit 32.8 Mean Corpuscular Volume 92.4 Mean Corpuscular Hemoglobin 29.7 Mean Corpuscular Hemoglobin Concent 32.2 Red Cell Distribution Width 14.6 Platelet Count 272 Mean Platelet Volume 8.5 Neutrophils (%) (Auto) 85.6 Lymphocytes (%) (Auto) 6.1 Monocytes (%) (Auto) 6.0 Eosinophils (%) (Auto) 2.0 Basophils (%) (Auto) 0.3 Neutrophils # (Auto) 9.7 Lymphocytes # (Auto) 0.7 Monocytes # (Auto) 0.7 Eosinophils # (Auto) 0.2 Basophils # (Auto) 0.0 CBC Comment DIFF FINAL Differential Comment Prothrombin Time 10.2 Prothromb Time International Ratio 1.0 Activated Partial Thromboplast Time 138.2 30.6 Blood Urea Nitrogen 38 Creatinine 3.40 Random Glucose 102 Total Protein 7.5 Albumin 2.9 Calcium Level 8.8 Alkaline Phosphatase 88 Aspartate Amino Transf (AST/SGOT) 12 Alanine Aminotransferase (ALT/SGPT) 13 Total Bilirubin 0.3 Sodium Level 141 Potassium Level 4.1 Chloride Level 113 Carbon Dioxide Level 13.0 Anion Gap 15 Estimat Glomerular Filtration Rate 13 Lipase 151 Date/Time Source Procedure Growth Status 08/02/17 04:45 Urine Clean Catch Urine Culture Pending Received Result Diagram: 08/02/17 0500 08/02/17 0500 Personally reviewed images: Yes Imaging Last Impressions Chest X-Ray 08/02/17 0435 Signed Impressions: CONCLUSION: No acute intrathoracic disease. Stable examination. Assessment and Plan Assessment and Plan Urologic impression: 1. Atrophic right kidney 2. History bilateral ureteral obstruction related to radiation therapy 3. Recent development of left hydronephrosis and recurrent left flank pain related to poorly functioning left ureteral stent Recommendations: 1. Interventional radiology to place a left-sided nephrostomy tube 2. Continue with right nephrostomy tube to gravity drainage 3. Patient may be discharged home after left nephrostomy tube placed once when medically stable and improvement noted on serum creatinine levels. 4. Patient advised to follow-up with her established urologist within the next several weeks for left ureteral stent removal 5. Will be available as needed during present hospitalization. [place] Ac MD Aug 02, 2017 12:05
--- NOTE | 2017-08-02 12:21 | PD.CONS ---
HPI Service Nephrology Consult Requested By Dr. Oviedo Reason for Consult Acute renal failure Primary Care Physician Addy Oakley MD History of Present Illness Patient is a 71-year-old white female with history of colorectal cancer status post chemotherapy and radiation, she has obstructive uropathy and has nephrostomy tubes the left one was removed and a stent was placed patient has been admitted with acute renal dysfunction but her symptoms got better and she got discharged with conservative management, she came in again complaining of left flank pain and noted to have hydronephrosis despite having a stent creatinine is 3.4, baseline creatinine around 2.3, she follows with Dr. Cristobal, Dr. Kitchen and Dr. Beckman Review of Systems Constitutional: COMPLAINS OF: Fatigue Gastrointestinal: COMPLAINS OF: Abdominal pain Genitourinary: COMPLAINS OF: Dyspareunia, Urinary frequency Musculoskeletal: COMPLAINS OF: Joint pain, Muscle aches Past Family Social History Allergies: Coded Allergies: No Known Allergies (Verified Allergy, Unknown, 08/02/17) Past Medical History Colon cancer diagnosed 1994 Recurrence of colon cancer with sacral involvement 1996 Bowel obstruction Depression Chronic kidney disease Thyroid cancer Skin cancer Past Surgical History Status post bowel resection with colostomy Status post placement of bilateral nephrostomy tubes Status post thyroidectomy Status post exploratory laparotomy with lysis of adhesions Status post hysterectomy Status post appendectomy Reported Medications Reported Meds & Active Scripts Active Reported Sertraline (Sertraline HCl) 100 Mg Tab 100 Mg PO HS Levothyroxine (Levothyroxine Sodium) 125 Mcg Tab 125 Mcg PO DAILY [place] (Hydrocodone-Acetaminophen) 5-325 mg Tab 1 Tab PO Q4H PRN Estradiol 1 Mg Tab 1 Mg PO HS Calcitriol 0.25 Mcg Cap 0.25 Mcg PO DAILY Vitamin D3 (Cholecalciferol) 1,000 Unit Tab 5,000 Units PO DAILY Fentanyl Patch 72 HR (Fentanyl) 25 Mcg/Hr Patch 25 Mcg T-DERMAL Q72H Fentanyl Patch 72 HR (Fentanyl) 100 Mcg/Hr Patch 100 Mcg T-DERMAL Q72H Remove old patch when new one placed. Active Ordered Medications Current Medications Medications (Trade) Dose Ordered Sig/[place] Route Start Time Stop Time Status Last Admin Ceftriaxone Sodium 1000 mg/ Sodium Chloride 100 ml @ 200 mls/hr Q24H IV 08/03/17 09:00 Sodium Chloride 1,000 ml @ 100 mls/hr Q10H IV 08/02/17 09:00 08/02/17 10:06 (NS Flush) 2 ml UNSCH PRN IV FLUSH 08/02/17 08:45 (NS Flush) 2 ml BID IV FLUSH 08/02/17 09:00 08/02/17 10:05 (Tylenol) 650 mg Q4H PRN PO 08/02/17 08:45 (Compazine Supp) 25 mg Q12H PRN RECTAL 08/02/17 08:45 (Narcan Inj) 0.4 mg UNSCH PRN IV PUSH 08/02/17 08:45 (Bonnie-Colace) 1 tab BID PO 08/02/17 09:00 (Milk Of Magnesia Liq) 30 ml Q12H PRN PO 08/02/17 08:45 (Senokot) 17.2 mg Q12H PRN PO 08/02/17 08:45 (Dulcolax Supp) 10 mg DAILY PRN RECTAL 08/02/17 08:45 (Lactulose Liq) 30 ml DAILY PRN PO 08/02/17 08:45 (Duragesic 100 Mcg Patch.72 Hr) 1 patch Q72H T-DERMAL 08/02/17 10:00 (Synthroid) 125 mcg DAILY@0600 PO 08/03/17 06:00 (Zoloft) 100 mg HS PO 08/02/17 21:00 ([place] 5-325 Mg) 1 tab Q4H PRN PO 08/02/17 08:45 ([place] 10-325 Mg) 1 tab Q4H PRN PO 08/02/17 08:45 (Dilaudid Pf Inj) 0.5 mg Q4H PRN IV PUSH 08/02/17 08:45 (Narcan Inj) 0.4 mg UNSCH PRN IV PUSH 08/02/17 08:45 Family History Noncontributory Social History Denies smoking or alcohol use Physical Exam Vital Signs Vital Signs Date Time Temp Pulse Resp B/P (MAP) Pulse Ox O2 Delivery O2 Flow Rate FiO2 08/02/17 10:56 69 15 181/81 (114) 99 Room Air 08/02/17 07:30 98.3 78 16 202/93 (129) 100 Room Air 08/02/17 07:30 98.3 78 16 202/93 (129) 100 Room Air 08/02/17 07:30 78 16 6/5/18 04:14 98.7 70 18 198/91 (126) 99 Room Air 08/02/17 03:59 98.6 71 18 202/91 (128) 99 Physical Exam GENERAL: Well-nourished, well-developed patient. SKIN: Warm and dry. HEAD: Normocephalic. EYES: No scleral icterus. No injection or drainage. NECK: Supple, trachea midline. No JVD or lymphadenopathy. CARDIOVASCULAR: Regular rate and rhythm without murmurs, gallops, or rubs. RESPIRATORY: Breath sounds equal bilaterally. No accessory muscle use. GASTROINTESTINAL: Abdomen soft, non-tender, nondistended. EXTREMITIES: No cyanosis, or edema. NEUROLOGICAL: Awake, alert, and oriented x 3. Non-focal. Laboratory Laboratory Tests Test 08/02/17 04:45 08/02/17 05:00 08/02/17 06:30 Urine Color YELLOW Urine Turbidity HAZY Urine pH 6.0 Urine Specific [place] 1.011 Urine Protein TRACE Urine Glucose (UA) NEG Urine Ketones NEG Urine Occult Blood TRACE Urine Nitrite NEG Urine Bilirubin NEG Urine Urobilinogen LESS THAN 2.0 Urine Leukocyte Esterase LARGE Urine RBC 8 Urine WBC 31 Urine Renal Epithelial Cells 2 Urine Amorphous Sediment RARE Urine Bacteria MOD Urine Hyaline Casts 2 Urine Mucus FEW Microscopic Urinalysis Comment CULTURE INDICATED White Blood Count 11.4 Red Blood Count 3.55 Hemoglobin 10.5 Hematocrit 32.8 Mean Corpuscular Volume 92.4 Mean Corpuscular Hemoglobin 29.7 Mean Corpuscular Hemoglobin Concent 32.2 Red Cell Distribution Width 14.6 Platelet Count 272 Mean Platelet Volume 8.5 Neutrophils (%) (Auto) 85.6 Lymphocytes (%) (Auto) 6.1 Monocytes (%) (Auto) 6.0 Eosinophils (%) (Auto) 2.0 Basophils (%) (Auto) 0.3 Neutrophils # (Auto) 9.7 Lymphocytes # (Auto) 0.7 Monocytes # (Auto) 0.7 Eosinophils # (Auto) 0.2 Basophils # (Auto) 0.0 CBC Comment DIFF FINAL Differential Comment Prothrombin Time 10.2 Prothromb Time International Ratio 1.0 Activated Partial Thromboplast Time 138.2 30.6 Blood Urea Nitrogen 38 Creatinine 3.40 Random Glucose 102 Total Protein 7.5 Albumin 2.9 Calcium Level 8.8 Alkaline Phosphatase 88 Aspartate Amino Transf (AST/SGOT) 12 Alanine Aminotransferase (ALT/SGPT) 13 Total Bilirubin 0.3 Sodium Level 141 Potassium Level 4.1 Chloride Level 113 Carbon Dioxide Level 13.0 Anion Gap 15 Estimat Glomerular Filtration Rate 13 Lipase 151 Date/Time Source Procedure Growth Status 08/02/17 04:45 Urine Clean Catch Urine Culture Pending Received Result Diagram: 08/02/17 0500 08/02/17 0500 Imaging Last Impressions Chest X-Ray 08/02/17 6655 Signed Impressions: CONCLUSION: No acute intrathoracic disease. Stable examination. Assessment and Plan Problem List: (1) CKD (chronic kidney disease) stage 4, GFR 15-29 ml/min ICD Codes: N18.4 - Chronic kidney disease, stage 4 (severe) Plan: Patient has history of chronic kidney disease with obstructive uropathy the CT scan on 07/24/2017 was reviewed showed right atrophic kidney nephrostomy tube in place left severe hydronephrosis despite having stent in place I agree with placement of nephrostomy tube follow BMP Avoid nephrotoxins, dye studies or nonsteroidal anti-inflammatory drug use. (2) Acidosis, metabolic ICD Codes: E87.2 - Acidosis Plan: Change IV fluid to half-normal saline with 100 mg of sodium bicarbonate at 100 cc an hour (3) Obstructive uropathy ICD Codes: N13.9 - Obstructive and reflux uropathy, unspecified Plan: Urology on the case (4) Hydronephrosis ICD Codes: N13.30 - Unspecified hydronephrosis Status: Acute Plan: Patient has chronic hydronephrosis continue to monitor Aravind Zeng MD Aug 02, 2017 12:21
[2017-08-02] MEDS: HYDROmorphone HCL PF 0.5 MG/0.5 ML SYRINGE IV PUSH PRN (13:11)
[2017-08-02] MEDS ORDERED: hydrALAZINE HCL 10 MG TAB PO PRN (13:15)
[2017-08-02] MEDS ORDERED: hydrALAZINE HCL 20 MG/ML VIAL IV PUSH ONE (13:15)
[2017-08-02] MEDS ORDERED: MIDAZOLAM HCL 2 MG/2 ML VIAL ONE (14:44)
--- NOTE | 2017-08-02 14:52 | HHI.HP ---
[facility] Service [place] [facility] Primary Care Physician Addy Oakley MD Admission Diagnosis Renal failure, uti Diagnoses: Chief Complaint: back pain Travel History International Travel<30 Days: No Contact w/Intl Traveler <30 Da: No Traveled to Known Affected Are: No History of Present Illness 71-year-old female who presented to the ED this morning for L sided flank pain that began last night around 9pm. The pain is sharp, severe and rated 10/10. It radiates anteriorly through her abdomen. She has a longstanding history of chronic kidney disease and ureteral obstruction after radiation for colorectal cancer w/ sacral metastasis in 1994. The pain is accompanied by nausea, decreased appetite, and dry heaving. She also reports decreased urine output per urethra, denies blood in the urine. She has not eaten since yesterday morning and fluid intake is also decreased. She has had multiple ureteral stents and bilateral nephrostomy tubes in the past. She elected to have the L nephrostomy tube removed 1 month ago. A ureteral stent was replaced at this time. She presented to the ED last week with similar symptoms and was told she had L ureteral obstruction that may require nephrostomy tube replacement in the future. Symptoms improved and she was discharged, but the same type of pain recurred last night and prompted her visit to the ED. She is followed by Dr. Kitchen for urology. Consult nephrology seen by Dr Ac recommends IR for nephrostomy tube. She has history of colectomy and ileostomy with placement of colostomy bag. She has had no trouble with BMs. Denies fever, chills, weakness, headache, shortness of breath, cough, diarrhea, constipation. Reports diffuse abdominal tenderness which she attributes to dry heaving. She has chronic severe pain and is prescribed hydrocodone and fentanyl patch but the pain is persistent and severeor neurologic symptoms. She went to her oncologist on yesterday for regularly scheduled IV fluid bolus, which she receives on Tuesday, Tuesday, and Fridays. 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 Thyroid cancer, s/p thyroidectomy (2003) Depression Skin cancer Bladder cancer Recurrent UTIs Hyperlipidemia Anemia Arthritis Dialysis prior to nephrostomy tubes Past Surgical History Colectomy with ileostomy Ileostomy revision 2011 Total thyroidectomy 2004 Multiple nephrostomy tubes Ureteral stent placement R sided [id number] placement Radiation 1990s Hysterectomy Appendectomy Skin ca removal Reported Medications Reported Meds & Active Scripts Active Reported Sertraline (Sertraline HCl) 100 Mg Tab 100 Mg PO HS Levothyroxine (Levothyroxine Sodium) 125 Mcg Tab 125 Mcg PO DAILY [place] (Hydrocodone-Acetaminophen) 5-325 mg Tab 1 Tab PO Q4H PRN Estradiol 1 Mg Tab 1 Mg PO HS Calcitriol 0.25 Mcg Cap 0.25 Mcg PO DAILY Vitamin D3 (Cholecalciferol) 1,000 Unit Tab 5,000 Units PO DAILY Fentanyl Patch 72 HR (Fentanyl) 25 Mcg/Hr Patch 25 Mcg T-DERMAL Q72H Fentanyl Patch 72 HR (Fentanyl) 100 Mcg/Hr Patch 100 Mcg T-DERMAL Q72H Remove old patch when new one placed. Allergies: Coded Allergies: No Known Allergies (Verified Allergy, Unknown, 08/02/17) Family History No known family history of CA Father with CAD and Alzheimer's Social History Never tobacco use Social EtOH use Never illicit drug use Physical Exam Vital Signs Vital Signs Date Time Temp Pulse Resp B/P (MAP) Pulse Ox O2 Delivery O2 Flow Rate FiO2 08/02/17 13:28 98.3 63 17 192/87 (122) 100 08/02/17 13:13 181/81 (114) 08/02/17 10:56 69 15 181/81 (114) 99 Room Air 08/02/17 07:30 98.3 78 16 202 (129) 100 Room Air 08/02/17 07:30 98.3 78 16 202 (129) 100 Room Air 08/02/17 07:30 78 16 08/02/17 04:14 98.7 70 18 198/ (126) 99 Room Air 08/02/17 03:59 98.6 71 18 / (128) 99 Physical Exam GENERAL: This is a well-nourished, well-developed patient, in some distress due to pain SKIN: No rashes, ecchymoses or lesions. Cool and dry. HEAD: Atraumatic. Normocephalic. No temporal or scalp tenderness. EYES: Pupils equal round and reactive. Extraocular motions intact. No scleral icterus. No injection or drainage. ENT: Nose without bleeding, purulent drainage or septal hematoma. Throat without erythema, tonsillar hypertrophy or exudate. Uvula midline. Airway patent. NECK: Trachea midline. No JVD or lymphadenopathy. Supple, nontender, no meningeal signs. CARDIOVASCULAR: Regular rate and rhythm without murmurs, gallops, or rubs. RESPIRATORY: Clear to auscultation. Breath sounds equal bilaterally. No wheezes , rales, or rhonchi. GASTROINTESTINAL:Abdomen soft, nondistended, diffusely tender to palpation. No guarding or rebound. Bowel sounds present. Colostomy bag present in LLQ with no surrounding erythema. CVA tenderness with light palpation over L flank. MUSCULOSKELETAL: Extremities without clubbing, cyanosis, or edema. No joint tenderness, effusion, or edema noted. No calf tenderness. Negative Homans sign bilaterally. NEUROLOGICAL: Awake and alert. Cranial nerves II through XII intact. Motor and sensory grossly within normal limits. Five out of 5 muscle strength in all muscle groups. Normal speech. Laboratory Laboratory Tests Test 08/02/17 04:45 08/02/17 05:00 08/02/17 06:30 Urine Color YELLOW Urine Turbidity HAZY Urine pH 6.0 Urine Specific [place] 1.011 Urine Protein TRACE Urine Glucose (UA) NEG Urine Ketones NEG Urine Occult Blood TRACE Urine Nitrite NEG Urine Bilirubin NEG Urine Urobilinogen LESS THAN 2.0 Urine Leukocyte Esterase LARGE Urine RBC 8 Urine WBC 31 Urine Renal Epithelial Cells 2 Urine Amorphous Sediment RARE Urine Bacteria MOD Urine Hyaline Casts 2 Urine Mucus FEW Microscopic Urinalysis Comment CULTURE INDICATED White Blood Count 11.4 Red Blood Count 3.55 Hemoglobin 10.5 Hematocrit 32.8 Mean Corpuscular Volume 92.4 Mean Corpuscular Hemoglobin 29.7 Mean Corpuscular Hemoglobin Concent 32.2 Red Cell Distribution Width 14.6 Platelet Count 272 Mean Platelet Volume 8.5 Neutrophils (%) (Auto) 85.6 Lymphocytes (%) (Auto) 6.1 Monocytes (%) (Auto) 6.0 Eosinophils (%) (Auto) 2.0 Basophils (%) (Auto) 0.3 Neutrophils # (Auto) 9.7 Lymphocytes # (Auto) 0.7 Monocytes # (Auto) 0.7 Eosinophils # (Auto) 0.2 Basophils # (Auto) 0.0 CBC Comment DIFF FINAL Differential Comment Prothrombin Time 10.2 Prothromb Time International Ratio 1.0 Activated Partial Thromboplast Time 138.2 30.6 Blood Urea Nitrogen 38 Creatinine 3.40 Random Glucose 102 Total Protein 7.5 Albumin 2.9 Calcium Level 8.8 Alkaline Phosphatase 88 Aspartate Amino Transf (AST/SGOT) 12 Alanine Aminotransferase (ALT/SGPT) 13 Total Bilirubin 0.3 Sodium Level 141 Potassium Level 4.1 Chloride Level 113 Carbon Dioxide Level 13.0 Anion Gap 15 Estimat Glomerular Filtration Rate 13 Lipase 151 Date/Time Source Procedure Growth Status 08/02/17 04:45 Urine Clean Catch Urine Culture Pending Received Result Diagram: 08/02/17 0500 08/02/17 0500 Imaging Last Impressions Chest X-Ray 08/02/17 0435 Signed Impressions: CONCLUSION: No acute intrathoracic disease. Stable examination. Caprini VTE Risk Assessment Caprini VTE Risk Assessment: Mod/High Risk (score >= 2) Caprini Risk Assessment Model Point Value = 1 Point Value = 2 Point Value = 3 Point Value = 5 Age 41-60 Minor surgery BMI > 25 kg/m2 Swollen legs Varicose veins or History of unexplained or recurrent spontaneous Oral contraceptives or hormone replacement Sepsis (< 1 month) Serious lung disease, including pneumonia (< 1 month) Abnormal pulmonary function Acute myocardial infarction Congestive heart failure (< 1 month) History of inflammatory bowel disease Medical patient at bed rest Age 61-74 Arthroscopic surgery Major open surgery (> 45 min) Laparoscopic surgery (> 45 min) Malignancy Confined to bed (> 72 hours) Immobilizing plaster cast Central venous access Age >= 75 History of VTE Family history of VTE Factor V Leiden Prothrombin [id number] Lupus anticoagulant Anticardiolipin antibodies Elevated serum homocysteine Heparin-induced thrombocytopenia Other congenital or acquired thrombophilia Stroke (< 1 month) Elective arthroplasty Hip, pelvis, or leg fracture Acute spinal cord injury (< 1 month) Prophylaxis Regimen Total Risk Factor Score Risk Level Prophylaxis Regimen 0-1 Low Early ambulation 2 Moderate Order ONE of the following: *Sequential Compression Device (SCD) *Heparin 5000 units SQ BID 3-4 Higher Order ONE of the following medications: *Heparin 5000 units SQ TID *Enoxaparin/Lovenox 40 mg SQ daily (WT < 150 kg, CrCl > 30 mL/min) *Enoxaparin/Lovenox 30 mg SQ daily (WT < 150 kg, CrCl > 10-29 mL/min) *Enoxaparin/Lovenox 30 mg SQ BID (WT < 150 kg, CrCl > 30 mL/min) AND/OR *Sequential Compression Device (SCD) 5 or more Highest Order ONE of the following medications: *Heparin 5000 units SQ TID (Preferred with Epidurals) *Enoxaparin/Lovenox 40 mg SQ daily (WT < 150 kg, CrCl > 30 mL/min) *Enoxaparin/Lovenox 30 mg SQ daily (WT < 150 kg, CrCl > 10-29 mL/min) *Enoxaparin/Lovenox 30 mg SQ BID (WT < 150 kg, CrCl > 30 mL/min) AND *Sequential Compression Device (SCD) Assessment and Plan Problem List: (1) CKD (chronic kidney disease) stage 4, GFR 15-29 ml/min ICD Code: N18.4 - Chronic kidney disease, stage 4 (severe) (2) Acute renal failure ICD Code: N17.9 - Acute kidney failure, unspecified Status: Acute (3) Nephrostomy tubes, chronic Status: Acute (4) Chronic bilateral ureteral strictures Status: Acute (5) History of colorectal cancer Status: Acute (6) UTI (lower urinary tract infection) ICD Code: N39.0 - UTI (lower urinary tract infection) Status: Acute Assessment and Plan 71-year-old female with L flank pain since last night around 9 PM. She has an extensive history of chronic renal insufficiency with ureteral obstruction after radiation therapy. She has been treated with multiple ureteral stents and nephrostomy tubes in the past, with most recent intervention 1 month ago when nephrostomy was removed and stent was replaced. She is followed by Dr. Kitchen for outpatient management. She was seen in the ED last week for similar pain and hydronephrosis. She was seen by Dr. Resendiz, who recommended conservative management for the time being and future placement of L nephrostomy tube if renal function worsened and symptoms returned. At the time, intervention was not warranted as renal function improved with IV fluids and she was discharged home. Acute renal failure on chronic renal insufficiency Patient's BUN/creatinine is currently 38/ 3.40. This was elevated from July 25, 2017, when creatinine was 2.32. Pt was started on IV fluids in the ED. Continue IVF. She is prescribed [place] and fentanyl patch for pain as an outpatient. Will continue home pain medications at the time Pain meds per pain scale with norco and dilaudid for breakthrough pain IR consulted for urostomy placement Patient with Failed ureteral stent s/p nephrostomy tube by IR 08/02/17. Ureteral stent removal bny her urology Dr as OP per Dr Ac urology. Renal U/S was ordered but patient refuses study at this time due to pain. Imaging at most recent ED visit showed hydronephrosis. Consult nephrology appreciate recommendations Continue to monitor renal function Urinary tract infection WBC elevated at 11.4 on admission not meeting sepsis criteria UA positive for large leukocyte esterase, WBC 31, moderate bacteria. Pending urine culture No recent positive UAs Continue IV Rocephin, monitor results of urine culture Nausea Likely related to severity of pain and acute renal failure Ordered zofran and compazine Anemia Hb 10.5 L, Hct 32.8 L This appears to be at patient's baseline from prior hospital visits. No indication for transfusion, and patient denies blood in the urine or stool. Will continue to monitor Elevated BP BP at time of admission ~200/90 Patient denies any history of HTN and does not take BP medications. In comparison to recent hospital visits, this is abnormally elevated and likely due to a combination of pain and possibly renal function. Monitor vitals As need hydralazine Start amlodipine Restart as appropriate home medications: sertraline, levothyroxine, estradiol, Vitamin D Heart healthy diet DVT ppx: Lovenox per renal function/SCDs Physician Certification 2 Midnight Certification Type: Admission for Inpatient Services Order for Inpatient Services The services are ordered in accordance with Medicare regulations or non- Medicare payer requirements, as applicable. In the case of services not specified as inpatient-only, they are appropriately provided as inpatient services in accordance with the 2-midnight benchmark. Estimated LOS (days): 3 days is the estimated time the patient will need to remain in the hospital, assuming treatment plan goals are met and no additional complications. Post-Hospital Plan: Home Problem Qualifiers (1) Acute renal failure: Qualified Codes: N17.9 - Acute kidney failure, unspecified Estrella Oviedo MD Aug 02, 2017 14:52
--- NOTE | 2017-08-02 15:24 | PD.RAD ---
Post Procedure Progress Note Pre Procedure Diagnosis: (1) Hydronephrosis Post Procedure Diagnosis: (1) Hydronephrosis Procedure Date: Aug 02, 2017 Supervising Radiologist: Erik Berry JR Proceduralist/Assist: RT [place](R), RT Bib(R)(CV) Anesthesia: Conscious Sedation Plan of Activity Patient to Unit: ROPU Patient Condition: Good See PACS Report for procedural detail/treatment Drainage Procedure Procedure 1 Imaging Guidance: Fluoroscopy, Ultrasound Side: Left Procedure Type: Nephrostomy Procedure: Placement Burmese: 8 Fluid Description: Clear Findings: Failed ureteral stent. Placed 8F nephrostomy tube. Clear urine. Sutured in place. Ureteral stent removal per urology. Jr. Jamal,Erik Weaver MD Aug 02, 2017 15:24
[2017-08-02] MEDS ORDERED: IOHEXOL 350 MG/ML 50 ML BTL (for RAD DIAG) OTHER ONE (15:31)
[2017-08-02] MEDS: SODIUM BICARBONATE 8.4% INJ 100 MEQ in SODIUM CHLOR 0.45% 1000 ML INJ 1,000 ML IV SCH (16:56)
[2017-08-02] MEDS: fentaNYL 100 MCG/HR PATCH T-DERMAL SCH (16:58)
--- NOTE | 2017-08-02 17:04 | RADRPT ---
EXAM DATE: 08/02/2017 4:00 PM EDT AGE/SEX: 71 years / Female INDICATIONS: Patient with history of bladder cancer. Here because left ureteral stent not working wi th resulting hydronephrosis. getting a left nephrostomy tube. CLINICAL DATA: This is the patient's initial encounter. Patient reports that signs and symptoms have been present for > 1 year and indicates a pain score of 4/10. MEDICAL/SURGICAL HISTORY: Carcinoma, colon. Carcinoma, bladder. Carcinoma, thyroid. renal ca ncer Thyroidectomy. Hysterectomy. several nephrostomy tubes Ileostomy COMPARISON: . FLUORO TIME (min): 2.0 IMAGE SERIES: 3 SEDATION TIME (min): 25 CONTRAST (cc): 10 Omnipaque (iohexol) 350 MEDICATION(S): 3 mg midazolam (Versed) IV 150 mcg fentanyl (Sublimaze) IV DEVICE(S): 8 [place] nephrostomy catheter EXPEL . . PROCEDURE : 1. Ultrasound-guided puncture of the kidney. 2. Antegrade percutaneous pyelogram. 3. Percutaneous nephrostomy placement. 4. Conscious sedation with continuous EKG and oximetry monitoring. The risks, benefits and alternatives to the procedure were explained and verbal and written consent w as obtained. The site was prepped in sterile fashion. Full sterile technique was used, including ca p, mask, sterile gloves and gown and a large sterile sheet. Hand hygiene and 2% chlorhexidine and/or betadine/alcohol prep was utilized per protocol for cutaneous antisepsis. Sterile gel and sterile probe cover were utilized for ultrasound guidance. The skin and subcutaneous tissues were infiltrate d with local anesthetic solution. With ultrasound and fluoroscopic guidance the left kidney was punctured via a mid calyceal approach a nd a percutaneous antegrade pyelogram was performed demonstrating a dilated collecting system. Seria l dilatation was performed and a prescribed nephrostomy tube was placed within the renal pelvis and s utured in place. Conscious sedation was performed with the prescribed dosages and duration as above in the presence of an independent trained radiology nurse to assist in the monitoring of the patient. EKG and oximetry remained stable throughout the procedure. The patient tolerated the procedure well and there were n o complications. The patient was sent to post anesthesia recovery in stable condition. CONCLUSION: 1. Uncomplicated left nephrostomy tube placement as above. The urine was clear. Ureteral stent remov al per urology. Electronically signed by: Erik Berry MD 08/02/2017 5:03 PM EDT
[2017-08-02] MEDS ORDERED: amLODIPine BESYLATE 5 MG TAB PO ONE (17:15)
[2017-08-02] MEDS ORDERED: MULTIVITAMIN TAB PO ONE (18:30)
[2017-08-02] MEDS ORDERED: fentaNYL 25 MCG/HR PATCH T-DERMAL SCH (20:00)
[2017-08-02] MEDS: SERTRALINE HCL 100 MG TAB PO SCH (20:14)
[2017-08-02] MEDS: ACETAMINOPHEN/HYDROcodone 325 MG/10 MG TAB PO PRN (20:15)
[2017-08-03 00:29] VITALS: BP 149/76; PULSE 81; RESP 18; TEMP 99.2; O2SAT 95
[2017-08-03] MEDS: HYDROmorphone HCL PF 0.5 MG/0.5 ML SYRINGE IV PUSH PRN ×2 (01:02→05:45)
[2017-08-03] MEDS: ACETAMINOPHEN/HYDROcodone 325 MG/10 MG TAB PO PRN ×2 (02:40→19:21)
[2017-08-03 05:01] VITALS: BP 161/74; PULSE 85; RESP 18; TEMP 98.8; O2SAT 97
[2017-08-03] MEDS: LEVOTHYROXINE SODIUM 125 MCG TAB PO SCH (05:41)
[2017-08-03] MEDS: SODIUM BICARBONATE 8.4% INJ 100 MEQ in SODIUM CHLOR 0.45% 1000 ML INJ 1,000 ML IV SCH ×3 (05:44→21:23)
[2017-08-03 07:14] LABS: AUTOMATED NEUTROPHIL # 14.4 TH/MM3 (1.8-7.7); BASOPHIL % 0.2 % (0.0-2.0); EOSINOPHIL % 0.2 % (0.0-4.0); HEMATOCRIT 30.1 % (35.0-46.0); HEMOGLOBIN 9.8 GM/DL (11.6-15.3); LYMPH % 4.4 % (9.0-44.0); LYMPHOCYTE # 0.7 TH/MM3 (1.0-4.8); MEAN CORPUSCULAR HEMOGLOBIN 29.5 PG (27.0-34.0); MEAN CORPUSCULAR HGB CONC 32.4 % (32.0-36.0); MEAN PLATELET VOLUME 8.5 FL (7.0-11.0); MONO % 6.4 % (0.0-8.0); NEUT % 88.8 % (16.0-70.0); PLATELET COUNT 307 TH/MM3 (150-450); RED BLOOD COUNT 3.31 MIL/MM3 (4.00-5.30); RED CELL DISTRIBUTION WIDTH 13.8 % (11.6-17.2); WHITE BLOOD COUNT 16.2 TH/MM3 (4.0-11.0)
[2017-08-03 07:47] LABS: ALBUMIN 2.3 GM/DL (3.4-5.0); ALKALINE PHOSPHATASE 83 U/L (45-117); ALT (GPT) 13 U/L (10-53); AST (GOT) 12 U/L (15-37); BICARBONATE 18.5 MEQ/L (21.0-32.0); BLOOD UREA NITROGEN 35 MG/DL (7-18); CALCIUM 8.1 MG/DL (8.5-10.1); CHLORIDE 112 MEQ/L (98-107); GLOMERULAR FILTRATION RATE 13 ML/MIN (>89); GLUCOSE,RANDOM 97 MG/DL (74-106); MAGNESIUM 1.5 MG/DL (1.5-2.5); PHOSPHORUS 4.8 MG/DL (2.5-4.9); SODIUM (NA) 143 MEQ/L (136-145); TOTAL BILIRUBIN ADULT 0.3 MG/DL (0.2-1.0); TOTAL PROTEIN 6.9 GM/DL (6.4-8.2)
[2017-08-03] MEDS: SODIUM CHLORIDE 0.9% FLUSH 10 ML FLUSH IV FLUSH SCH ×2 (07:49→21:00)
[2017-08-03] MEDS: MULTIVITAMIN TAB PO SCH (07:49)
[2017-08-03] MEDS: amLODIPine BESYLATE 5 MG TAB PO SCH (07:49)
[2017-08-03] MEDS: DOCUSATE SODIUM 50 MG/SENNA 8.6 MG TAB PO SCH ×2 (07:50→21:00)
[2017-08-03 08:00] VITALS: BP 159/72; PULSE 75; RESP 18; TEMP 98.1; O2SAT 99
[2017-08-03] MEDS ORDERED: cefTRIAXone INJ 1,000 MG in SODIUM CHLORIDE 0.9% INJ 100 ML IV SCH (09:00)
--- NOTE | 2017-08-03 09:27 | HHI.PR ---
Subjective Remarks Pain nephrostomy tube site improved with the family. Says she is able to ambulate. No nausea vomiting she is eating well. Feels tired. No fever or chills. Objective Vitals Vital Signs Date Time Temp Pulse Resp B/P (MAP) Pulse Ox O2 Delivery O2 Flow Rate FiO2 08/03/17 08:00 98.1 75 18 159/72 (101) 99 08/03/17 05:01 98.8 85 18 161/74 (103) 97 08/03/17 00:29 99.2 81 18 149/76 (100) 95 08/02/17 20:28 100.1 77 16 185/81 (115) 96 08/02/17 17:43 98 21 08/02/17 16:58 98.0 78 19 155/85 (108) 98 08/02/17 16:25 71 16 141/70 (93) 96 08/02/17 16:10 72 16 149/76 (100) 96 08/02/17 15:50 75 16 151/77 (101) 96 08/02/17 15:35 98.6 73 16 155/92 (113) 95 08/02/17 13:28 98.3 63 17 192/87 (122) 100 08/02/17 13:13 181/81 (114) 08/02/17 10:56 69 15 181/81 (114) 99 Room Air I/O 08/02/17 08/02/17 08/02/17 08/03/17 08/03/17 08/03/17 07:00 15:00 23:00 07:00 15:00 23:00 Intake Total 600 ml 390 ml 480 ml Output Total 1025 ml 2100 ml Balance 600 ml -635 ml -1620 ml Intake Oral 480 ml IV Total 600 ml 390 ml Output Urine Total 75 ml Drainage Total 950 ml 2100 ml # Voids 1 1 Result Diagram: 08/03/17 0551 08/03/17 0551 Imaging Last Impressions Nephrostomy 08/02/17 0613 Signed Impressions: CONCLUSION: 1. Uncomplicated left nephrostomy tube placement as above. The urine was clear . Ureteral stent removal per urology. Chest X-Ray 08/02/17 0507 Signed Impressions: CONCLUSION: No acute intrathoracic disease. Stable examination. Objective Remarks GENERAL: This is a well-nourished, well-developed patient, in some distress due to pain CARDIOVASCULAR: Regular rate and rhythm without murmurs, gallops, or rubs. RESPIRATORY: Clear to auscultation. Breath sounds equal bilaterally. No wheezes , rales, or rhonchi. GASTROINTESTINAL:Abdomen soft, nondistended, diffusely tender to palpation. No guarding or rebound. Bowel sounds present. Colostomy bag present in LLQ with no surrounding erythema. CVA tenderness with light palpation over L flank. MUSCULOSKELETAL: Extremities without clubbing, cyanosis, or edema. No joint tenderness, effusion, or edema noted. No calf tenderness. Negative Homans sign bilaterally. NEUROLOGICAL: Awake and alert. Cranial nerves II through XII intact. Motor and sensory grossly within normal limits. Five out of 5 muscle strength in all muscle groups. Normal speech. A/P Problem List: (1) CKD (chronic kidney disease) stage 4, GFR 15-29 ml/min ICD Code: N18.4 - Chronic kidney disease, stage 4 (severe) (2) Acute renal failure ICD Code: N17.9 - Acute kidney failure, unspecified Status: Acute (3) Nephrostomy tubes, chronic Status: Acute (4) Chronic bilateral ureteral strictures Status: Acute (5) History of colorectal cancer Status: Acute (6) UTI (lower urinary tract infection) ICD Code: N39.0 - UTI (lower urinary tract infection) Status: Acute Assessment and Plan 71-year-old female with L flank pain since last night around 9 PM. She has an extensive history of chronic renal insufficiency with ureteral obstruction after radiation therapy. She has been treated with multiple ureteral stents and nephrostomy tubes in the past, with most recent intervention 1 month ago when nephrostomy was removed and stent was replaced. She is followed by Dr. Kitchen for outpatient management. She was seen in the ED last week for similar pain and hydronephrosis. She was seen by Dr. Resendiz, who recommended conservative management for the time being and future placement of L nephrostomy tube if renal function worsened and symptoms returned. At the time, intervention was not warranted as renal function improved with IV fluids and she was discharged home. Acute renal failure on chronic renal insufficiency Patient's BUN/creatinine is currently 38/ 3.40. This was elevated from July 25, 2017, when creatinine was 2.32. Pt was started on IV fluids in the ED. Continue IVF. She is prescribed [place] and fentanyl patch for pain as an outpatient. Will continue home pain medications at the time Pain meds per pain scale with norco and dilaudid for breakthrough pain IR consulted for urostomy placement Patient with Failed ureteral stent s/p nephrostomy tube by IR 08/02/17. Ureteral stent removal bny her urology Dr as OP per Dr Ac urology. Renal U/S was ordered but patient refuses study at this time due to pain. Imaging at most recent ED visit showed hydronephrosis. Consult nephrology appreciate recommendations Continue to monitor renal function Urinary tract infection WBC elevated at 11.4 on admission not meeting sepsis criteria UA positive for large leukocyte esterase, WBC 31, moderate bacteria. Pending urine culture No recent positive UAs Continue IV Rocephin, monitor results of urine culture Nausea Likely related to severity of pain and acute renal failure Ordered zofran and compazine Anemia Hb 10.5 L, Hct 32.8 L This appears to be at patient's baseline from prior hospital visits. No indication for transfusion, and patient denies blood in the urine or stool. Will continue to monitor Elevated BP BP at time of admission ~200/90 Patient denies any history of HTN and does not take BP medications. In comparison to recent hospital visits, this is abnormally elevated and likely due to a combination of pain and possibly renal function. Monitor vitals As need hydralazine Start amlodipine Restart as appropriate home medications: sertraline, levothyroxine, estradiol, Vitamin D Heart healthy diet DVT ppx: Lovenox per renal function/SCDs Discharge plan. Patient kidney function improving. Discharge when kidney function is back at her baseline Discussed with the patient, nurse, Dr. Zeng nephrology. Problem Qualifiers (1) Acute renal failure: Qualified Codes: N17.9 - Acute kidney failure, unspecified Estrella Oviedo MD Aug 03, 2017 09:27
[2017-08-03 12:00] VITALS: BP 136/67; PULSE 88; RESP 17; TEMP 98.4; O2SAT 98
--- NOTE | 2017-08-03 14:06 | HHI.NPPN ---
Subjective History of Present Illness 71-year-old white female with history of colorectal cancer status post radiation , obstructive uropathy left flank pain as hydronephrosis despite having a stent Additional Remarks Feels better status post nephrostomy on the left Objective Data Data Vital Signs Date Time Temp Pulse Resp B/P (MAP) Pulse Ox O2 Delivery O2 Flow Rate FiO2 08/03/17 12:00 98.4 88 17 136/67 (90) 98 08/03/17 08:00 98.1 75 18 159/72 (101) 99 08/03/17 05:01 98.8 85 18 161/74 (103) 97 08/03/17 00:29 99.2 81 18 149/76 (100) 95 08/02/17 20:28 100.1 77 16 185/81 (115) 96 08/02/17 17:43 98 21 08/02/17 16:58 98.0 78 19 155/85 (108) 98 08/02/17 16:25 71 16 141/70 (93) 96 08/02/17 16:10 72 16 149/76 (100) 96 08/02/17 15:50 75 16 151/77 (101) 96 08/02/17 15:35 98.6 73 16 155/92 (113) 95 -: 08/03/17 0551 08/03/17 0551 Physical Exam General Appearance: Well Developed, Well Nourished Neck Neck Exam: Neck Supple Pulmonary Resp Exam: Clear Bilaterally, Breath Sounds Equal Cardiology CV Exam: Regular, Normal Sinus Rhythm Gastrointestinal/Abdomen GI Exam: Soft, Non-Tender, Bowel Sounds Present Extremeties Extremities Exam: No Edema Assessment/Plan Problem List: (1) CKD (chronic kidney disease) stage 4, GFR 15-29 ml/min ICD Codes: N18.4 - Chronic kidney disease, stage 4 (severe) Plan: Patient has history of chronic kidney disease with obstructive uropathy the CT scan on 07/24/2017 was reviewed showed right atrophic kidney nephrostomy tube in place left severe hydronephrosis despite having stent in place Status post nephrostomy tube placement Good urine output Pain on the left side subsided Creatinine 3.5 slightly high I told her 1 cc of downward trend in the discharge to follow-up with own congressional assistant and urologist Discussed with Dr. Oviedo (2) Acidosis, metabolic ICD Codes: E87.2 - Acidosis Plan: On half-normal saline with 100 mg of sodium bicarbonate at 100 cc an hour improved (3) Obstructive uropathy ICD Codes: N13.9 - Obstructive and reflux uropathy, unspecified Plan: Urology on the case (4) Hydronephrosis ICD Codes: N13.30 - Unspecified hydronephrosis Status: Acute Plan: Patient has chronic hydronephrosis continue to monitor Now with bilateral nephrostomy Aravind Zeng MD Aug 03, 2017 14:06
[2017-08-03 16:00] VITALS: BP 124/62; PULSE 95; RESP 18; TEMP 99.4; O2SAT 99
[2017-08-03 20:00] VITALS: BP 136/68; PULSE 83; RESP 16; TEMP 98.9; O2SAT 96
[2017-08-03] MEDS: SERTRALINE HCL 100 MG TAB PO SCH (21:19)
[2017-08-04] VITALS: BP 129/60; PULSE 80; RESP 16; TEMP 99.4; O2SAT 95
[2017-08-04] MEDS: ACETAMINOPHEN/HYDROcodone 325 MG/10 MG TAB PO PRN ×3 (00:29→21:10)
[2017-08-04] MEDS: SODIUM BICARBONATE 8.4% INJ 100 MEQ in SODIUM CHLOR 0.45% 1000 ML INJ 1,000 ML IV SCH ×2 (00:32→21:14)
[2017-08-04 04:00] VITALS: BP 130/70; PULSE 77; RESP 18; TEMP 99.1; O2SAT 96
[2017-08-04] MEDS: LEVOTHYROXINE SODIUM 125 MCG TAB PO SCH (05:14)
[2017-08-04 08:00] VITALS: BP 156/80; PULSE 79; RESP 18; TEMP 98.3; O2SAT 98
[2017-08-04] MEDS: DOCUSATE SODIUM 50 MG/SENNA 8.6 MG TAB PO SCH ×2 (08:59→21:00)
[2017-08-04] MEDS: MULTIVITAMIN TAB PO SCH (08:59)
[2017-08-04] MEDS: PIPERACIL-TAZO 2.25 GM PREMIX 50 ML IV SCH ×2 (09:00→17:07)
[2017-08-04] MEDS: amLODIPine BESYLATE 5 MG TAB PO SCH (09:00)
[2017-08-04] MEDS: SODIUM CHLORIDE 0.9% FLUSH 10 ML FLUSH IV FLUSH SCH ×2 (09:00→21:07)
--- NOTE | 2017-08-04 09:41 | HHI.PR ---
Subjective Remarks Pain is better controlled. Is able to ambulate. No fever or chills overnight. Says she has fairly good urine output. Says she feels much better and she would like to go home. Objective Vitals Vital Signs Date Time Temp Pulse Resp B/P (MAP) Pulse Ox O2 Delivery O2 Flow Rate FiO2 08/04/17 08:00 98.3 79 18 156/80 (105) 98 08/04/17 04:00 99.1 77 18 130/70 (90) 96 08/04/17 00:00 99.4 80 16 129/60 (83) 95 08/03/17 20:00 98.9 83 16 136/68 (90) 96 08/03/17 16:00 99.4 95 18 124/62 (82) 99 08/03/17 12:00 98.4 88 17 136/67 (90) 98 I/O 08/03/17 08/03/17 08/03/17 08/04/17 08/04/17 08/04/17 07:00 15:00 23:00 07:00 15:00 23:00 Intake Total 480 ml 720 ml 1100 ml Output Total 2100 ml 2177 ml 1650 ml 1650 ml Balance -1620 ml -1457 ml -550 ml -1650 ml Intake Oral 480 ml 720 ml IV Total 1100 ml Output Urine Total 0 ml 1650 ml Stool Total 2 ml Drainage Total 2100 ml 2175 ml 1650 ml # Voids 1 Result Diagram: 08/03/17 0551 08/03/17 0551 Imaging Last Impressions Nephrostomy 08/02/17 0613 Signed Impressions: CONCLUSION: 1. Uncomplicated left nephrostomy tube placement as above. The urine was clear . Ureteral stent removal per urology. Chest X-Ray 08/02/17 1431 Signed Impressions: CONCLUSION: No acute intrathoracic disease. Stable examination. Objective Remarks GENERAL: This is a well-nourished, well-developed patient, in no apparent distress. CARDIOVASCULAR: Regular rate and rhythm without murmurs, gallops, or rubs. RESPIRATORY: Clear to auscultation. Breath sounds equal bilaterally. No wheezes , rales, or rhonchi. GASTROINTESTINAL:Abdomen soft, nondistended, diffusely tender to palpation. No guarding or rebound. Bowel sounds present. Colostomy bag present in LLQ with no surrounding erythema. Mild left CVA tenderness. MUSCULOSKELETAL: Extremities without clubbing, cyanosis, or edema. No joint tenderness, effusion, or edema noted. No calf tenderness. Negative Homans sign bilaterally. NEUROLOGICAL: Awake and alert. Cranial nerves II through XII intact. Motor and sensory grossly within normal limits. Five out of 5 muscle strength in all muscle groups. Normal speech. A/P Problem List: (1) CKD (chronic kidney disease) stage 4, GFR 15-29 ml/min ICD Code: N18.4 - Chronic kidney disease, stage 4 (severe) (2) Acute renal failure ICD Code: N17.9 - Acute kidney failure, unspecified Status: Acute (3) Nephrostomy tubes, chronic Status: Acute (4) Chronic bilateral ureteral strictures Status: Acute (5) History of colorectal cancer Status: Acute (6) UTI (lower urinary tract infection) ICD Code: N39.0 - UTI (lower urinary tract infection) Status: Acute Assessment and Plan 71-year-old female with L flank pain since last night around 9 PM. She has an extensive history of chronic renal insufficiency with ureteral obstruction after radiation therapy. She has been treated with multiple ureteral stents and nephrostomy tubes in the past, with most recent intervention 1 month ago when nephrostomy was removed and stent was replaced. She is followed by Dr. Kitchen for outpatient management. She was seen in the ED last week for similar pain and hydronephrosis. She was seen by Dr. Resendiz, who recommended conservative management for the time being and future placement of L nephrostomy tube if renal function worsened and symptoms returned. At the time, intervention was not warranted as renal function improved with IV fluids and she was discharged home. Acute renal failure on chronic renal insufficiency Patient's BUN/creatinine is currently 38/ 3.40. This was elevated from July 25, 2017, when creatinine was 2.32. Pt was started on IV fluids in the ED. Continue IVF. She is prescribed [place] and fentanyl patch for pain as an outpatient. Will continue home pain medications at the time Pain meds per pain scale with norco and dilaudid for breakthrough pain IR consulted for urostomy placemen. t Patient with Failed ureteral stent s/p nephrostomy tube by IR 08/02/17. Patient has now bilateral nephrostomy tubes. Ureteral stent removal bny her urology Dr as OP per Dr Ac urology. Renal U/S was ordered but patient refuses study at this time due to pain. Imaging at most recent ED visit showed hydronephrosis. Consult nephrology appreciate recommendations Continue to monitor renal function Complicated Urinary tract infection, patient with ureteral stent and now with nephrostomy tube WBC elevated at 11.4 on admission not meeting sepsis criteria UA positive for large leukocyte esterase, WBC 31, moderate bacteria. Pending urine culture No recent positive UAs Urine cultures with pseudomonas aeruginosa. DC Rocephin and start Zosyn per renal dose. Consult ID specialist as patient with complicated UTI and also sensitivities shows resistance to cipro and Levaquin Nausea Likely related to severity of pain and acute renal failure Ordered zofran and compazine Anemia Hb 10.5 L, Hct 32.8 L This appears to be at patient's baseline from prior hospital visits. No indication for transfusion, and patient denies blood in the urine or stool. Will continue to monitor Elevated BP BP at time of admission ~200/90 Patient denies any history of HTN and does not take BP medications. In comparison to recent hospital visits, this is abnormally elevated and likely due to a combination of pain and possibly renal function. Monitor vitals As need hydralazine Start amlodipine Restart as appropriate home medications: sertraline, levothyroxine, estradiol, Vitamin D Heart healthy diet DVT ppx: Lovenox per renal function/SCDs Discharge plan. Patient kidney function improving. Discharge when kidney function is back at her baseline Discussed with the patient, nurse, Dr. Zeng nephrology. Problem Qualifiers (1) Acute renal failure: Qualified Codes: N17.9 - Acute kidney failure, unspecified Estrella Oviedo MD Aug 04, 2017 09:41
[2017-08-04 10:11] LABS: BICARBONATE 29.1 MEQ/L (21.0-32.0); CALCIUM 7.7 MG/DL (8.5-10.1); CREATININE 2.96 MG/DL (0.50-1.00)
[2017-08-04 12:00] VITALS: BP 134/68; PULSE 71; RESP 18; TEMP 98.8; O2SAT 94
[2017-08-04] MEDS ORDERED: POTASSIUM BICARBONATE 25 MEQ EFFERVESCENT TAB PO ONE (13:30)
--- NOTE | 2017-08-04 14:31 | HHI.NPPN ---
Subjective History of Present Illness 71-year-old white female with history of colorectal cancer status post radiation , obstructive uropathy left flank pain as hydronephrosis despite having a stent Additional Remarks Feels better status post nephrostomy on the left Objective Data Data 08/04/17 08/05/17 19:00 07:00 Output Total 1650 ml Balance -1650 ml Drainage Total 1650 ml Vital Signs Date Time Temp Pulse Resp B/P (MAP) Pulse Ox O2 Delivery O2 Flow Rate FiO2 08/04/17 12:00 98.8 71 18 134/68 (90) 94 08/04/17 08:00 98.3 79 18 156/80 (105) 98 08/04/17 04:00 99.1 77 18 130/70 (90) 96 08/04/17 00:00 99.4 80 16 129/60 (83) 95 08/03/17 20:00 98.9 83 16 136/68 (90) 96 08/03/17 16:00 99.4 95 18 124/62 (82) 99 -: 08/03/17 0551 08/04/17 0911 Physical Exam General Appearance: Well Developed, Well Nourished Neck Neck Exam: Neck Supple Pulmonary Resp Exam: Clear Bilaterally, Breath Sounds Equal Cardiology CV Exam: Regular, Normal Sinus Rhythm Gastrointestinal/Abdomen GI Exam: Soft, Non-Tender, Bowel Sounds Present Extremeties Extremities Exam: No Edema Assessment/Plan Problem List: (1) CKD (chronic kidney disease) stage 4, GFR 15-29 ml/min ICD Codes: N18.4 - Chronic kidney disease, stage 4 (severe) Plan: Patient has history of chronic kidney disease with obstructive uropathy the CT scan on 07/24/2017 was reviewed showed right atrophic kidney nephrostomy tube in place left severe hydronephrosis despite having stent in place Status post nephrostomy tube placement Good urine output Pain on the left side subsided Creatinine 2.9 lower, K replaced discharge to follow-up with own hydrometer finisher and urologist uti Pseudomonas treated ID Consulted (2) Acidosis, metabolic ICD Codes: E87.2 - Acidosis Plan: On half-normal saline with 100 mg of sodium bicarbonate at 100 cc an hour improved (3) Obstructive uropathy ICD Codes: N13.9 - Obstructive and reflux uropathy, unspecified Plan: Urology on the case (4) Hydronephrosis ICD Codes: N13.30 - Unspecified hydronephrosis Status: Acute Plan: Patient has chronic hydronephrosis continue to monitor Now with bilateral nephrostomy Aravind Zeng MD Aug 04, 2017 14:31
[2017-08-04 14:38] LABS: AUTOMATED NEUTROPHIL # 6.9 TH/MM3 (1.8-7.7); BASOPHIL % 0.2 % (0.0-2.0); EOSINOPHIL # 0.2 TH/MM3 (0-0.4); EOSINOPHIL % 2.7 % (0.0-4.0); HEMATOCRIT 27.7 % (35.0-46.0); HEMOGLOBIN 9.2 GM/DL (11.6-15.3); LYMPH % 9.2 % (9.0-44.0); LYMPHOCYTE # 0.8 TH/MM3 (1.0-4.8); MEAN CELL VOLUME 90.8 FL (80.0-100.0); MEAN CORPUSCULAR HEMOGLOBIN 30.2 PG (27.0-34.0); MEAN CORPUSCULAR HGB CONC 33.2 % (32.0-36.0); MEAN PLATELET VOLUME 8.4 FL (7.0-11.0); MONO % 9.2 % (0.0-8.0); MONOCYTE # 0.8 TH/MM3 (0-0.9); NEUT % 78.7 % (16.0-70.0); PLATELET COUNT 257 TH/MM3 (150-450); RED BLOOD COUNT 3.05 MIL/MM3 (4.00-5.30); RED CELL DISTRIBUTION WIDTH 13.6 % (11.6-17.2); WHITE BLOOD COUNT 8.7 TH/MM3 (4.0-11.0)
[2017-08-04 16:00] VITALS: BP 141/73; PULSE 74; RESP 18; TEMP 98.3; O2SAT 95
[2017-08-04] MEDS ORDERED: PERI PO (17:41)
[2017-08-04] MEDS ORDERED: AMLO5 PO (17:41)
--- NOTE | 2017-08-04 17:41 | HHI.DS ---
Discharge Summary Admission Date Aug 02, 2017 at 08:29 Discharge Date: Aug 05, 2017 Admitting Diagnosis Renal failure, uti (1) CKD (chronic kidney disease) stage 4, GFR 15-29 ml/min ICD Code: N18.4 - Chronic kidney disease, stage 4 (severe) (2) Acute renal failure ICD Code: N17.9 - Acute kidney failure, unspecified Status: Acute (3) Nephrostomy tubes, chronic Status: Acute (4) Chronic bilateral ureteral strictures Status: Acute (5) History of colorectal cancer Status: Acute (6) UTI (lower urinary tract infection) ICD Code: N39.0 - UTI (lower urinary tract infection) Status: Acute Procedures s/p nephrostomy tube by IR 08/02/17. Brief History - From Admission 71-year-old female who presented to the ED this morning for L sided flank pain that began last night around 9pm. The pain is sharp, severe and rated 10/10. It radiates anteriorly through her abdomen. She has a longstanding history of chronic kidney disease and ureteral obstruction after radiation for colorectal cancer w/ sacral metastasis in 1994. The pain is accompanied by nausea, decreased appetite, and dry heaving. She also reports decreased urine output per urethra, denies blood in the urine. She has not eaten since yesterday morning and fluid intake is also decreased. She has had multiple ureteral stents and bilateral nephrostomy tubes in the past. She elected to have the L nephrostomy tube removed 1 month ago. A ureteral stent was replaced at this time. She presented to the ED last week with similar symptoms and was told she had L ureteral obstruction that may require nephrostomy tube replacement in the future. Symptoms improved and she was discharged, but the same type of pain recurred last night and prompted her visit to the ED. She is followed by Dr. Kitchen for urology. Consult nephrology seen by Dr Ac recommends IR for nephrostomy tube. She has history of colectomy and ileostomy with placement of colostomy bag. She has had no trouble with BMs. Denies fever, chills, weakness, headache, shortness of breath, cough, diarrhea, constipation. Reports diffuse abdominal tenderness which she attributes to dry heaving. She has chronic severe pain and is prescribed hydrocodone and fentanyl patch but the pain is persistent and severeor neurologic symptoms. She went to her oncologist on yesterday for regularly scheduled IV fluid bolus, which she receives on Tuesday, Tuesday, and Fridays. CBC/BMP: 08/04/17 1357 08/04/17 0911 Significant Findings Laboratory Tests Test 08/02/17 04:45 08/02/17 05:00 08/02/17 06:30 08/03/17 05:51 Urine Turbidity HAZY (CLEAR) Urine Occult Blood TRACE (NEG) Urine Leukocyte Esterase LARGE (NEG) Urine RBC 8 /hpf (0-3) Urine WBC 31 /hpf (0-5) Urine Bacteria MOD /hpf (NONE) Urine Mucus FEW /lpf (OCC) White Blood Count 11.4 TH/MM3 (4.0-11.0) 16.2 TH/MM3 (4.0-11.0) Red Blood Count 3.55 MIL/MM3 (4.00-5.30) 3.31 MIL/MM3 (4.00-5.30) Hemoglobin 10.5 GM/DL (11.6-15.3) 9.8 GM/DL (11.6-15.3) Hematocrit 32.8 % (35.0-46.0) 30.1 % (35.0-46.0) Neutrophils (%) (Auto) 85.6 % (16.0-70.0) 88.8 % (16.0-70.0) Lymphocytes (%) (Auto) 6.1 % (9.0-44.0) 4.4 % (9.0-44.0) Neutrophils # (Auto) 9.7 TH/MM3 (1.8-7.7) 14.4 TH/MM3 (1.8-7.7) Lymphocytes # (Auto) 0.7 TH/MM3 (1.0-4.8) 0.7 TH/MM3 (1.0-4.8) Activated Partial Thromboplast Time 138.2 SEC (24.3-30.1) 30.6 SEC (24.3-30.1) Blood Urea Nitrogen 38 MG/DL (7-18) 35 MG/DL (7-18) Creatinine 3.40 MG/DL (0.50-1.00) 3.50 MG/DL (0.50-1.00) Albumin 2.9 GM/DL (3.4-5.0) 2.3 GM/DL (3.4-5.0) Aspartate Amino Transf (AST/SGOT) 12 U/L (15-37) 12 U/L (15-37) Chloride Level 113 MEQ/L (98-107) 112 MEQ/L (98-107) Carbon Dioxide Level 13.0 MEQ/L (21.0-32.0) 18.5 MEQ/L (21.0-32.0) Estimat Glomerular Filtration Rate 13 ML/MIN (>89) 13 ML/MIN (>89) Monocytes # (Auto) 1.0 TH/MM3 (0-0.9) Calcium Level 8.1 MG/DL (8.5-10.1) Test 08/04/17 09:11 08/04/17 13:57 Blood Urea Nitrogen 28 MG/DL (7-18) Creatinine 2.96 MG/DL (0.50-1.00) Random Glucose 121 MG/DL (74-106) Calcium Level 7.7 MG/DL (8.5-10.1) Potassium Level 3.1 MEQ/L (3.5-5.1) Estimat Glomerular Filtration Rate 16 ML/MIN (>89) Red Blood Count 3.05 MIL/MM3 (4.00-5.30) Hemoglobin 9.2 GM/DL (11.6-15.3) Hematocrit 27.7 % (35.0-46.0) Neutrophils (%) (Auto) 78.7 % (16.0-70.0) Monocytes (%) (Auto) 9.2 % (0.0-8.0) Lymphocytes # (Auto) 0.8 TH/MM3 (1.0-4.8) Imaging Last Impressions Nephrostomy 08/02/17 0202 Signed Impressions: CONCLUSION: 1. Uncomplicated left nephrostomy tube placement as above. The urine was clear . Ureteral stent removal per urology. Chest X-Ray 08/02/17 7176 Signed Impressions: CONCLUSION: No acute intrathoracic disease. Stable examination. PE at Discharge GENERAL: This is a well-nourished, well-developed patient, in no apparent distress. CARDIOVASCULAR: Regular rate and rhythm without murmurs, gallops, or rubs. RESPIRATORY: Clear to auscultation. Breath sounds equal bilaterally. No wheezes , rales, or rhonchi. GASTROINTESTINAL:Abdomen soft, nondistended, diffusely tender to palpation. No guarding or rebound. Bowel sounds present. Colostomy bag present in LLQ with no surrounding erythema. Mild left CVA tenderness. MUSCULOSKELETAL: Extremities without clubbing, cyanosis, or edema. No joint tenderness, effusion, or edema noted. No calf tenderness. Negative Homans sign bilaterally. NEUROLOGICAL: Awake and alert. Cranial nerves II through XII intact. Motor and sensory grossly within normal limits. Five out of 5 muscle strength in all muscle groups. Normal speech. Pt update on day of discharge Patient is better and she wants to go home. However her potassium is low to noted below and also obtain corrected calcium is low. Replace potassium and also replace calcium by IV. Patient denies having any chest pain or shortness of breath. No nausea or vomiting no diarrhea constipation. No fever or chills. Pain is controlled by medications. Says she has pain medications at home. Says she is acquainted with infectious disease Dr[facility]fredo [facility] Dr. Veloz and she will follow-up with her as well. Discussed with the patient, nurse, Dr Segura ID, CM . Arrangements for DC done. Hospital Course 71-year-old female with L flank pain since last night around 9 PM. She has an extensive history of chronic renal insufficiency with ureteral obstruction after radiation therapy. She has been treated with multiple ureteral stents and nephrostomy tubes in the past, with most recent intervention 1 month ago when nephrostomy was removed and stent was replaced. She is followed by Dr. Kitchen for outpatient management. She was seen in the ED last week for similar pain and hydronephrosis. She was seen by Dr. Resendiz, who recommended conservative management for the time being and future placement of L nephrostomy tube if renal function worsened and symptoms returned. At the time, intervention was not warranted as renal function improved with IV fluids and she was discharged home. Acute renal failure on chronic renal insufficiency Patient's BUN/creatinine is currently 38/ 3.40. This was elevated from July 25, 2017, when creatinine was 2.32.. Cr back to almost her baseline at NH . Cleared by nephrology for Dc Dr Zeng. Pt received IV fluids and kidney function improved after IVF and also after nephrostomy tube was placed by IR. She is prescribed [place] and fentanyl patch for pain as an outpatient. Continue home pain medications at the time Received inpatient pain meds per pain scale with norco and dilaudid for breakthrough pain IR consulted for urostomy placement. Patient with Failed ureteral stent s/p nephrostomy tube by IR 08/02/17. Patient has now bilateral nephrostomy tubes. Ureteral stent removal bny her urology Dr as OP per Dr Ac urology. Renal U/S was ordered but patient refuses study at this time due to pain. Imaging at most recent ED visit showed hydronephrosis. Consult nephrology appreciate recommendations Continue to monitor renal function Complicated Urinary tract infection, patient with ureteral stent and now with nephrostomy tube WBC elevated at 11.4 on admission not meeting sepsis criteria UA positive for large leukocyte esterase, WBC 31, moderate bacteria. Pending urine culture No recent positive UAs Urine cultures with pseudomonas aeruginosa. DC Rocephin and start Zosyn per renal dose. Consult ID specialist as patient with complicated UTI and also sensitivities shows resistance to cipro and Levaquin Antibiotic at NH per ID recommendations: Cefepime 2 grams IV q 24 hours. Start Treatment: Aug 04, 2017. Stop Treatment: Aug 17, 2017 Venous access: Implanted Port Weekly Labs: CBC w/diff, CMP Nausea. Resolved. Likely related to severity of pain and acute renal failure Ordered zofran and compazine Anemia Hb 10.5 L, Hct 32.8 L This appears to be at patient's baseline from prior hospital visits. No indication for transfusion, and patient denies blood in the urine or stool. Will continue to monitor Elevated BP BP at time of admission ~200/90 Patient denies any history of HTN and does not take BP medications. In comparison to recent hospital visits, this is abnormally elevated and likely due to a combination of pain and possibly renal function. Monitor vitals As need hydralazine Start amlodipine Restart as appropriate home medications: sertraline, levothyroxine, estradiol, Vitamin D Hypokalemia. Replaced Hypocalcemia: Replaced. Encourage PO intake. Patient was asking for regular diet while inpatient. DVT ppx: Lovenox per renal function/SCDs Antibiotic at NH: Cefepime 2 grams IV q 24 hours. Start Treatment: Aug 04, 2017. Stop Treatment: Aug 17, 2017 Venous access: Implanted Port Weekly Labs: CBC w/diff, CMP Patient is discharged home in stable condition to follow up as OP with PCP and consultants. Patient already is acquainted with ID Dr Lizzie Sherman and will follow up as OP with her. Pt Condition on Discharge: Stable Discharge Disposition: Disch w/ Home Health Serv Discharge Time: > 30 minutes Discharge Instructions DIET: Follow Instructions for: Heart Healthy Diet, Diabetic Diet, Renal Failure Diet Activities you can perform: Regular-No Restrictions Follow up Referrals: Appointment for Follow Up Appointment for Follow Up Infectious Disease - 1 Week with Kelley Veloz MD Nephrology - 1 Week PCP Follow-up - 2-3 Days PCP Follow-up New Medications: Cefepime Inj (Maxipime Inj) 2 Gram Inj 2 GM IV DAILY for Infection for 14 Days, VIAL 0 Refills Epinephrine Inj (Epinephrine Inj) 1 Mg/Ml (1 Ml) Inj 0.3 MG IV PUSH ONCE PRN for ALLERGIC REACTION, #1 VIAL Epinephrine Inj (Epinephrine Inj) 1 Mg/Ml (1 Ml) Inj 0.3 MG SQ ONCE PRN for ALLERGIC REACTION, #1 VIAL Give with any signs of respiratory distress. Hydrocortisone Inj (Solu-Cortef Inj) 250 Mg/2 Ml Inj 250 MG IV PUSH ONCE PRN for ALLERGIC REACTION, #1 VIAL 0 Refills Give over 30-60 seconds. Amlodipine (Norvasc) 5 Mg Tab 5 MG PO DAILY for Blood Pressure Management, #30 TAB Sennosides-Docusate Sodium (Gnp Senna Plus 8.6-50 mg) 8.6 Mg-50 Mg Tab 1 TAB PO BID for Constipation, #60 TAB Continued Medications: Calcitriol (Calcitriol) 0.25 Mcg Cap 0.25 MCG PO DAILY for Calcium Supplement, #30 CAP 0 Refills Cholecalciferol (Vitamin D3) 1,000 Unit Tab 5000 UNITS PO DAILY for Nutritional Supplement, #1 BOTTLE 0 Refills Estradiol (Estradiol) 1 Mg Tab 1 MG PO HS for Estrogen Supplements, #30 TAB 0 Refills Fentanyl Patch 72 HR (Fentanyl Patch 72 HR) 100 Mcg/Hr Patch 100 MCG T-DERMAL Q72H for Pain Management, #10 PATCH 0 Refills Remove old patch when new one placed. Fentanyl Patch 72 HR (Fentanyl Patch 72 HR) 25 Mcg/Hr Patch 25 MCG T-DERMAL Q72H for Pain Management, #10 PATCH 0 Refills Hydrocodone-Acetaminophen ([place]) 5-325 mg Tab 1 TAB PO Q4H PRN for PAIN, TAB 0 Refills Levothyroxine (Levothyroxine) 125 Mcg Tab 125 MCG PO DAILY for Thyroid, #30 TAB 0 Refills Sertraline (Sertraline) 100 Mg Tab 100 MG PO HS, #30 TAB 0 Refills Estrella Oviedo MD Aug 04, 2017 17:41
--- NOTE | 2017-08-04 19:23 | PD.ID.CON ---
History of Present Illness Service ID Consult Requested By Dr Oviedo Reason for Consult PSAE UTI Primary Care Physician Addy Oakley MD Diagnoses: History of Present Illness 71 yop female with colon cancer that recuurreed twice sp radiation treatment resulted in b/l ureteres obstruction Patient has been managed by Dr. Kitchen with bilateral nephrostomy tubes for quite some time and approximate 1 month ago elected to have a left ureteral stent placed with removal of the left-sided nephrostomy tube. Initially the patient did well however she presented to [facility] just over week ago with acute onset left flank pain and rising serum creatinine levels that was managed conservatively as the patient's symptoms had abated and the creatinine levels were improving. Patient came back this week with recurrent severe left flank pain and rising serum creatinine levels now measuring 3.4. CT scan of the abdomen and pelvis on July 24 of this year that demonstrated left -sided hydronephrosis despite a left ureteral stent that appeared to be in proper position. She also was noted to have an atrophic right kidney with a right nephrostomy tube in place She got a new nephrostomy tubbe on kristian admission He Davide was abnormal and her urine culture is positive for PSAE R to quinolones Her WBC went down from 16 K to 8 K she was started on zosyn Review of Systems Except as stated in HPI: all other systems reviewed are Neg Past Family Social History Allergies: Coded Allergies: No Known Allergies (Verified Allergy, Unknown, 08/02/17) Past Medical History Colorectal cancer with recurrent metastasis to the sacrum, s/p chemotherapy and radiation therapy (1994) Bowel obstruction (1995) 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 Thyroid cancer, s/p thyroidectomy (2003) Depression Skin cancer Bladder cancer Recurrent UTIs Hyperlipidemia Anemia Arthritis Dialysis prior to nephrostomy tubes Past Surgical History Colectomy with ileostomy Ileostomy revision 2010 Total thyroidectomy 2003 Multiple nephrostomy tubes Ureteral stent placement R sided [id number] placement Radiation 1990s Hysterectomy Appendectomy Skin ca removal Active Ordered Medications Medications where reviewed in EMR Antibiotics Include: zosyn Family History sister with pancreatic cancer Father with CAD and Alzheimer's Social History 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 TUBES/LINES/DRAINS: PORT in place R chest - site looks OK SKIN: No jaundice, rashes, or lesions. . Skin temperature appropriate. Not diaphoretic. HEAD: Atraumatic. Normocephalic. EYES: Pupils equal and round and reactive. Extraocular motions intact. No scleral icterus. No injection or drainage. Fundi not examined. ENT: Hearing grossly normal. Nose without bleeding or purulent drainage. Throat without visible erythema, exudates, masses, or lesions. NECK: Trachea midline. Supple, nontender. No palpable thyroid enlargement or nodularity. CARDIOVASCULAR: Regular rate and rhythm without murmurs, gallops, or rubs. No JVD. Peripheral pulses symmetric. RESPIRATORY/CHEST: Symmetric, unlabored respirations. Clear to auscultation. Breath sounds equal bilaterally. No wheezes, rales, or rhonchi. GASTROINTESTINAL: Abdomen soft, non-tender, nondistended. No hepato-splenomegaly , or palpable masses. No guarding. Bowel sounds present. Well healed medial l;aparotomy scar Colostomy in place LLQ GENITOURINARY: b/l nephrostomies in place with cloudy light yellow urine R and clear light yellow urine L MUSCULOSKELETAL: Extremities without clubbing, cyanosis, or edema. No joint tenderness or effusion noted. No calf tenderness. No mottling or clubbing. LYMPHATICS: No palpable cervical or supraclavicular adenopathy. NEUROLOGICAL: Awake and alert. Motor and sensory grossly within normal limits. Follows commands. Clear speech. Moves all extremities. PSYCHIATRIC: No obvious anxiety/depression. no apparent hallucinations or other psychotic thought process. Laboratory Laboratory Tests Test 08/04/17 09:11 08/04/17 13:57 Blood Urea Nitrogen 28 Creatinine 2.96 Random Glucose 121 Calcium Level 7.7 Sodium Level 140 Potassium Level 3.1 Chloride Level 100 Carbon Dioxide Level 29.1 Anion Gap 11 Estimat Glomerular Filtration Rate 16 White Blood Count 8.7 Red Blood Count 3.05 Hemoglobin 9.2 Hematocrit 27.7 Mean Corpuscular Volume 90.8 Mean Corpuscular Hemoglobin 30.2 Mean Corpuscular Hemoglobin Concent 33.2 Red Cell Distribution Width 13.6 Platelet Count 257 Mean Platelet Volume 8.4 Neutrophils (%) (Auto) 78.7 Lymphocytes (%) (Auto) 9.2 Monocytes (%) (Auto) 9.2 Eosinophils (%) (Auto) 2.7 Basophils (%) (Auto) 0.2 Neutrophils # (Auto) 6.9 Lymphocytes # (Auto) 0.8 Monocytes # (Auto) 0.8 Eosinophils # (Auto) 0.2 Basophils # (Auto) 0.0 CBC Comment DIFF FINAL Differential Comment Date/Time Source Procedure Growth Status 08/02/17 04:45 Urine Clean Catch Urine Culture - Final Pseudomonas Aeruginosa Complete Result Diagram: 08/04/17 1357 08/04/17 0911 Imaging Last Impressions Nephrostomy 08/02/17 0613 Signed Impressions: CONCLUSION: 1. Uncomplicated left nephrostomy tube placement as above. The urine was clear . Ureteral stent removal per urology. Chest X-Ray 08/02/17 9828 Signed Impressions: CONCLUSION: No acute intrathoracic disease. Stable examination. Assessment and Plan Assessment and Plan Complicated UTI due to PSAE in a pt with obstructive uropathy sp XRT for cancer ARF on CKD cahnge abx to cefepime 2 gm q 24 hrs x 14 days OPAT filled OK to dc tomorrow after evertyhing aranged Discussed Condition With Dr Oviedo pt Elizabeth Castillo MD Aug 04, 2017 19:23
--- NOTE | 2017-08-04 19:26 | HHI.FF ---
Infusion Therapy Location of Infusion Therapy: Home Health Care IV Infusion Order Patient Information Patient Weight 67 kg Diagnosis: Coded Allergies: No Known Allergies (Verified Allergy, Unknown, 08/02/17) Administer Medication Cefepime 2 grams IV q 24 hours Start Treatment: Aug 04, 2017 Stop Treatment: Aug 17, 2017 Additional Information Venous access: Implanted Port Additional Instructions [x] Peripheral flush and dressing changes per protocol [x] Implanted port and central manager line: * Implanted port: 10 ml Normal Saline followed by 5 ml Heparin 100 units/ml Heparin flush after each use and monthly to maintain. [] May leave port accessed during therapy. [] May leave peripheral site accessed for duration of therapy. [x] If patient has SOB or respiratory distress, check oxygen saturation. If less than 90% or clinical signs of respiratory distress, administer oxygen at 2 L/min. via nasal cannula and notify physician. [x] Anaphylaxis/Reaction orders: * Stop infusion. * Keep IV line open with saline flush. * Notify physician. * Monitor vital signs every 15 minutes until symptoms resolve. * Check Oxygen saturation; Oxygen at 2 L/min. via nasal cannula if less than 90% or clinical signs of respiratory distress. * Administer diphenhydramine (Benadryl) 25 mg IV STAT, (unless patient has received as pre-med). May repeat once, if necessary. * Solu-Cortef 250 mg IVP over 30-60 seconds, use 100 mg vials for each dissolution. * Epinephrine (1mg/1 ml) 0.3 mg subcutaneously or IVP now with any signs of respiratory distress. * Check with physician for new additional pre-med orders if patient is re- challenged or re-treated. [x] May remove PICC line when treatment complete, after confirming with Physician. [x] If the patient is admitted to the hospital, the ED, or transferred via [facility] , complete transfer form including medication reconciliation order sheet. Laboratory Tests Weekly Labs: CBC w/diff, CMP Elizabeth Castillo MD Aug 04, 2017 19:26
[2017-08-04] MEDS ORDERED: EPIN1INJ21 SQ (19:27)
[2017-08-04] MEDS ORDERED: CEFE2INJ9 IV (19:27)
[2017-08-04] MEDS ORDERED: SOLU250I IV PUSH (19:27)
[2017-08-04] MEDS ORDERED: EPIN1INJ21 IV PUSH (19:27)
[2017-08-04 20:00] VITALS: BP 139/65; PULSE 81; RESP 18; TEMP 99.6; O2SAT 95
[2017-08-04] MEDS: CEFEPIME INJ 2,000 MG in SODIUM CHLORIDE 0.9% INJ 100 ML IV SCH (21:03)
[2017-08-04] MEDS: SERTRALINE HCL 100 MG TAB PO SCH (21:08)
[2017-08-05] VITALS: BP 143/70; PULSE 79; RESP 17; TEMP 98.8; O2SAT 95
[2017-08-05 04:00] VITALS: BP 142/73; PULSE 74; RESP 17; TEMP 98.2; O2SAT 95
[2017-08-05] MEDS: LEVOTHYROXINE SODIUM 125 MCG TAB PO SCH (04:47)
[2017-08-05] MEDS: ACETAMINOPHEN/HYDROcodone 325 MG/10 MG TAB PO PRN (04:49)
[2017-08-05 06:50] LABS: AUTOMATED NEUTROPHIL # 6.8 TH/MM3 (1.8-7.7); BASOPHIL % 0.3 % (0.0-2.0); EOSINOPHIL # 0.3 TH/MM3 (0-0.4); EOSINOPHIL % 3.3 % (0.0-4.0); HEMATOCRIT 28.6 % (35.0-46.0); HEMOGLOBIN 9.5 GM/DL (11.6-15.3); LYMPH % 9.3 % (9.0-44.0); LYMPHOCYTE # 0.8 TH/MM3 (1.0-4.8); MEAN CELL VOLUME 91.3 FL (80.0-100.0); MEAN CORPUSCULAR HEMOGLOBIN 30.2 PG (27.0-34.0); MEAN CORPUSCULAR HGB CONC 33.1 % (32.0-36.0); MEAN PLATELET VOLUME 8.2 FL (7.0-11.0); MONO % 9.4 % (0.0-8.0); MONOCYTE # 0.8 TH/MM3 (0-0.9); NEUT % 77.7 % (16.0-70.0); PLATELET COUNT 264 TH/MM3 (150-450); RED BLOOD COUNT 3.14 MIL/MM3 (4.00-5.30); RED CELL DISTRIBUTION WIDTH 13.6 % (11.6-17.2); WHITE BLOOD COUNT 8.8 TH/MM3 (4.0-11.0)
[2017-08-05 07:03] LABS: BICARBONATE 33.3 MEQ/L (21.0-32.0); CALCIUM 6.9 MG/DL (8.5-10.1); CREATININE 2.63 MG/DL (0.50-1.00)
[2017-08-05 07:16] LABS: TOTAL PROTEIN 7.1 GM/DL (6.4-8.2)
[2017-08-05 07:19] LABS: CALCIUM-PROTEIN CORRECTED 6.9 MG/DL (8.5-10.1)
[2017-08-05 08:00] VITALS: BP 132/73; PULSE 71; RESP 16; TEMP 98.2; O2SAT 92
[2017-08-05] MEDS: SODIUM BICARBONATE 8.4% INJ 100 MEQ in SODIUM CHLOR 0.45% 1000 ML INJ 1,000 ML IV SCH (08:00)
[2017-08-05] MEDS: SODIUM CHLORIDE 0.9% FLUSH 10 ML FLUSH IV FLUSH SCH (09:00)
[2017-08-05] MEDS ORDERED: CALCIUM GLUCONATE INJ 1 GM in SODIUM CHLORIDE 0.9% INJ 100 ML IV ONE (09:00)
[2017-08-05] MEDS: amLODIPine BESYLATE 5 MG TAB PO SCH (09:57)
[2017-08-05] MEDS: MULTIVITAMIN TAB PO SCH (09:57)
[2017-08-05] MEDS: DOCUSATE SODIUM 50 MG/SENNA 8.6 MG TAB PO SCH (09:58)
[2017-08-05] MEDS ORDERED: REMOVE OLD DURAGESIC (FENTANYL) PATCH T-DERMAL SCH ×2 (10:00→20:00)
[2017-08-05] MEDS: fentaNYL 100 MCG/HR PATCH T-DERMAL SCH (10:00)
[2017-08-05 12:00] VITALS: BP 136/73; PULSE 76; RESP 18; TEMP 98.1; O2SAT 96
[2017-08-05] MEDS ORDERED: REMOVE OLD PATCH T-DERMAL SCH (15:00)
[2017-08-05] MEDS ORDERED: fentaNYL 25 MCG/HR PATCH T-DERMAL SCH (15:00)
--- NOTE | 2017-08-05 15:14 | HHI.NPPN ---
Subjective History of Present Illness 71-year-old white female with history of colorectal cancer status post radiation , obstructive uropathy left flank pain as hydronephrosis despite having a stent Additional Remarks Feels better status post nephrostomy on the left Objective Data Data 08/05/17 08/06/17 19:00 07:00 Intake Total 110 ml Balance 110 ml IV Total 110 ml Vital Signs Date Time Temp Pulse Resp B/P (MAP) Pulse Ox O2 Delivery O2 Flow Rate FiO2 08/05/17 12:00 98.1 76 18 136/73 (94) 96 08/05/17 08:00 98.2 71 16 132/73 (92) 92 08/05/17 04:00 98.2 74 17 142/73 (96) 95 08/05/17 00:00 98.8 79 17 143/70 (94) 95 08/04/17 20:00 99.6 81 18 139/65 (89) 95 08/04/17 16:00 98.3 74 18 141/73 (95) 95 -: 08/05/17 0619 08/05/17 0619 Physical Exam General Appearance: Well Developed, Well Nourished Neck Neck Exam: Neck Supple Pulmonary Resp Exam: Clear Bilaterally, Breath Sounds Equal Cardiology CV Exam: Regular, Normal Sinus Rhythm Gastrointestinal/Abdomen GI Exam: Soft, Non-Tender, Bowel Sounds Present Extremeties Extremities Exam: No Edema Assessment/Plan Problem List: (1) CKD (chronic kidney disease) stage 4, GFR 15-29 ml/min ICD Codes: N18.4 - Chronic kidney disease, stage 4 (severe) Plan: Patient has history of chronic kidney disease with obstructive uropathy the CT scan on 07/24/2017 was reviewed showed right atrophic kidney nephrostomy tube in place left severe hydronephrosis despite having stent in place Status post nephrostomy tube placement Good urine output Pain on the left side subsided Creatinine 2.63 lower, K replaced Discontinued bicarbonate fluid discharge to follow-up with own freight brake operator and urologist uti Pseudomonas treated ID recommended treatment with cefepime (2) Acidosis, metabolic ICD Codes: E87.2 - Acidosis Plan: On half-normal saline with 100 mg of sodium bicarbonate at 100 cc an hour improved (3) Obstructive uropathy ICD Codes: N13.9 - Obstructive and reflux uropathy, unspecified Plan: Urology on the case (4) Hydronephrosis ICD Codes: N13.30 - Unspecified hydronephrosis Status: Acute Plan: Patient has chronic hydronephrosis continue to monitor Now with bilateral nephrostomy Aravind Zeng MD Aug 05, 2017 15:14
[2017-08-05 16:00] VITALS: BP 127/68; PULSE 77; RESP 18; TEMP 99.1; O2SAT 95
--- NOTE | 2017-08-05 17:01 | HHI.FF ---
Face to Face Verification Diagnosis: (1) UTI (lower urinary tract infection) (2) Nephrostomy tubes, chronic (3) History of colorectal cancer (4) Acute renal failure (5) Acute on chronic kidney disease, stage 3 (6) Chronic bilateral ureteral strictures (7) Hydronephrosis (8) Obstructive uropathy Home Health Nursing Order: Medical education Signs/symptoms of disease process Medication education-adverse effect Nursing assessment with vital signs IV medication administration I have seen patient Isabel Lopez on 08/05/17. My clinical findings support the need for the requested home health care services because: Ltd mobility - disease progression Patient has SOB I certify that my clinical findings support that this patient is homebound because: Post-op weakness Estrella Oviedo MD Aug 05, 2017 17:01
[2017-08-05] MEDS: CEFEPIME INJ 2,000 MG in SODIUM CHLORIDE 0.9% INJ 100 ML IV SCH (17:15)
== END 2017-08-05 18:57 | disposition home health service (06) | DRG 683 ==
LOC: NEPC 03:47 → NEDA 08:29 → N07A 13:27
PROVIDERS: ADMIT Hospitalist; ATTEND Hospitalist
PROC: 0T9130Z Drainage of Left Kidney with Drainage Device, Percutaneous Approach (ICD-10-PCS; principal; 2017-08-02)
PROC: BT1FYZZ Fluoroscopy of Left Kidney, Ureter and Bladder using Other Contrast (ICD-10-PCS; 2017-08-02)
DX: N17.9 Acute kidney failure, unspecified (principal); N39.0 Urinary tract infection, site not specified; E87.2 Acidosis; F32.9 Major depressive disorder, single episode, unspecified; N18.4 Chronic kidney disease, stage 4 (severe); E89.0 Postprocedural hypothyroidism; E78.5 Hyperlipidemia, unspecified; R00.0 Tachycardia, unspecified; N13.1 Hydronephrosis with ureteral stricture, not elsewhere classified; R03.0 Elevated blood-pressure reading, without diagnosis of hypertension; N26.1 Atrophy of kidney (terminal); E87.6 Hypokalemia; E83.51 Hypocalcemia; F41.9 Anxiety disorder, unspecified; B96.5 Pseudomonas (aeruginosa) (mallei) (pseudomallei) as the cause of diseases classified elsewhere; M19.90 Unspecified osteoarthritis, unspecified site; Y84.2 Radiological procedure and radiotherapy as the cause of abnormal reaction of the patient, or of later complication, without mention of misadventure at the time of the procedure; Z16.23 Resistance to quinolones and fluoroquinolones; Z80.0 Family history of malignant neoplasm of digestive organs; Z85.51 Personal history of malignant neoplasm of bladder; Z85.850 Personal history of malignant neoplasm of thyroid; Z85.828 Personal history of other malignant neoplasm of skin; Z85.048 Personal history of other malignant neoplasm of rectum, rectosigmoid junction, and anus; Z90.49 Acquired absence of other specified parts of digestive tract; Z92.21 Personal history of antineoplastic chemotherapy; Z92.3 Personal history of irradiation; Z93.2 Ileostomy status; Z93.6 Other artificial openings of urinary tract status
CPT/HCPCS: 50432; 71045; 80048; 80053; 81001; 83690; 83735; 84100; 84155; 85025; 85610; 85730; 87077; 87086; 87186; 96361; 96374; 96375; 99152; 99153; C1729; C1894; J0610; J0692; J0696; J0780; J1170; J2250; J2270; J2543; J3010; J7030; J7040; Q9967

== ENCOUNTER 2018-03-03 22:54 | Inpatient (IN) ==
--- NOTE | 2018-03-03 23:03 | ED ---
HPI General Chief Complaint: Abdominal Pain Stated Complaint: vomiting Time Seen by Provider: 03/03/18 23:02 Source: patient Mode of arrival: ambulatory Limitations: no limitations History of Present Illness HPI narrative: 72-year-old female came to the emergency room complaining of nausea and vomiting that started 2 hours prior to coming to the ER. Patient appears to be very anxious and holding the emesis bag and starts to retch and vomit in the middle of the history taking. She is also complaining of diffuse abdominal pain. Patient has significant past medical history of colon cancer, colostomy, bilateral nephrostomy secondary to bilateral ureteral strictures and bladder cancer. Patient has a MediPort and says that it gets accessed frequently for IV fluids since she tends to get dehydrated. Patient is also wearing 2 fentanyl patches. Patient is hypertensive upon arrival. Pain is nonradiating and no aggravating or relieving symptoms identified. She is afebrile currently. Patient says that she has been emptying her colostomy and nephrostomy bags regularly. Related Data Home Medications Medication Instructions Recorded Confirmed estradiol 1 mg PO DAILY 09/22/17 03/03/18 ceftazidime 1,000 mg IV DAILY 03/04/18 03/04/18 fentanyl 1 patch TRANSDERMAL Q72H 03/04/18 03/04/18 fentanyl 1 patch TRANSDERMAL Q72H 03/04/18 03/04/18 levothyroxine [Synthroid] 1 tab PO EVERY OTHER DAY 03/04/18 03/04/18 levothyroxine [Synthroid] 175 mcg PO EVERY OTHER DAY 03/04/18 03/04/18 sertraline mg PO DAILY 03/04/18 sodium bicarbonate 650 mg PO BID 03/04/18 03/04/18 Previous Rx's Medication Instructions Recorded hydrocodone-acetaminophen [Montalba] 1 tab PO Q4-6H PRN #10 tab 03/06/18 Allergies Allergy/AdvReac Type Severity Reaction Status Date / Time No Known Allergies Allergy Verified 12/20/17 12:14 Review of Systems ROS: all other systems reviewed are negative [facility] Medical History Medical History Anemia (Acute) Bladder CA in situ (Acute) Bowel obstruction (Acute) Colon cancer (Acute) Depression (Acute) History of blood product transfusion (Acute) History of hysterectomy (Acute) Hypothyroidism (Acute) Port catheter in place (Acute) Renal insufficiency (Acute) Thyroid ca (Acute) Surgical History Surgical History History of colectomy (Acute) History of thyroidectomy (Acute) Family History Family History Other Family history of Alzheimer's disease Family history of Parkinson disease Family history of breast cancer Family history of colon cancer Social History Social History Substance History: No History of Abuse Second Hand Smoke Exposure: No Smoking Status: Never smoker How Often Do You Have a Drink Containing Alcohol: 2 to 4 times a month Recent Travel in [facility] within the Last 8 Weeks: No Recent Out of Country Travel within the Last 8 Weeks: No Immunization History Tetanus Immunization: <5 Years Tetanus Immunization Year if Known: 2018 Exam Narrative Exam Narrative: GENERAL: Awake, alert, extremely anxious, moderate distress SKIN: Focused skin assessment warm/dry. HEAD: Atraumatic. Normocephalic. EYES: Pupils equal and round. No scleral icterus. No injection or drainage. ENT: No nasal bleeding or discharge. Mucous membranes pink and moist. NECK: Trachea midline. No JVD. CARDIOVASCULAR: Regular rate and rhythm. No murmur appreciated. RESPIRATORY: No accessory muscle use. Clear to auscultation. Breath sounds equal bilaterally. GASTROINTESTINAL: Abdomen soft, non-tender, nondistended. Hepatic and splenic margins not palpable. Colostomy, bilateral nephrostomy MUSCULOSKELETAL: No obvious deformities. No clubbing. No cyanosis. No edema. NEUROLOGICAL: Awake and alert. No obvious cranial nerve deficits. Motor grossly within normal limits. Normal speech. PSYCHIATRIC: Appropriate mood and affect; insight and judgment normal. Procedures Procedural Sedation Indications: other Presedation Evaluation: CT scan showing small bowel obstruction and a ventral hernia being the cause of it. Patient came in for abdominal pain and vomiting. ASA Class: ASA 2 Moderate Systemic Disease Preparation: hall monitor applied, pulse oximeter, capnometry used, supplemental O2 applied, suction/airway equipment at bedside and IV secured IV Etomidate Dose (mgs): 10 Patient Tolerated Procedure: well Complications: none Course Initial Documented Vital Signs Temperature 97.7 F 03/03/18 22:56 Pulse Rate 80 03/03/18 22:56 Respiratory Rate 18 03/03/18 22:56 Blood Pressure 212/88 H 03/03/18 22:56 Pulse Oximetry 100 03/03/18 22:56 Last Documented Vital Signs Temperature 98.2 F 03/06/18 12:00 Pulse Rate 83 03/06/18 12:00 Respiratory Rate 18 03/06/18 12:00 Blood Pressure 169/82 H 03/06/18 12:00 Pulse Oximetry 95 03/06/18 12:00 Medical Decision Making MDM Narrative Medical decision making narrative: 12:50 AM patient was requesting for pain medication. I have given her 1 mg of Dilaudid. Blood tests have resulted in appear to be improving significantly compared to her last renal function. Awaiting for the CAT scan to be done and resulted. Patient is also getting some IV fluid bolus. 3:17 AM based on the initial CAT scan report the hernia was tried to be reduced under conscious sedation. Patient was explained about the whole procedure. Patient tolerated the procedure well but a repeat CT showed that the hernia was still there. I initially spoke with Dr. Douglas who is patient's GI surgeon. However since the second CT report of protocol again. Have also ordered NG tube. Patient will need to be admitted and the surgeon will need to come in to take care of this at this point since it is beyond my scope. Patient will also get another liter of IV fluid bolus. 3:30 AM Case was discussed with Dr. Douglas and I explained to him about the non- reduction of the hernia. He wanted to go ahead and try the NG tube which in his opinion would decompression reduce the hernia. He would see the patient first thing in the morning he said. He wanted the patient to be admitted to the hospitalist. I have explained this to the patient. Awaiting for the hospitalist to call back. Medical Screen Exam Complete: Yes Emergency Medical Condition: Yes Lab Data Result diagrams: 03/05/18 04:56 03/05/18 04:56 Lab Results 03/03/18 03/03/18 03/03/18 Range/Units 23:10 23:20 23:20 WBC 8.9 (4.0-11.0) th/mm3 RBC 3.64 L (4.00-5.30) mil/mm3 Hgb 11.3 L (11.6-15.3) gm/dL Hct 34.4 L (35.0-46.0) % MCV 94.5 (80.0-100.0) fL MCH 30.9 (27.0-34.0) pg MCHC 32.7 (32.0-36.0) % RDW 14.7 (11.6-17.2) % Plt Count 279 (150-450) th/mm3 MPV 8.2 (7.0-11.0) fL Neut % (Auto) 79.8 H (16.0-70.0) % Lymph % (Auto) 11.7 (9.0-44.0) % Rhea % (Auto) 6.2 (0.0-8.0) % Eos % (Auto) 2.0 (0.0-4.0) % Baso % (Auto) 0.3 (0.0-2.0) % Neut # (Auto) 7.1 (1.8-7.7) th/mm3 Lymph # (Auto) 1.0 (1.0-4.8) th/mm3 Rhea # (Auto) 0.6 (0.0-0.9) th/mm3 Eos # (Auto) 0.2 (0.0-0.4) th/mm3 Baso # (Auto) 0.0 (0.0-0.2) th/mm3 WBC Differential . Differential Comment Auto diff final Sodium 141 (136-145) meq/L Potassium 4.1 (3.5-5.1) meq/L Chloride 110 H (98-107) meq/L Carbon Dioxide 20.6 L (21.0-32.0) meq/L Anion Gap 10 (5-15) meq/L BUN 23 H (7-18) mg/dL Creatinine 1.63 H (0.50-1.00) mg/dL Estimated GFR 31 L (>89) mL/min Random Glucose 119 H (74-106) mg/dL Calcium 8.9 (8.5-10.1) mg/dL Magnesium 1.5 (1.5-2.5) mg/dL Total Bilirubin 0.3 (0.2-1.0) mg/dL AST 18 (15-37) U/L ALT 16 (10-53) U/L Alkaline Phosphatase 86 (45-117) U/L Total Protein 8.0 (6.4-8.2) g/dL Albumin 3.4 (3.4-5.0) g/dL Lipase 162 (73-393) U/L Urine Color Yellow (Yellw/Straw) Urine Clarity Hazy H (Clear) Urine pH 6.0 (5.0-8.5) Ur Specific [place] 1.009 (1.002-1.035) Urine Protein Negative (Neg-Trace) mg/dL Urine Glucose (UA) Negative (Negative) mg/dL Urine Ketones Negative (Negative) mg/dL Urine Occult Blood Small H (Negative) Urine Nitrate Positive H (Negative) Urine Bilirubin Negative (Negative) Urine Urobilinogen Less than 2 (Less than 2) mg/dL Ur Leukocyte Esterase Moderate H (Negative) Urine RBC 2 (0-3) /hpf Urine WBC 15 H (0-5) /hpf Urine WBC Clumps Rare H (None) Ur Squamous Epith Cells (0-5) /hpf Amorphous Sediment Rare H (None) /hpf Urine Bacteria (None) /hpf Urine Mucus Moderate H (Occasional) /lpf Micro UA Comment Culture indicated Ur Microscopic Review Not Reportable Urine Culture Comments Culture indicated 03/03/18 03/05/18 03/05/18 Range/Units 23:20 04:56 04:56 WBC 8.4 (4.0-11.0) th/mm3 RBC 3.55 L (4.00-5.30) mil/mm3 Hgb 11.2 L (11.6-15.3) gm/dL Hct 33.9 L (35.0-46.0) % MCV 95.3 (80.0-100.0) fL MCH 31.6 (27.0-34.0) pg MCHC 33.2 (32.0-36.0) % RDW 14.3 (11.6-17.2) % Plt Count 239 (150-450) th/mm3 MPV 8.4 (7.0-11.0) fL Neut % (Auto) 79.7 H (16.0-70.0) % Lymph % (Auto) 11.3 (9.0-44.0) % Rhea % (Auto) 7.3 (0.0-8.0) % Eos % (Auto) 1.5 (0.0-4.0) % Baso % (Auto) 0.2 (0.0-2.0) % Neut # (Auto) 6.7 (1.8-7.7) th/mm3 Lymph # (Auto) 0.9 L (1.0-4.8) th/mm3 Rhea # (Auto) 0.6 (0.0-0.9) th/mm3 Eos # (Auto) 0.1 (0.0-0.4) th/mm3 Baso # (Auto) 0.0 (0.0-0.2) th/mm3 WBC Differential . Differential Comment Auto diff final Sodium 141 (136-145) meq/L Potassium 3.9 (3.5-5.1) meq/L Chloride 106 (98-107) meq/L Carbon Dioxide 27.7 (21.0-32.0) meq/L Anion Gap 7 (5-15) meq/L BUN 19 H (7-18) mg/dL Creatinine 1.81 H (0.50-1.00) mg/dL Estimated GFR 28 L (>89) mL/min Random Glucose 109 H (74-106) mg/dL Calcium 8.1 L D (8.5-10.1) mg/dL Magnesium (1.5-2.5) mg/dL Total Bilirubin (0.2-1.0) mg/dL AST (15-37) U/L ALT (10-53) U/L Alkaline Phosphatase (45-117) U/L Total Protein (6.4-8.2) g/dL Albumin (3.4-5.0) g/dL Lipase (73-393) U/L Urine Color Yellow (Yellw/Straw) Urine Clarity Cloudy H (Clear) Urine pH 7.0 (5.0-8.5) Ur Specific [place] 1.009 (1.002-1.035) Urine Protein 30 H (Neg-Trace) mg/dL Urine Glucose (UA) Negative (Negative) mg/dL Urine Ketones Negative (Negative) mg/dL Urine Occult Blood Small H (Negative) Urine Nitrate Negative (Negative) Urine Bilirubin Negative (Negative) Urine Urobilinogen Less than 2 (Less than 2) mg/dL Ur Leukocyte Esterase Large H (Negative) Urine RBC 12 H (0-3) /hpf Urine WBC (0-5) /hpf Urine WBC Clumps Many H (None) Ur Squamous Epith Cells <1 (0-5) /hpf Amorphous Sediment (None) /hpf Urine Bacteria Occasional H (None) /hpf Urine Mucus Few H (Occasional) /lpf Micro UA Comment Cath-culture ind Ur Microscopic Review Not Reportable Urine Culture Comments Cath-cult indicated Imaging Data Radiologist's impression: Abdomen/Pelvis CT 03/04/18 00:06 CONCLUSION: 1. There are multiple loops of fluid-filled mildly dilated bowel now noted in the lower abdomen and pelvis. This of concern for early or partial bowel obstruction. There is an anterior abdominal wall hernia again noted containing a loop of bowel. This could be the cause of obstruction. 2. Postsurgical changes are again noted status post partial colectomy with stable extensive post surgical change in the presacral region. 3. Bilateral percutaneous nephrostomy tubes with no acute hydronephrosis. The previously noted left hydronephrosis has resolved. 4. Left-sided colostomy. Abdomen/Pelvis CT 03/04/18 02:13 CONCLUSION: 1. No significant change in the bowel gas pattern since the prior study. Multiple loops of dilated fluid-containing bowel are again noted. 2. Stable appearing anterior abdominal wall hernia containing loop of bowel. The size of the bowel loops are unchanged. Abdomen X-Ray 03/04/18 04:27 CONCLUSION: 1. Relative paucity of bowel gas with nonobstructive bowel gas pattern. 2. Nasogastric tube in place. 3. Bilateral percutaneous nephrostomy tubes in place. Discharge Plan Discharge Disposition Patient Disposition: ED Admit(ED Internal Use Only) Discharge Condition Condition: Stable Discharge Order Discharge Orders: Discharge Order (Routine); Ordered 03/06/18 Ordered By: Estrella Oviedo ED Use Only Admit Order (Routine); Ordered 03/04/18 Ordered By: Tristen Bedolla Discharge Details Anticipated Discharge Date: 03/06/18 Discharge Comment: DC when able to tolerate food and cleared by Dr Douglas CRS Physicians Team ED Provider: Tristen Bedolla Primary Care Provider: Addy Oakley Attending Provider: Estrella Oviedo Other Providers: Daniel Douglas Status ED Status: Left Department Discharge Information Discharge Date/Time: 03/04/18 05:48
[2018-03-03] MEDS ORDERED: Sod Chloride 0.9% Inj 1,000 ML IV.SIG ONE (23:13)
[2018-03-03] MEDS ORDERED: HYDROmorphone PF Inj 2 MG/ML Vial IV.PUSH ONE (23:44)
[2018-03-03 23:48] LABS: Amorphous Sediment,Urine Rare /hpf; Bilirubin,Urine Negative (Negative); Clarity,Urine Hazy (Clear); Color,Urine Yellow (Yellw/Straw); Glucose,Urine (UA) Negative (Negative); Leukocyte Esterase,Urine Moderate (Negative); Mucus,Urine Moderate /lpf (Occasional); Nitrite,Urine Positive (Negative); Specific Gravity,Urine 1.009 (1.002-1.035)
[2018-03-03 23:57] LABS: Bacteria,Urine Occasional /hpf; Bilirubin,Urine Negative (Negative); Clarity,Urine Cloudy (Clear); Color,Urine Yellow (Yellw/Straw); Glucose,Urine (UA) Negative (Negative); Leukocyte Esterase,Urine Large (Negative); Mucus,Urine Few /lpf (Occasional); Nitrite,Urine Negative (Negative); Specific Gravity,Urine 1.009 (1.002-1.035); Squamous Epithelial Cell,Urine <1 /hpf (0-5)
[2018-03-03 23:58] LABS: Baso % (Auto) 0.3 % (0.0-2.0); Eos # (Auto) 0.2 th/mm3 (0.0-0.4); Hematocrit 34.4 % (35.0-46.0); Hemoglobin 11.3 gm/dL (11.6-15.3); Lymph % (Auto) 11.7 % (9.0-44.0); Mean Corpuscular HGB Conc 32.7 % (32.0-36.0); Mean Corpuscular Hemoglobin 30.9 pg (27.0-34.0); Mean Corpuscular Volume 94.5 fL (80.0-100.0); Mean Platelet Volume 8.2 fL (7.0-11.0); Mono # (Auto) 0.6 th/mm3 (0.0-0.9); Mono % (Auto) 6.2 % (0.0-8.0); Neut # (Auto) 7.1 th/mm3 (1.8-7.7); Neut % (Auto) 79.8 % (16.0-70.0); Platelet Count 279 th/mm3 (150-450); Red Blood Count 3.64 mil/mm3 (4.00-5.30); Red Cell Distribution Width 14.7 % (11.6-17.2); White Blood Count 8.9 th/mm3 (4.0-11.0)
[2018-03-04 00:03] LABS: Albumin 3.4 g/dL (3.4-5.0); Anion Gap 10 meq/L (5-15); Aspartate Aminotransferase 18 U/L (15-37); Blood Urea Nitrogen 23 mg/dL (7-18); Calcium 8.9 mg/dL (8.5-10.1); Carbon Dioxide 20.6 meq/L (21.0-32.0); Chloride 110 meq/L (98-107); Glomerular Filtration Rate 31 mL/min (>89); Glucose,Random 119 mg/dL (74-106); Lipase 162 U/L (73-393); Magnesium 1.5 mg/dL (1.5-2.5); Potassium 4.1 meq/L (3.5-5.1); Sodium 141 meq/L (136-145)
[2018-03-04 00:04] LABS: Alanine Aminotransferase 16 U/L (10-53)
[2018-03-04 00:06] LABS: Alkaline Phosphatase 86 U/L (45-117)
--- NOTE | 2018-03-04 01:24 | CT ---
EXAM DATE: 03/04/2018 1:07 AM EST AGE/SEX: 72 years / Female INDICATIONS: Abdominal pain, nausea, and vomiting. History of colon cancer with partial colectomy an d colostomy placement. Patient also has a history of Renal calculi and stent placements. CLINICAL DATA: This is the patient's initial encounter. Patient reports that signs and symptoms have been present for 1 day and indicates a pain score of 6/10. MEDICAL/SURGICAL HISTORY: Carcinoma, bladder. Carcinoma, colon. Carcinoma, thyroid. Anemia Hysterectomy. Thyroidectomy. Colon resection. RADIATION DOSE: 7.9 CTDI (mGy) COMPARISON: [facility] – [place] ABDOMEN & PELVIS W/O CONTRAST, 07/24/2017. . TECHNIQUE: Multiple contiguous axial images were obtained through the abdomen. Images were obtained using multiple row detector helical technique. Using automated exposure control and adjustment of the mA and/or kV according to patient size, radiation dose was kept as low as reasonably achievable to o btain optimal diagnostic quality images. DICOM format image data is available electronically for rev iew and comparison. FINDINGS: Lower Lungs: The visualized lower lungs are clear. Liver: The liver has a homogeneous density without space-occupying lesion. There is no dilation of th e biliary tree. The gallbladder remains unremarkable. Spleen: Homogeneous density without enlargement. Pancreas: Unremarkable without mass or calcification. Kidneys: The kidneys remain abnormal in appearance with bilateral percutaneous stent catheter is now noted. The previously noted left hydronephrosis has resolved. The previous noted left internal stent catheter has been removed. There is no acute hydronephrosis identified. Right kidney remains mildly atrophic and lobular in appearance. Adrenal Glands: Unremarkable. Aorta: The aorta and proximal iliac vessels are grossly unremarkable without aneurysmal dilation. Bowel/Mesentery: There is a small hiatal hernia. No oral contrast was given limiting the sensitivity of the exam. Postsurgical changes are again noted status post partial colectomy with anastomotic stap les. There are multiple loops of fluid-filled bowel now noted which are more prominent than on the pr ior study. These are located in the lower abdomen and pelvis and measure up to approximately 3.8 cm i n greatest diameter. One of the loops extending into the hernia appears fluid-filled and mildly dilat ed and increased in size from the prior study. There are several small air-fluid levels. An ostomy is again noted in the left lower quadrant. Extensive postsurgical changes noted in the presacral region with scarring. There is no free air. Abdominal Wall: An anterior abdominal wall hernia is again noted containing a loop of bowel extends into the subcutaneous fat. Retroperitoneum: No evidence of adenopathy in the retrocrural, para-aortic, or deep pelvic regions. Bladder: Contours are smooth. Reproductive Organs: No abnormal masses or calcifications seen. Inguinal: The inguinal region is unremarkable without evidence of adenopathy. Bony Structures: Osteopenia, degenerative change and mild scoliosis are present. CONCLUSION: 1. There are multiple loops of fluid-filled mildly dilated bowel now noted in the lower abdomen and pelvis. This of concern for early or partial bowel obstruction. There is an anterior abdominal wall hernia again noted containing a loop of bowel. This could be the cause of obstruction. 2. Postsurgical changes are again noted status post partial colectomy with stable extensive post jennifer gical change in the presacral region. 3. Bilateral percutaneous nephrostomy tubes with no acute hydronephrosis. The previously noted left hydronephrosis has resolved. 4. Left-sided colostomy. Electronically signed by: Kana Sanchez MD Board Certified Radiologist 03/04/2018 1:23 AM EST
[2018-03-04] MEDS ORDERED: HYDROmorphone PF Inj 2 MG/ML Vial IV.PUSH ONE (01:28)
[2018-03-04] MEDS ORDERED: Etomidate Inj 20 MG/10 ML Ampul IV.PUSH ONE (01:56)
[2018-03-04] MEDS ORDERED: Etomidate Inj 40 MG/20 ML Vial IV.PUSH ONE (01:57)
--- NOTE | 2018-03-04 03:01 | CT ---
EXAM DATE: 03/04/2018 2:27 AM EST AGE/SEX: 72 years / Female INDICATIONS: Post hernia reduction. Patient complains of abdominal pain, nausea and vomiting. CLINICAL DATA: This is the patient's initial encounter. Patient reports that signs and symptoms have been present for 1 day and indicates a pain score of 10/10. MEDICAL/SURGICAL HISTORY: Carcinoma, bladder. Carcinoma, colon. Carcinoma, thyroid. Anemia. Nephrostomy tube, left. Nephrostomy tube, right. Thyroidectomy. Colectomy. RADIATION DOSE: 7.61 CTDI (mGy) COMPARISON: [facility] – [place], CT ABDOMEN & PELVIS W/O CONTRAST, 03/04/2018. . TECHNIQUE: Multiple contiguous axial images were obtained through the abdomen. Images were obtained using multiple row detector helical technique. Using automated exposure control and adjustment of the mA and/or kV according to patient size, radiation dose was kept as low as reasonably achievable to o btain optimal diagnostic quality images. DICOM format image data is available electronically for rev iew and comparison. FINDINGS: Lower Lungs: The visualized lower lungs are clear. Liver: The liver has a homogeneous density without space-occupying lesion. There is no dilation of th e biliary tree. The gallbladder is unremarkable. Spleen: Homogeneous density without enlargement. Pancreas: Unremarkable without mass or calcification. Kidneys: Bilateral percutaneous tubes and catheters remain in place. There is no acute hydronephrosi s. Adrenal Glands: Unremarkable. Aorta: The aorta and proximal iliac vessels are grossly unremarkable without aneurysmal dilation. Bowel/Mesentery: No oral contrast was given limiting the sensitivity of examination. The gas pattern remains abnormal with multiple loops of borderline to mildly dilated fluid containing bowel mid and lower abdomen. One of the loops extends into the anterior abdominal wall hernia is unchanged in appea jeromy. Postsurgical changes again noted greatest in the presacral region. There are anastomotic stapl es as well. A colostomy remains in the left anterior abdominal wall. Abdominal Wall: An anterior abdominal wall hernias again noted which is unchanged in appearance. Thi s is again noted to contain a loop of bowel is unchanged. Retroperitoneum: No evidence of adenopathy in the retrocrural, para-aortic, or deep pelvic regions. Bladder: Contours are smooth. Reproductive Organs: No abnormal masses or calcifications seen. Inguinal: The inguinal region is unremarkable without evidence of adenopathy. Bony Structures: Unremarkable. CONCLUSION: 1. No significant change in the bowel gas pattern since the prior study. Multiple loops of dilated f luid-containing bowel are again noted. 2. Stable appearing anterior abdominal wall hernia containing loop of bowel. The size of the bowel l oops are unchanged. Electronically signed by: Kana Sanchez MD Board Certified Radiologist 03/04/2018 3:00 AM EST
[2018-03-04] MEDS ORDERED: Sod Chloride 0.9% Inj 1,000 ML IV.SIG SCH (03:30)
[2018-03-04] MEDS ORDERED: Acetaminophen 325 MG Tablet PO PRN (03:44)
[2018-03-04] MEDS: KCL 20 mEq/D5W/NaCl 0.45% Inj 1,000 ML IV.CONT SCH ×3 (04:30→17:13)
[2018-03-04] MEDS ORDERED: hydrALAZINE HCl Inj 20 MG/ML Vial IV.PUSH ONE (04:31)
[2018-03-04] MEDS ORDERED: Labetalol HCl Inj 100 MG/20 ML Vial IV.PUSH ONE (04:42)
--- NOTE | 2018-03-04 05:06 | XR ---
EXAM DATE: 03/04/2018 4:43 AM EST AGE/SEX: 72 years / Female INDICATIONS: Abdominal pain. CLINICAL DATA: This is the patient's initial encounter. Patient reports that signs and symptoms have been present for 1 day and indicates a pain score of 10/10. MEDICAL/SURGICAL HISTORY: . Carcinoma, bladder. Carcinoma, colon. Carcinoma, thyroid. Anemia. . Nephrostomy tube, right. Thyroidectomy. Colectomy. Nephrostomy tube left. COMPARISON: No prior exams available for comparison. FINDINGS: A single AP portable view of the chest was obtained and demonstrate bilateral percutaneous nephrostom y tubes. A nasogastric tube is present with the tip in the stomach. There are multiple surgical clips and nahomi in the pelvis and lower left abdomen. There is relative paucity of bowel gas with gas an d stool noted segmentally in the colon. There is no evidence of free air or mass effect. The lung bas es are clear. The bony structures are intact. CONCLUSION: 1. Relative paucity of bowel gas with nonobstructive bowel gas pattern. 2. Nasogastric tube in place. 3. Bilateral percutaneous nephrostomy tubes in place. Electronically signed by: Kana Sanchez MD Board Certified Radiologist 03/04/2018 5:05 AM EST
--- NOTE | 2018-03-04 05:43 | P.HPIM ---
History of Present Illness Primary Care Physician: Addy Oakley MD Chief complaint: Vomiting blood History of presenting complaint: History from patient, ER physician communication, and review of medical records. Patient reported that last night she started having nausea, vomiting x5. Denies any blood in her vomitus. She wears a colostomy bag. She denies any constipation but noted that her colostomy output has been low in the past few days as well. Reports of severe abdominal pain which is mainly in the mapped mostly diffuse. Denies any fever. However states that she has been sweating a lot. Denies any recent cough/chest pain/palpitations/shortness of breath/dizziness/ syncopal episodes. Denies any hematemesis/hematochezia/melena/hematuria. She reports that she has had several episodes of bowel obstructions that required surgical intervention and therefore decided to come to hospital. She drove herself to the hospital. However she stated that she vomited again on the car as well. Patient has chronic bilateral nephrostomy tubes since 2009. Patient states that recently, urine sample was obtained from her nephrostomy tubes and she was found to have UTI and antibiotics were started by her oncologist at [facility]. She has IV back of her antibiotic , ceftazidime She states that she has had frequent UTIs and required IV fluid boluses given at the clinic as well. At some points, her bladder doctors would obtain urine sample from aspiration from the bladder although at times it would be straight from the nephrostomy tube. Review of system: Complete review of system is performed and is negative apart from what is mentioned in HPI Past medical history: History of colon cancer status post resection and colostomy bag in 1994. 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 Status post chemotherapy and radiation therapy. 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 History of thyroid cancer status post thyroidectomy and radiation therapy treatment in early 1999. History of bladder cancer status post resection of the tumor, with chemo injection into bladder in early 1999. History of small bowel obstruction multiple times and surgeries requiring lysis of adhesions. Tachycardia Denies any other medical history such as hypertension/diabetes/CAD/CHF/lung problem/liver problems/blood clot/stroke/seizures. Past surgical history: Appendectomy Cholecystectomy Partial colon resection status post colostomy in 1994 Bilateral nephrostomy tube placement in 2010 Thyroidectomy Resection of bladder tumor Social history: Denies smoking/alcohol abuse/drug abuse. Family history: Maternal grandmother and maternal aunt both had breast cancer. Her mom has Parkinson's disease and dementia. Home medications: Patient reports that she has list of her home medications and that her nurse had gone through that with her. Medication reconciliation reviewed. Inpatient Certification Inpatient Certification: I certify that the inpatient services were ordered in accordance with Medicare regulations governing the order. This includes certification that hospital inpatient services are reasonable and necessary and in the case of services not specified as inpatient-only under 42 CFR 419.22(n), that they are appropriately provided as inpatient services in accordance to with the 2-midnight benchmark under 43 CFR 412.3(e) Estimated Total Length of Stay (Days): 4 Plans for Post Hospital Care: Home Review of Systems Review of Systems: all other systems reviewed are negative COUNT INCLUDES THE [facility] Medical History Medical History Anemia (Acute) Bladder CA in situ (Acute) Bowel obstruction (Acute) Colon cancer (Acute) Depression (Acute) History of blood product transfusion (Acute) History of hysterectomy (Acute) Hypothyroidism (Acute) Port catheter in place (Acute) Renal insufficiency (Acute) Thyroid ca (Acute) Surgical History Surgical History History of colectomy (Acute) History of thyroidectomy (Acute) Social History Social History Substance History: No History of Abuse Second Hand Smoke Exposure: No Smoking Status: Never smoker How Often Do You Have a Drink Containing Alcohol: Never Recent Travel in [facility] within the Last 8 Weeks: No Recent Out of Country Travel within the Last 8 Weeks: No Immunization History Tetanus Immunization: <5 Years Tetanus Immunization Year if Known: 2018 Medications and Allergies Allergies Allergy/AdvReac Type Severity Reaction Status Date / Time No Known Allergies Allergy Verified 12/20/17 12:14 Home Medications Medication Instructions Recorded Confirmed Type estradiol 1 mg PO DAILY 09/22/17 03/03/18 History hydrocodone-acetaminophen 5 mg PO Q2-3H PRN 09/22/17 03/03/18 History ceftazidime 1,000 mg IV DAILY 03/04/18 03/04/18 History fentanyl 1 patch TRANSDERMAL Q72H 03/04/18 03/04/18 History fentanyl 1 patch TRANSDERMAL Q72H 03/04/18 03/04/18 History levothyroxine [Synthroid] 1 tab PO EVERY OTHER DAY 03/04/18 03/04/18 History levothyroxine [Synthroid] 175 mcg PO EVERY OTHER DAY 03/04/18 03/04/18 History sertraline mg PO DAILY 03/04/18 History sodium bicarbonate 650 mg PO BID 03/04/18 03/04/18 History Active Medications: Active Medications Acetaminophen (Tylenol) 650 mg PO Q4H PRN PRN Reason: Temp > 100.4 Hydromorphone HCl (Dilaudid Pf Inj) 2 mg IV.PUSH Q4H PRN PRN Reason: Acute Pain Potassium Chloride/Dextrose/Sod Cl (D5w/1/2ns + Kcl 20 Meq Inj) 1,000 mls @ 100 mls/hr IV.CONT .Q10H CAROLINE Last Admin: 03/04/18 04:30 Dose: 100 mls/hr Ondansetron HCl (Zofran Inj) 4 mg IV.PUSH Q6H PRN PRN Reason: NAUSEA OR VOMITING Sodium Chloride (Ns Flush) 2 ml IV.FLUSH PRN PRN PRN Reason: FLUSH AFTER USING IV ACCESS Sodium Chloride (Ns Flush) 2 ml IV.FLUSH BID CAROLINE Sodium Chloride (Ns Flush) 2 ml IV.FLUSH PRN PRN PRN Reason: FLUSH AFTER USING IV ACCESS GENERAL: This is a well-nourished, well-developed patient, in no apparent distress. Does not want to talk much, likely from low pain tolerance. CARDIOVASCULAR: Regular rate and rhythm without murmurs, gallops, or rubs. RESPIRATORY: Clear to auscultation. Breath sounds equal bilaterally. No wheezes , rales, or rhonchi. GASTROINTESTINAL: Abdomen soft, tenderness diffusely, nondistended. decreased bowel sounds MUSCULOSKELETAL: Extremities without clubbing, cyanosis, or edema. NEURO: Alert & Oriented x4 to person, place, time, situation. Moves all ext x4 Physical Exam Vital signs: Last Vital Signs Temp 98.2 F 03/04/18 04:31 Pulse 69 03/04/18 05:10 Resp 17 03/04/18 05:10 BP 167/72 H 03/04/18 05:10 Pulse Ox 98 03/04/18 05:10 Intake & Output 03/01/18 03/02/18 03/03/18 03/04/18 06:59 06:59 06:59 06:59 Intake Total 1999 Balance 1999 Weight 68.039 kg Results Labs CBC & Chem 7: 03/03/18 23:20 03/03/18 23:20 Imaging Impressions Abdomen/Pelvis CT 03/04/18 00:06 CONCLUSION: 1. There are multiple loops of fluid-filled mildly dilated bowel now noted in the lower abdomen and pelvis. This of concern for early or partial bowel obstruction. There is an anterior abdominal wall hernia again noted containing a loop of bowel. This could be the cause of obstruction. 2. Postsurgical changes are again noted status post partial colectomy with stable extensive post surgical change in the presacral region. 3. Bilateral percutaneous nephrostomy tubes with no acute hydronephrosis. The previously noted left hydronephrosis has resolved. 4. Left-sided colostomy. Abdomen/Pelvis CT 03/04/18 02:13 CONCLUSION: 1. No significant change in the bowel gas pattern since the prior study. Multiple loops of dilated fluid-containing bowel are again noted. 2. Stable appearing anterior abdominal wall hernia containing loop of bowel. The size of the bowel loops are unchanged. Abdomen X-Ray 03/04/18 04:27 CONCLUSION: 1. Relative paucity of bowel gas with nonobstructive bowel gas pattern. 2. Nasogastric tube in place. 3. Bilateral percutaneous nephrostomy tubes in place. Caprini VTE Risk Assessment Caprini VTE Risk Assessment: Moderate/High Risk (score >= 2) Caprini Risk Assessment Model: Point Value = 1 Point Value = 2 Point Value = 3 Point Value = 5 Age 41-60 Minor surgery BMI > 25 kg/m2 Swollen legs Varicose veins or History of unexplained or recurrent spontaneous Oral contraceptives or hormone replacement Sepsis (< 1 month) Serious lung disease, including pneumonia (< 1 month) Abnormal pulmonary function Acute myocardial infarction Congestive heart failure (< 1 month) History of inflammatory bowel disease Medical patient at bed rest Age 61-74 Arthroscopic surgery Major open surgery (> 45 min) Laparoscopic surgery (> 45 min) Malignancy Confined to bed (> 72 hours) Immobilizing plaster cast Central venous access Age >= 75 History of VTE Family history of VTE Factor V Leiden Prothrombin [id number] Lupus anticoagulant Anticardiolipin antibodies Elevated serum homocysteine Heparin-induced thrombocytopenia Other congenital or acquired thrombophilia Stroke (< 1 month) Elective arthroplasty Hip, pelvis, or leg fracture Acute spinal cord injury (< 1 month) Prophylaxis Regimen: Total Risk Factor Score Risk Level Prophylaxis Regimen 0-1 Low Early ambulation 2 Moderate Order ONE of the following: *Sequential Compression Device (SCD) *Heparin 5000 units SQ BID 3-4 Higher Order ONE of the following medications: *Heparin 5000 units SQ TID *Enoxaparin/Lovenox 40 mg SQ daily (WT < 150 kg, CrCl > 30 mL/min) *Enoxaparin/Lovenox 30 mg SQ daily (WT < 150 kg, CrCl > 10-29 mL/min) *Enoxaparin/Lovenox 30 mg SQ BID (WT < 150 kg, CrCl > 30 mL/min) AND/OR *Sequential Compression Device (SCD) 5 or more Highest Order ONE of the following medications: *Heparin 5000 units SQ TID (Preferred with Epidurals) *Enoxaparin/Lovenox 40 mg SQ daily (WT < 150 kg, CrCl > 30 mL/min) *Enoxaparin/Lovenox 30 mg SQ daily (WT < 150 kg, CrCl > 10-29 mL/min) *Enoxaparin/Lovenox 30 mg SQ BID (WT < 150 kg, CrCl > 30 mL/min) AND *Sequential Compression Device (SCD) Assessment and Plan Plan Impression: Small bowel obstruction secondary to incarcerated hernia Intractable abdominal pain secondary to obstruction Recent UTI on ceftazidime. Accelerated hypertension secondary to pain History of colon cancer status post resection and colostomy bag in 1994. 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 Status post chemotherapy and radiation therapy. 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 History of thyroid cancer status post thyroidectomy and radiation therapy treatment in early 1999. History of bladder cancer status post resection of the tumor, with chemo injection into bladder in early 1999. History of small bowel obstruction multiple times and surgeries requiring lysis of adhesions. Tachycardia Plan: Patient's case was discussed with colorectal surgeon grounds person with her colorectal surgeon Dr. Douglas by ER physician. N.p.o. IV hydration. NG tube placed and will put on low intermittent suction. Pain control. We will continue ceftazidime for UTI coverage. Patient has so far received 3 doses at home. Continue fentanyl patch at home dose. Dilaudid 2 mg IV every 3 hours as needed for severe pain. DVT prophylaxis with SCD
[2018-03-04] MEDS ORDERED: CEFTAZIDIME 1000 MG IV.SIG SCH (09:00)
[2018-03-04] MEDS ORDERED: ESTRADIOL 1 MG PO SCH (09:00)
--- NOTE | 2018-03-04 09:26 | MB ---
cc: Daniel Douglas MD, Andrew H MD DATE: 03/04/2018 REASON FOR CONSULTATION: Nausea, vomiting, possible bowel obstruction. HISTORY OF PRESENT ILLNESS: Ms. Lopez is a very pleasant 72-year-old female with extensive medical and surgical history related to previous colorectal surgery with retroperitoneal radiation fibrosis. She initially had colon cancer, and has been treated recently with multiple reconstructions ending up with a colostomy and bilateral nephrostomy tubes due to a retroperitoneal fibrosis. The patient had been doing well and followed in the office intermittently for a ventral hernia. The day prior to admission, she started to develop some crampy abdominal pain, noted severe onset of pain around the umbilicus, and then began having nausea and vomiting. With the emesis, she had more abdominal pain, and presented to the emergency room for evaluation. Denies any hematemesis. No output from the colostomy. Denies any fever. No recent travel. No other illness at home. The patient is on IV fluids a couple times a week by Dr. Beckman to prevent electrolyte imbalance and dehydration. The patient was seen in the emergency room, had a CT scan that showed a ventral hernia with a loop of bowel in the hernia, and she was admitted for nasogastric tube decompression and intravenous fluid replacement. Please refer to the history and physical, and ER documentation for more complete past medical and surgical history. PHYSICAL EXAMINATION: GENERAL: A very pleasant older female in no acute distress. HEENT: Remarkable for very dry, but pink membranes. Nonicteric sclerae. NECK: Supple without gross adenopathy. LUNGS: Relatively clear, symmetrical expanding. HEART: Regular rhythm. ABDOMEN: Soft. Very little distention. No tympany. Midline incision does show a hernia, which may be reducible, but not clearly reduced. Colostomy is pink, and the bag is empty. Minimal tenderness to palpation. No masses appreciated. EXTREMITIES: Showed no cyanosis or clubbing. 1+ pedal edema. LABORATORY STUDIES: White count was 8.9, hemoglobin 11.3, platelet count 279. Electrolytes remarkable for BUN of 23, creatinine of 1.63. Normal liver function tests. IMAGING: A CT scan reviewed, showing a nonspecific dilation of the small bowel with a ventral hernia with a loop of bowel probably in the hernia. No obvious signs of obstruction. IMPRESSION AND PLAN: A 72-year-old female with multiple abdominal surgeries, on chronic IV fluids for dehydration, who presents with possible small-bowel obstruction secondary to her ventral hernia. Appears to be reduced at this point, and her pain is markedly diminished. Would pull the nasogastric tube back because it is in too far, and see if she can tolerate liquids. Out of bed ambulation. She has a mother on hospice and would prefer not to have surgery at the present time, if not urgently needed. We will see if she can tolerate liquids, keep the hernia reduced, and possibly plan elective surgery sometime in the near future. MD KIMBERLEY [place]/ , 08:51 AM , 09:00 AM
[2018-03-04] MEDS: Levothyroxine 150 MCG Tablet PO SCH (10:07)
[2018-03-04] MEDS: Sertraline 50 MG Tablet PO SCH (10:07)
[2018-03-04] MEDS: Sodium Bicarbonate 650 MG Tablet PO SCH ×2 (10:08→21:03)
[2018-03-04] MEDS ORDERED: Phenol 1.4% 180 ML Spray Bottle OROPHARYNG PRN (23:27)
[2018-03-04] MEDS: HYDROmorphone PF Inj 2 MG/ML Vial IV.PUSH PRN (23:50)
[2018-03-05] MEDS: KCL 20 mEq/D5W/NaCl 0.45% Inj 1,000 ML IV.CONT SCH ×4 (01:04→20:54)
[2018-03-05] MEDS ORDERED: Levothyroxine 100 MCG Tablet PO SCH (06:00)
[2018-03-05] MEDS ORDERED: Levothyroxine 75 MCG Tablet PO SCH (06:00)
[2018-03-05 06:20] LABS: Baso % (Auto) 0.2 % (0.0-2.0); Eos # (Auto) 0.1 th/mm3 (0.0-0.4); Eos % (Auto) 1.5 % (0.0-4.0); Hematocrit 33.9 % (35.0-46.0); Hemoglobin 11.2 gm/dL (11.6-15.3); Lymph # (Auto) 0.9 th/mm3 (1.0-4.8); Lymph % (Auto) 11.3 % (9.0-44.0); Mean Corpuscular HGB Conc 33.2 % (32.0-36.0); Mean Corpuscular Hemoglobin 31.6 pg (27.0-34.0); Mean Corpuscular Volume 95.3 fL (80.0-100.0); Mean Platelet Volume 8.4 fL (7.0-11.0); Mono # (Auto) 0.6 th/mm3 (0.0-0.9); Mono % (Auto) 7.3 % (0.0-8.0); Neut # (Auto) 6.7 th/mm3 (1.8-7.7); Neut % (Auto) 79.7 % (16.0-70.0); Platelet Count 239 th/mm3 (150-450); Red Blood Count 3.55 mil/mm3 (4.00-5.30); Red Cell Distribution Width 14.3 % (11.6-17.2); White Blood Count 8.4 th/mm3 (4.0-11.0)
[2018-03-05 06:46] LABS: Calcium 8.1 mg/dL (8.5-10.1); Carbon Dioxide 27.7 meq/L (21.0-32.0); Potassium 3.9 meq/L (3.5-5.1)
[2018-03-05] MEDS: Sodium Bicarbonate 650 MG Tablet PO SCH ×2 (10:40→20:53)
[2018-03-05] MEDS: Sertraline 50 MG Tablet PO SCH (10:40)
[2018-03-05] MEDS: HYDROmorphone PF Inj 2 MG/ML Vial IV.PUSH PRN ×4 (10:45→23:09)
--- NOTE | 2018-03-05 15:03 | P.DS ---
DS: Providers Date of admission: 03/04/18 03:42 Primary care physician: Addy Oakley MD Consults: 03/04/18 03:47 Consult to Colorectal Surgery Routine Consulting Provider: Daniel Douglas Shoe Trimmer:: Daniel Douglas Patient known to:: Daniel Douglas Reason for Consultation: small bowel obstruction with incarcerated hernia. Pt known to Dr Douglas Notified:: Office Spoke with:: YUE Date Notified:: 03/04/18 Time Notified:: 04:02 Ordering Provider: KERRY MYERS: Summary The patient is very pleasant 72-year-old female who presented with small bowel obstruction secondary to incarcerated hernia. Intractable abdominal pain secondary to obstruction. She has a history of recent UTI on ceftazidime has antibiotics at home she will continue. Accelerated hypertension secondary to pain on admission. Patient is status post resection: Resection and colostomy back in 1994 secondary to colon cancer with metastasis. Patient with history of multiple small bowel obstructions and multiple surgeries in the past requiring lysis of adhesions. Colorectal surgeon Dr. Douglas was consulted who evaluated the patient. Patient had a NG tube placed and she improved without any surgical intervention patient was able to tolerate regular diet and was cleared by colorectal surgery to follow-up as outpatient. Patient improved, discharged home in stable condition to follow-up with PCP and consultants as outpatient Small bowel obstruction secondary to incarcerated hernia Intractable abdominal pain secondary to obstruction Recent UTI on ceftazidime. Accelerated hypertension secondary to pain History of colon cancer status post resection and colostomy bag in 1994. 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 Status post chemotherapy and radiation therapy. 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 History of thyroid cancer status post thyroidectomy and radiation therapy treatment in early 1999. History of bladder cancer status post resection of the tumor, with chemo injection into bladder in early 1999. History of small bowel obstruction multiple times and surgeries requiring lysis of adhesions. Tachycardia Plan: Patient's case was discussed with colorectal surgeon informatics application analyst with her colorectal surgeon Dr. Douglas by ER physician. IV hydration. NG tube placed and will put on low intermittent suction. Pain control. We will continue ceftazidime for UTI coverage. Patient has so far received 3 doses at home. Continue fentanyl patch at home dose. Dilaudid 2 mg IV every 3 hours as needed for severe pain. DVT prophylaxis with SCD E-[facility] Prescription Drug Monitoring Database has been queried and verified prior to prescribing the controlled substance. Acute pain exception. This patient has normal, predicted, physiological, and time limited response to an adverse mechanical stimulus associated with surgery, trauma, or acute illness as described in my notes. There is a lack of alternative treatment options other than to include the prescribed narcotic treatment for this condition. Time Spent with Patient Total time spent providing and/or coordinating discharge services:>30 min Exam Narrative Exam Narrative: GENERAL: This is a well-nourished, well-developed patient, in no apparent distress. CARDIOVASCULAR: Regular rate and rhythm without murmurs, gallops, or rubs. RESPIRATORY: Clear to auscultation. Breath sounds equal bilaterally. No wheezes , rales, or rhonchi. GASTROINTESTINAL: Abdomen soft, no tenderness, nondistended. Normal BS. MUSCULOSKELETAL: Extremities without clubbing, cyanosis, or edema. NEURO: Alert & Oriented x4 to person, place, time, situation. Moves all ext x4 Results Labs on day of discharge: Labs from last 24 hours 03/05/18 03/05/18 03/03/18 04:56 04:56 23:10 WBC 8.4 RBC 3.55 L Hgb 11.2 L Hct 33.9 L MCV 95.3 MCH 31.6 MCHC 33.2 RDW 14.3 Plt Count 239 MPV 8.4 Neut % (Auto) 79.7 H Lymph % (Auto) 11.3 Sutter % (Auto) 7.3 Eos % (Auto) 1.5 Baso % (Auto) 0.2 Neut # (Auto) 6.7 Lymph # (Auto) 0.9 L Sutter # (Auto) 0.6 Eos # (Auto) 0.1 Baso # (Auto) 0.0 WBC Differential . Differential Comment Auto diff final Sodium 141 Potassium 3.9 Chloride 106 Carbon Dioxide 27.7 Anion Gap 7 BUN 19 H Creatinine 1.81 H Estimated GFR 28 L Random Glucose 109 H Calcium 8.1 L D Urine Color Yellow Urine Clarity Hazy H Urine pH 6.0 Ur Specific [place] 1.009 Urine Protein Negative Urine Glucose (UA) Negative Urine Ketones Negative Urine Occult Blood Small H Urine Nitrate Positive H Urine Bilirubin Negative Urine Urobilinogen Less than 2 Ur Leukocyte Esterase Moderate H Urine RBC 2 Urine WBC 15 H Urine WBC Clumps Rare H Amorphous Sediment Rare H Urine Mucus Moderate H Micro UA Comment Culture indicated Urine Culture Comments Culture indicated Preliminary micro results at discharge 03/03/18 23:20 Urine Culture - Preliminary Catheterized Urine Pseudomonas species Group D Enterococcus 03/03/18 23:10 Urine Culture - Preliminary Catheterized Urine Pseudomonas species Group D Enterococcus Impressions ITS Impressions Abdomen/Pelvis CT 03/04/18 02:13 CONCLUSION: 1. No significant change in the bowel gas pattern since the prior study. Multiple loops of dilated fluid-containing bowel are again noted. 2. Stable appearing anterior abdominal wall hernia containing loop of bowel. The size of the bowel loops are unchanged. Abdomen X-Ray 03/04/18 04:27 CONCLUSION: 1. Relative paucity of bowel gas with nonobstructive bowel gas pattern. 2. Nasogastric tube in place. 3. Bilateral percutaneous nephrostomy tubes in place. Discharge Plan Discharge Disposition Patient Disposition: Discharge Home Discharge Condition Condition: Stable Discharge Order Discharge Orders: Discharge Order (Routine); Ordered 03/06/18 Ordered By: Estrella Oviedo Discharge Details Anticipated Discharge Date: 03/06/18 Discharge Comment: DC when able to tolerate food and cleared by Dr Douglas CRS Physicians Team ED Provider: Tristen Bedolla Primary Care Provider: Addy Oakley Attending Provider: Estrella Oviedo Other Providers: Daniel Douglas Rxs /Orders / Referrals /Forms Prescriptions: New hydrocodone-acetaminophen [[place]] 5-325 mg tablet 1 tab PO Q4-6H PRN (Reason: acute pain exemption) Qty: 10 RF: 0 Continue estradiol 1 mg PO DAILY RF: 0 levothyroxine [Synthroid] 175 mcg Tablet 175 mcg PO EVERY OTHER DAY RF: 0 ceftazidime 1 gram Recon Soln 1,000 mg IV DAILY RF: 0 levothyroxine [Synthroid] 150 mcg Tablet 1 tab PO EVERY OTHER DAY RF: 0 sodium bicarbonate 650 mg Tablet 650 mg PO BID RF: 0 sertraline 50 mg Tablet PO DAILY RF: 0 fentanyl 100 mcg/hr Patch 72 Hour 1 patch TRANSDERMAL Q72H RF: 0 fentanyl 25 mcg/hr Patch 72 Hour 1 patch TRANSDERMAL Q72H RF: 0 Discontinued hydrocodone-acetaminophen 5 mg PO Q2-3H PRN (Reason: Constipation) RF: 0 Referrals: Daniel Douglas MD [Physician] - See Instructions ( Please call the physician' s office to book the appointment to be seen within [1-2 weeks].) Addy Oakley MD [Primary Care Provider] - See Instructions ( Please call the physician's office to book the appointment to be seen within [2-3 days].) Discharge Instructions Patient Printed Instructions: Hydrocodone/Acetaminophen (By mouth), Ceftazidime (By injection), Bowel Obstruction (DC) Additional Instructions: Please call dr. olivas office to book the appointment to be seen within [1-2 weeks]. Please call [address]. hayward office to book the appointment to be seen within [2-3 days] take meds as prescribed in case of emergency call 911 or return to emergency room. Post Discharge Care Plan Care Plan Goals: Your Health Problems: Goals to Promote Your Health: * To prevent worsening of your condition * To maintain your health at the optimal level Directions to Meet Your Goals: * Take your medications as prescribed * Follow your dietary instruction * Follow activity as directed * Keep your appointments as scheduled * Take your immunizations and boosters as scheduled * If your symptoms worsen call your PCP * If no PCP go to Urgent Care or Emergency Room Smoking is dangerous to your health. Avoid second hand smoke. You may reach the 24-hour crisis hotline for domestic abuse at . Status ED Status: Left Department Discharge Information Discharge Date/Time: 03/06/18 14:58
--- NOTE | 2018-03-05 19:19 | P.PNCS ---
Subjective Interval history: afebrile, VSS UO good savita PO NGT dc'd Objective Result Diagrams: 03/05/18 04:56 03/05/18 04:56 Objective Remarks: PE alert Abd - soft, min tympany, stoma functioning Assessment and Plan - Plan Imp: adv diet decr IVF dc plans outpt hernia repair
[2018-03-06] MEDS: HYDROmorphone PF Inj 2 MG/ML Vial IV.PUSH PRN ×2 (05:15→11:01)
[2018-03-06] MEDS: Sertraline 50 MG Tablet PO SCH (08:39)
[2018-03-06] MEDS: Sodium Bicarbonate 650 MG Tablet PO SCH (08:39)
[2018-03-06] MEDS: Levothyroxine 150 MCG Tablet PO SCH (09:49)
[2018-03-06 12:54] VITALS: BP 169/82; PULSE 83; RESP 18; TEMP 98.2; O2SAT 95
== END 2018-03-06 14:58 | disposition home or self-care (01) | DRG 394 ==
LOC: NEPC 22:54 → NEDA 03-04 03:42 → N06 03-04 06:00
PROVIDERS: ADMIT Hospitalist; ATTEND Hospitalist
CPT/HCPCS: 74000; 74018; 74176; 80048; 80053; 81001; 83690; 83735; 85025; 87077; 87086; 87186; 90761; 90774; 90775; 90776; 90784; 96361; 96374; 96375; 96376; 97116; 97161; 99285; C8952; J0713; J1170; J2405; J3480; J7030